=== PATIENT | male | born 1945 | race Caucasian/White ===

== ENCOUNTER 2019-11-27 16:18 | Outpatient (CLI) | payer MEDICARE, SELFPAY ==
--- NOTE | ~2019-11-27 | CT_ITS ---
EXAMINATION: CT sinus wo con DATE: 11/27/2019 17:07 INDICATION: Headache TECHNIQUE: Computed tomography (CT) of the paranasal sinuses was performed without intravenous contra st. The dose-length product (DLP) was 231.47 mGy-cm. Iterative reconstruction was used. COMPARISON: 03/24/2018 FINDINGS: There is normal development and pneumatization of the paranasal sinuses. There is mild synchro assembler hilary mucosal thickening of the left maxillary sinus. Mild mucosal thickening is also noted in the ante rior ethmoidal air cells. The frontal, sphenoid, and right maxillary sinuses are clear. The bilateral ostiomeatal complexes are patent. Visualized soft tissues are unremarkable. There are 3 mm of rightw lupe deviation of the nasal septum. IMPRESSION: 1. Mild sinus disease of the left maxillary sinus and anterior ethmoidal air cells without significan t interval change. Reviewed, dictated and finalized at location A. LY PRESERVATION CASEWORKER IMPRESSION: 1. Mild sinus disease of the left maxillary sinus and anterior ethmoidal air ce lls without significant interval change.
== END 2019-11-27 16:19 | disposition home or self-care (01) ==
PROVIDERS: PCP Internal Medicine; Visit Provider Internal Medicine
DX: R51 Headache (principal)
CPT/HCPCS: 70486

== ENCOUNTER 2020-07-02 08:45 | Outpatient (RCR) | payer MEDICARE, SELFPAY ==
--- NOTE | 2020-05-18 09:08 | PTOPEVAL ---
PHYSICAL THERAPY EVALUATION AND PLAN OF CARE 05-18-2020 The PT evaluation was completed for the diagnosis of vertigo. His plan of care is scheduled for 1-2 x/week for 6 weeks. Thank you for referring Chuckie to [facility]. Please review, sign, date and return this plan of care GUANACO. I agree with and certify that the following plan of care is medically necessary. Referring Physician Date Attending Provider: DO Shin ChurchPT Outpatient Evaluation Start: 05/18/20 08:09 Document 05/18/20 08:00 RAPHAEL (Rec: 05/18/20 09:08 RAPHAEL [id number]) Outpatient Past Medical History Past Medical History Source of Past Medical History Patient Neurological History Hx Neurological Disorders No Significant History Cardiovascular History Hx Coronary Stent Yes: 2016 X 1 Hx Hypercholesterolemia Yes: meds Hx Hypertension Yes: meds Hx Myocardial Infarction Yes: 2017 Hx Other Cardiac Disorders Yes: DR PINZON ONCE A YR Respiratory History Hx Respiratory Disorders No Significant History Gastrointestinal History Hx Crohn's Disease Yes: HEMICOLECTOMY Hx Gastroesophageal Reflux Disease Yes Genitourinary History Hx Dialysis Yes: JUN 2019- AUG 2019; monitoring-no longer have dialysis Hx Renal Disease Yes: STAGE [address] RM ONCE A MONTH Musculoskeletal History Hx Orthopedic Surgery Yes: RT ROTATOR CUFF REPAIR, LT FOOT surgery Hematological History Hx Hematological Disorders No Significant History Endocrine History Hx Diabetes Yes: meds HEENT History Hx Cataracts Yes: AYAH CATARACTS REMOVE Hx Macular Degeneration Yes Integumentary History Hx Other Skin Disorders Yes: 07/02/19 PORT A CATH INSERTED Reproductive History Hx Reproductive Disorders No Significant History Psychosocial History Hx Psychiatric Disorders No Significant History Pain History History of Any Previous or Ongoing No Significant History Instance of Pain Anesthesia History Hx Anesthesia Reactions No Significant History Evaluation Information Problem Diagnosis vertigo Onset April 16 2020 Previous Treatments Previous Treatments For This Problem no previous PT for dizziness Prior Level of Function Activity Level (Last 3 Months) Occupation retired Activity of Daily Living Ability Independent Indoor/Home Mobility Independent Community Mobility Independent Stairs Ability Independent Functional Cognition (Planning, Shopping Independent , Taking Medications) Cooking Yes Cleaning
--- NOTE | 2020-05-28 14:30 | PCPTNOTE ---
cancel appt for Jun 03; due to pt feeling better. He wants to keep the last reeval appt; if doing OK, he will call and cancel it;
--- NOTE | 2020-06-08 09:52 | PCPTNOTE ---
pt called and canceled today's appt;
--- NOTE | 2020-07-02 09:18 | PTOPEVAL ---
PHYSICAL THERAPY DISCHARGE 07-02-2020 Refer to the clinical summary below. All the goals were achieved. He will be discharged at this time. Thank you for referring Mr. Hickey to [facility]. Please review, sign, date and return this discharge GUANACO. I agree with and certify that the following plan of care is medically necessary. Referring Physician Date Attending Provider: Beau Goodwin, *PT Outpatient Discharge Document 07/02/20 08:50 RAPHAEL (Rec: 07/02/20 09:18 RAPHAEL [email or web address]) Subjective Information Chuckie states that he is doing Query Text:As Reported By Patient/ everything and not having any Family dizziness anymore- playing golf, outside yard work, inside house work; has the exercise to do if he does ever start to have dizziness again . He agrees to discharge from PT services. Self assessment Dizziness Handicap Index is score of 0. Pain Assessment Timing of Pain Assessment Timing of Pain Assessment Assessment Self Report Self Report Pain Level 0 Pain Score Pain Score 0: Self Report Lower Extremity Muscle Strength Testing General Lower Extremity Strength Gross Lower Extremity Strength activities: performed without any issues with dizziness or balance: -supine/sit transfer - pick up attendant an item off the floor - standing and turning head to the R and L 3x; - gaze stabilization in standing, 20 reps with head motions R/L and up/down; Gait Assessment Gait Assessment Ambulation Assistive Devices None Ambulation Ability Independent Additional Ambulation Comments good gait pattern, no unsteadiness or problems with walking; Rehab Teaching Rehab Teaching Teaching Topic Rehab Teaching Topic Components Diagnosis,Home Program Recipient Patient Learning Preferences Audio,Demonstration,Discussion ,One-on-One Instruction Barriers to Learning None Readiness to Learn Excellent Response Returns Demonstration, Verbalizes Understanding Method Demonstration,Discussion,One- On-One Instruction Additional Rehab Teachin
== END 2020-07-02 13:26 | disposition home or self-care (01) ==
LOC: ANHPT 08:45
PROVIDERS: PCP Internal Medicine; Visit Provider Internal Medicine
DX: R42 Dizziness and giddiness (principal)
CPT/HCPCS: 97110; 97161

== ENCOUNTER → 2020-09-29 08:53 | Outpatient (CLI) | payer MEDICARE, SELFPAY ==
--- NOTE | ~2020-09-29 | XR_ITS ---
EXAMINATION: XR TMJ BI DATE: 09/29/2020 09:23 INDICATION: Jaw pain TECHNIQUE: Open and closed mouth views of the left and right temporomandibular joints were obtained. 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 Alignment is normal with normal motion of the mandibular condyles. No fractures. Dental implants at the mandible and maxilla. IMPRESSION: 1. 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 Reviewed, dictated and finalized at location B. SIT BUS OPERATOR
== END ==
PROVIDERS: PCP Internal Medicine; Visit Provider Nurse Practitioner
DX: R68.84 Jaw pain (principal); M19.09 Primary osteoarthritis, other specified site
CPT/HCPCS: 70330

== ENCOUNTER 2021-02-20 10:08 | Emergency (ER) | payer MEDICARE, SELFPAY ==
--- NOTE | ~2021-02-20 | US_ITS ---
EXAMINATION:US venous doppler LE LT INDICATION:Left leg swelling and pain TECHNIQUE: Multiple grayscale, color flow and Doppler images of the left lower extremity deep venous systems were obtained and reviewed. COMPARISON:No prior studies for comparison. FINDINGS: The common femoral, superficial femoral and popliteal veins demonstrate normal respiratory variation, augmentation and compressibility. Color flow is also seen within the posterior tibial, pe roneal, greater saphenous and profunda veins. IMPRESSION: 1: No lower extremity deep venous thrombosis. Reviewed, dictated and finalized at location A.
--- NOTE | ~2021-02-20 | XR_ITS ---
XR foot LT min 3V 02/20/2021 10:51 Indication: Left foot pain and swelling Procedure: 4 views left foot Comparison: 11/18/2020 Findings: There is mild osteoarthritis of the first MTP joint. No fracture, subluxation or dislocatio n is identified. No erosive changes. Lisfranc joint intact. There are soft tissue swelling lateral to the ankle. No foreign bodies. There is a calcaneal enthesophyte at the plantar surface. Impression: 1: No acute fracture. Reviewed, dictated and finalized at location A. Impression: 1: No acute fracture.
--- NOTE | ~2021-02-20 | XR_ITS ---
XR ankle LT min 3V 02/20/2021 10:51 Indication: Left foot and ankle swelling. Golf injury. Procedure: 4 views left ankle Comparison: 05/26/2011 Findings: There is a chronic fracture deformity posterior superior margin of the calcaneus. There is an ossific density distal to the fibula, suspicious for avulsion fracture. There is moderate lateral soft tissue swelling. Ankle mortise intact. Talar dome within normal limits. There is a degenerative calcaneal enthesophyte. Impression: 1: Probable distal fibular avulsion fracture, possibly acute. Moderate lateral soft tissue swelling. Reviewed, dictated and finalized at location A. Impression: 1: Probable distal fibular avulsion fracture, possibly acute. Moderate lateral soft tissue swelling.
[2021-02-20 10:13] VITALS: BP 137/73; PULSE 88; RESP 18; TEMP 36.6; O2SAT 98
--- NOTE | 2021-02-20 10:41 | ED.GENADULT ---
HPI - General Adult General Chief complaint: Extremity Injury, Lower Stated complaint: L foot swelling,pain Time Seen by Provider: 02/20/21 10:15 Source: patient Mode of arrival: ambulatory Limitations: no limitations History of Present Illness HPI narrative: Patient presents for evaluation of pain and swelling in the left ankle and left foot. He indicates 12 days ago he was playing golf and felt as though his shoe was too tight. At that time he noted swelling to the left ankle and foot, which has persisted since that time. He denies any trauma to the affected area. He states with elevation of the left lower extremity he does not experience any pain. However he does have pain in the left ankle and foot when the left lower extremity is dependent. He states that his pain is sharp, shooting, burning, aching with associated numbness and tingling. He rates the pain 6 out of 10 in severity with his left leg dependent. He has been taking Tylenol for pain. Has an underlying history of hypertension, hyperlipidemia, diabetes, Crohn's, CAD status post stent placement, CKD, previously on dialysis. Of note, he had some type of operative procedure by Dr Gomez on the left ankle/foot many years ago after he sustained an injury to the affected area from the ladder. Related Data Home Medications Medication Instructions Recorded Confirmed adalimumab 40 mg/0.8 mL 40 mg SUB-Q [id number] 09/03/19 11/18/20 subcutaneous syringe kit aspirin 81 mg tablet,delayed 81 mg PO DAILY 09/03/19 11/18/20 release atorvastatin 40 mg tablet 40 mg PO DAILY 09/03/19 11/18/20 azathioprine 75 mg tablet 75 mg PO DAILY 09/03/19 11/18/20 carvedilol 12.5 mg tablet 12.5 mg PO Q12H 09/03/19 11/18/20 multivitamin 1 tablet PO DAILY 09/03/19 11/18/20 Ocuvite Eye Health 1 tablet PO DAILY 10/18/19 11/18/20 Allergies Allergy/AdvReac Type Severity Reaction Status Date / Time No Known Allergies Allergy Verified 02/20/21 10:23 Review of Systems Review of Systems: Narrative: CONSTITUTIONAL: Denies fever, chills, or sweats. EYES: Denies visual changes, redness, or discharge. ENT: Denies rhinorrhea, congestion, sore throat, or otalgia. CARDIOVASCULAR: Denies chest pain, palpitations, or edema. RESPIRATORY: Denies cough or dyspnea. GASTROINTESTINAL: Denies abdominal pain, nausea, vomiting, or diarrhea. GENITOURINARY: Denies dysuria or hematuria. SKIN: Reports redness to left ankle left foot denies rash or itching. MUSCULOSKELETAL: Reports pain in left ankle and foot. Denies back pain or myalgia. NEUROLOGIC: Denies headache, numbness, dizziness, or weakness. PSYCHIATRIC: Denies anxiety or depression. [facility] Past Medical History Medical History CKD (chronic kidney disease) stage IV Crohn's disease Fever blister History of heart attack Hyperlipidemia Hypertension Peroneal tendinitis of left lower leg Recurrent cold sores Skin cancer Skin lesion Surgical History Surgical History (Updated 11/18/20 @ 12:53 by Denise Mejia, RT(R)) History of coronary artery stent placement x1 2016 History of foot surgery Left, Dr. Alarcon History of hemicolectomy Hx of cataract extraction Family History Family History Mother Patient's mother is Family history of cardiovascular disease Family history of heart disease in male family member before age 55 Father Patient's father is Family history of heart disease in male family member before age 55 Sibling Family history of malignant neoplasm Patient's sister is Other Breast cancer Diabetes mellitus Heart disease High cholesterol Hypertension Social History Social History Smoking status: Never smoker Alcohol intake: never Substance use: never Substance use type
[2021-02-20 11:29] LABS: Basophils Percent Auto 0.4 % (0.2-1.2); Eosinophils Absolute Auto 0.2 K/mm3 (0-0.3); Eosinophils Percent Auto 2.6 % (0-4.4); Hematocrit 34.9 % (42.0-52.0); Hemoglobin 11.3 g/dL (14.0-18.0); Immature Granulocyte Absolute 0.05 K/mm3 (0.00-0.031); Immature Granulocyte Percent A 0.7 % (0-0.5); Lymphocytes Absolute Auto 1.36 K/mm3 (0.9-3.2); Lymphocytes Percent Auto 18.3 % (18.3-44.2); Mean Corpuscular HGB Conc 32.4 g/dl (32-36); Mean Corpuscular Hemoglobin 29.6 pg (26-34); Mean Corpuscular Volume 91.4 fl (80-100); Mean Platelet Volume 8.7 fl (7.4-10.4); Monocytes Absolute Auto 0.7 K/mm3 (0.1-0.6); Monocytes Percent Auto 8.7 % (2.6-8.5); Neutrophils Absolute Auto 5.2 K/mm3 (1.3-6.7); Neutrophils Percent Auto 69.3 % (45.5-73.1); Platelet Count Result 219 k/mm3 (150-375); Red Blood Count 3.82 M/mm3 (4.6-6.20); Red Cell Distribution Width 14.6 % (11.5-14.5); White Blood Count 7.5 K/mm3 (4.5-10.0)
[2021-02-20 11:38] LABS: Prothrombin Time 14.1 Seconds (11.1-14.7)
[2021-02-20 11:39] LABS: Partial Thromboplastin Time 29.2 SECONDS (22.3-36.8)
[2021-02-20 11:42] LABS: Alanine Aminotransferase 22 U/L (4-50); Albumin Level 3.9 g/dL (3.5-5.1); Alkaline Phosphatase 128 U/L (38-126); Anion Gap 7 mmol/L (8-16); Aspartate Amino Transferase 33 U/L (17-59); Bilirubin,Total 0.3 mg/dL (0.2-1.3); Blood Urea Nitrogen 41 mg/dL (9-20); Calcium 9.4 mg/dL (8.4-10.2); Carbon Dioxide 23 mmol/L (22-30); Chloride 110 mmol/L (98-107); Estimated CRCL calculation 20 ml/min; Estimated Glomerular Filt Rate 20; Glucose 154 mg/dL (75-110); Potassium 4.6 mmol/L (3.4-5.0); Sodium 140 mmol/L (137-145)
[2021-02-20 11:56] LABS: Erythrocyte Sedimentation Rate 133 mm/hr (0-20)
[2021-02-20 12:01] LABS: CRP 5.7 mg/dL (<1.0); Creatine Kinase 64 U/L (55-170)
[2021-02-20 12:35] VITALS: BP 142/78; PULSE 74; RESP 16; O2SAT 98
== END 2021-02-20 12:52 | disposition home or self-care (01) ==
PROVIDERS: Emergency Provider Nurse Practitioner; PCP Internal Medicine
DX: L03.116 Cellulitis of left lower limb (principal); S82.832A Other fracture of upper and lower end of left fibula, initial encounter for closed fracture; E78.5 Hyperlipidemia, unspecified; I25.10 Atherosclerotic heart disease of native coronary artery without angina pectoris; K50.90 Crohn's disease, unspecified, without complications; E11.22 Type 2 diabetes mellitus with diabetic chronic kidney disease; I12.9 Hypertensive chronic kidney disease with stage 1 through stage 4 chronic kidney disease, or unspecified chronic kidney disease; N18.4 Chronic kidney disease, stage 4 (severe); I25.2 Old myocardial infarction; Z85.828 Personal history of other malignant neoplasm of skin; Z95.5 Presence of coronary angioplasty implant and graft; Z98.49 Cataract extraction status, unspecified eye; X58.XXXA Exposure to other specified factors, initial encounter
CPT/HCPCS: 36415; 73610; 73630; 80053; 82550; 83735; 85025; 85610; 85652; 85730; 86140; 93971; 99284

== ENCOUNTER 2021-02-24 09:26 | Inpatient (IN) | payer MEDICARE, SELFPAY ==
--- NOTE | ~2021-02-24 | XR_ITS ---
EXAMINATION: XR chest PICC line INDICATION: PICC insertion TECHNIQUE: Portable AP chest at 1556 hours COMPARISON: 07/07/2019 FINDINGS: A right upper extremity PICC ends with its tip at the superior cavoatrial junction. There i s no pleural effusion or pneumothorax. The lungs are free of acute opacities. The cardiomediastinal s ilhouette is normal. IMPRESSION: 1. Right upper extremity PICC at the superior cavoatrial junction. Reviewed, dictated and finalized at location A.
--- NOTE | ~2021-02-24 | MR_ITS ---
EXAMINATION: MR ankle LT wo con DATE: 02/25/2021 08:58 INDICATION: Left ankle infection presenting with pain and swelling TECHNIQUE: Magnetic resonance imaging (MRI) of the left ankle was performed without intravenous contr ast. Sequences included axial, sagittal and coronal T1-weighted FSE and T2-weighted FS FSE. COMPARISON: Left ankle radiographs dated 02/24/2021 FINDINGS: Bones/other: Again seen is an old healed fracture deformity of the calcaneus. Alignment remains essentially anatom ic. No acute fracture. There is a region of osteolysis in the lateral aspect of the calcaneal body wi th destruction of the trabecular pattern and increased T2 signal with loss of normal T1 marrow fat si gnal consistent with osteomyelitis. The region of trabecular destruction measures approximately 3.4 c m anteroposteriorly, 1.6 cm medial to lateral and approximately 2.2 cm craniocaudally. This extends t o a cortical erosion at the trochlear eminence. There is also posterior extension with communication with chronic appearing screw tracks with surrounding sclerotic margins related to an earlier calcanea l internal fixation. There appears to be a sinus tract extending from the cortical erosion at the ret rocochlear eminence to a 2.5 x 2.7 x 0.9 cm loculated fluid collection in the subcutaneous tissue bibi rounding the peroneal tendon sheath consistent with a likely abscess. No definitive direct communicat ion with the minimal fluid in the tendon sheath. There is more extensive edema throughout the calcane us but no evident T1 marrow signal loss in the immediate subarticular bone to suggest medication with the subtalar or calcaneocuboid joints which demonstrate mild osteoarthritis. Remaining joint spaces appear relatively preserved. Medial ankle ligaments: Deep and superficial deltoid ligaments as well as the spring ligament are normal. Lateral ankle ligaments: The anterior and posterior inferior tibiofibular ligaments are normal. The anterior talofibular, calc aneofibular and posterior talofibular ligaments are normal. Tendons: Prominent thickening of the distal Achilles tendon consistent with tendinosis. There is a small sagit tally oriented cleft at the distalmost Achilles tendon which immediately overlies the entry site for the calcaneal screw tract suggesting this is related to prior. Peroneus longus tendon appears normal. There is a longitudinal split tear of the peroneus brevis brevis tendon centered at the level of the tip of the lateral malleolus. The tibialis anterior and extensor hallucis longus and extensor digito rum longus tendons are normal. The tibialis posterior, flexor digitorum longus and flexor hallucis lo ngus tendons are normal. Plantar fascia: Moderate-sized plantar calcaneal spur. There is mild thickening of the central component of the plant ar aponeurosis consistent with mild enthesopathy without surrounding soft tissue or marrow edema to s uggest acute plantar fasciitis. Fluid: Physiologic amount fluid in the joint spaces. No other abnormal fluid collections aside from the prev ious noted presumptive abscess at the lateral hindfoot. IMPRESSION: 1. Region of osteomyelitis in the posterolateral calcaneal body with suggestion of cortical destructi on with sinus tract near the retroperitoneum is communicating with a 2.5 x 2.7 x 0.9 cm subcutaneous abscess extending along the posterior and lateral margins of the peroneal tendon sheath. 2. Old healed fracture deformity of the calcaneus with old screw tracks at the posterior tuberosity w hich appear to communicate with the region of osteomyelitis. 3. Moderate tendinosis and distal Achilles tendon. 4. Mild enthesopathy of the proximal plantar aponeurosis. Reviewed, dictated and finalized at location A. 10
--- NOTE | ~2021-02-24 | XR_ITS ---
XR ankle LT min 3V DATE: 02/24/2021 10:10 INDICATION: Pain and swelling. No known injury. Diabetes. 4 views TECHNIQUE: 4 views COMPARISON: None FINDINGS: There is lateral soft tissue swelling of the ankle. There is a rectangular block-like defect of the posterior superior aspect of the calcaneus, possibly due to prior surgical resection. Prominent plantar calcaneal enthesopathy. No fracture or dislocation of the ankle or disruption of the ankle mortise is evident. No periosteal reaction or bone destruction. IMPRESSION: Lateral ankle soft tissue swelling; no fracture or dislocation, periosteal reaction or fidel ne destruction Plantar calcaneal enthesopathy Possible postoperative surgical defect of the posterior superior aspect of the calcaneus; recommend c linical correlation with any prior surgical intervention. Reviewed, dictated and finalized at location A. IMPRESSION: Lateral ankle soft tissue swelling; no fracture or dislocation, per iosteal reaction or bone destruction Plantar calcaneal enthesopathy Possible postoperative surgical defect of the posterior superior aspect of the calcaneus; recommend clinical correlation with any prior surgical intervention.
--- NOTE | ~2021-02-24 | XR_ITS ---
EXAMINATION: XR foot LT min 3V DATE: 02/25/2021 14:49 INDICATION: Status post surgery for left calcaneal osteomyelitis. TECHNIQUE: Dorsoplantar, two oblique and lateral views of the left foot were obtained. COMPARISON: MRI dated 02/25/2021 FINDINGS: Old healed fracture deformity of the left calcaneus. There is new likely antibiotic impregnated methy lmethacrylate in the lateral calcaneal body corresponding to the region of osteomyelitis identified o n earlier MRI. No acute fractures identified. Large plantar calcaneal spur. Mild osteoarthritis at th e subtalar and calcaneocuboid joints. Soft tissue swelling and expected postoperative gas at the late ral ankle and hindfoot. IMPRESSION: 1. Postoperative changes consistent with osteomyelitis debridement and likely antibiotic impregnated methylmethacrylate placement at the lateral aspect of the calcaneal body. See procedure note for furt her detail. Reviewed, dictated and finalized at location A. IMPRESSION: 1. Postoperative changes consistent with osteomyelitis debridement and likely a ntibiotic impregnated methylmethacrylate placement at the lateral aspect of the calcaneal body. See procedure note for further detail.
[2021-02-24 09:29] VITALS: BP 164/83; PULSE 84; RESP 23; TEMP 36.5; O2SAT 98
--- NOTE | 2021-02-24 09:45 | ED.GENADULT ---
HPI - General Adult General Chief complaint: Extremity Problem,Nontraumatic Stated complaint: RETURNING FOR FOOT ISSUE Time Seen by Provider: 02/24/21 09:33 Source: patient, RN notes reviewed and old records reviewed Mode of arrival: ambulatory Limitations: no limitations History of Present Illness HPI narrative: Patient is 75-year-old male who presents with left ankle pain that has been present for over 2 weeks had been seen over the weekend had evaluation and was diagnosed with cellulitis with plan to follow-up with orthopedic surgery this Monday patient has been using a pneumatic boot and notes that he continues to have redness and pain of the ankle joint that is worse with weightbearing he has been attempting elevation and rest without any improvement. Denies fever vomiting diarrhea or any injury or trauma denies similar occurrence in the past Related Data Home Medications Medication Instructions Recorded Confirmed adalimumab 40 mg/0.8 mL 40 mg SUB-Q [id number] 09/03/19 11/18/20 subcutaneous syringe kit aspirin 81 mg tablet,delayed 81 mg PO DAILY 09/03/19 11/18/20 release atorvastatin 40 mg tablet 40 mg PO DAILY 09/03/19 11/18/20 azathioprine 75 mg tablet 75 mg PO DAILY 09/03/19 11/18/20 carvedilol 12.5 mg tablet 12.5 mg PO Q12H 09/03/19 11/18/20 multivitamin 1 tablet PO DAILY 09/03/19 11/18/20 Ocuvite Eye Health 1 tablet PO DAILY 10/18/19 11/18/20 Allergies Allergy/AdvReac Type Severity Reaction Status Date / Time No Known Allergies Allergy Verified 02/24/21 09:35 Review of Systems Review of Systems: All systems reviewed & are unremarkable except as noted in HPI and below PMFSH Past Medical History Medical History CKD (chronic kidney disease) stage IV Crohn's disease Fever blister History of heart attack Hyperlipidemia Hypertension Peroneal tendinitis of left lower leg Recurrent cold sores Skin cancer Skin lesion Surgical History Surgical History History of coronary artery stent placement x1 2017 History of foot surgery Left, Dr. Alarcon History of hemicolectomy Hx of cataract extraction Family History Family History Mother Patient's mother is Family history of cardiovascular disease Family history of heart disease in male family member before age 55 Father Patient's father is Family history of heart disease in male family member before age 55 Sibling Family history of malignant neoplasm Patient's sister is Other Breast cancer Diabetes mellitus Heart disease High cholesterol Hypertension Social History Social History Smoking status: Never smoker Alcohol intake: never Substance use: never Substance use type: does not use Gender identity (if verbalized by the patient): Male Exam Narrative: Exam Narrative: GENERAL: Well-appearing, well-nourished, and in no acute distress. HEAD: Normocephalic, atraumatic. EYES: PERRLA and EOMI. ENT: Nares clear, no rhinorrhea or epistaxis. Mucous membranes moist. CHEST: Clear to auscultation. No respiratory distress. No wheezes rales or rhonchi HEART: Regular rate and rhythm. No murmur heard. Normal peripheral pulses. EXTREMITIES: Patient with swelling around the left ankle joint with redness and tenderness worse at the lateral and posterior aspect. No open wounds or lymphangitic streaking or fluctuance noted SKIN: Warm, dry, no rash. NEURO: No focal deficits. Alert and oriented x3. Neurovascularly intact. Capillary refill less than 2 seconds PSYCH: Normal mood and affect. Course Course Emergency Course: Patient evaluated the emergency department for his findings will be brought into the hospital with orthopedic evaluation to include MRI
[2021-02-24 10:24] LABS: Basophils Percent Auto 0.4 % (0.2-1.2); Eosinophils Absolute Auto 0.2 K/mm3 (0-0.3); Eosinophils Percent Auto 3.1 % (0-4.4); Hematocrit 32.5 % (42.0-52.0); Hemoglobin 10.7 g/dL (14.0-18.0); Immature Granulocyte Absolute 0.08 K/mm3 (0.00-0.031); Immature Granulocyte Percent A 1.2 % (0-0.5); Lymphocytes Absolute Auto 1.59 K/mm3 (0.9-3.2); Lymphocytes Percent Auto 23.3 % (18.3-44.2); Mean Corpuscular HGB Conc 32.9 g/dl (32-36); Mean Corpuscular Hemoglobin 29.4 pg (26-34); Mean Corpuscular Volume 89.3 fl (80-100); Mean Platelet Volume 8.7 fl (7.4-10.4); Monocytes Absolute Auto 0.6 K/mm3 (0.1-0.6); Monocytes Percent Auto 8.7 % (2.6-8.5); Neutrophils Absolute Auto 4.3 K/mm3 (1.3-6.7); Neutrophils Percent Auto 63.3 % (45.5-73.1); Platelet Count Result 253 k/mm3 (150-375); Red Blood Count 3.64 M/mm3 (4.6-6.20); Red Cell Distribution Width 14.2 % (11.5-14.5); White Blood Count 6.8 K/mm3 (4.5-10.0)
[2021-02-24 10:33] LABS: Anion Gap 9 mmol/L (8-16); Blood Urea Nitrogen 43 mg/dL (9-20); CRP 1.7 mg/dL (<1.0); Calcium 9.1 mg/dL (8.4-10.2); Carbon Dioxide 21 mmol/L (22-30); Chloride 109 mmol/L (98-107); Estimated Glomerular Filt Rate 21; Glucose 206 mg/dL (75-110); Potassium 4.7 mmol/L (3.4-5.0); Sodium 139 mmol/L (137-145); Uric Acid 6.8 mg/dL (3.5-8.5)
[2021-02-24 10:40] LABS: Erythrocyte Sedimentation Rate > 140 mm/hr (0-20)
[2021-02-24 11:15] VITALS: BP 159/88; PULSE 58; RESP 16; O2SAT 98
--- NOTE | 2021-02-24 11:30 | PC.NURSE ---
Pt resting on cart, non-labored respirations, aware of plan for admission. Pt reports L foot soreness
--- NOTE | 2021-02-24 13:48 | PC.NURSE ---
Report called to Brionna PALOMARES on , will call back when room is cleaned Pt ambulatory steady gait to ANNA
--- NOTE | 2021-02-24 13:55 | PM.IMHP ---
H&P: HPI History of Present Illness Date/Time: 02/24/21 13:55Thianju is a 75-year-old male patient who is borderline diabetic. The patient stated approximately 2 weeks ago he was out on the golf course when he noticed some pain to his left ankle. He felt like his foot was swollen and his shoe was too tight. He had no injury to that left ankle. Patient stated that this last Monday he came to the emergency room and was treated with antibiotics. The patient had been taking clindamycin since this past Monday. The patient tells me that the infection really isn't getting any worse but is not getting it any better either. He said the redness is about the same since Monday and the swelling and pain are about the same. The patient did not notice any drainage from that left ankle. He told me that he did have a heel reconstruction on that left heel. Dr. pringle has been consulted from the emergency room and agrees to see the patient. The patient stated he has seen Dr. pringle in the past but not for this cellulitis now. his white count is normal. H&H 10.7 and 32.5. ESR is greater than 140. The patient's creatinine is 2.9. However the patient does have chronic renal failure and had dialysis at 1 time. The patient was started on Primaxin and vancomycin per antibiotics Stewardship for diabetic cellulitis. left ankle x-ray was read as lateral ankle soft tissue swelling no fractures or dislocation periosteal reaction or bone destruction. the patient has no fever chills. The patient had a venous Doppler on 02/20/2021 which was read as normal. No DVT. The patient is being admitted to Observation on the date of service of 02/24/2021. Side note please see ER records from 02/20/2021 when he was 1st seen for this problem. Chief Complaint: Infection left ankle Review of Systems Review of Systems: All systems reviewed & are unremarkable except as noted in HPI and below Constitutional: Constitutional: Reports as per HPI and Reports no additional constitutional complaints Eyes: Eyes: Reports as per HPI and Reports no additional eye complaints ENT: Reports system reviewed and no additional complaints, except as documented and Reports Normal hearing present Cardiovascular: Cardiovascular: Reports no additional cardiovascular complaints Respiratory: Respiratory: Reports no additional respiratory complaints and Reports no additional respiratory complaints Gastrointestinal: Gastrointestinal: Reports as per HPI and Reports no additional gastrointestinal complaints Musculoskeletal: Musculoskeletal: Reports no additional musculoskeletal complaints Integumentary/Breasts: Skin/Breast: Reports system reviewed and no additional complaints, except as docu and Reports as per HPI Neurologic: Reports system reviewed and no additional complaints, except as documented, Reports as per HPI and Reports Normal hearing present Psychiatric: Psychiatric: Reports no additional psychiatric complaints and Reports as per HPI Endocrine: Endocrine: Reports no additional endocrine complaints Hematologic/Lymphatic: Hematologic/Lymphatic: Reports no additional hematologic/lymphatic complaints Allergic/Immunologic: Allergic/Immunologic: Reports no additional allergic/immunologic complaints [facility] Past Medical History Medical History (Updated 02/24/21 @ 14:23 by Dea Cheney NP) CKD (chronic kidney disease) stage IV Crohn's disease Fever blister History of heart attack Hyperlipidemia Hypertension Peroneal tendinitis of left lower leg Recurrent cold sores Skin cancer Skin lesion Surgical History Surgical History (Updated 02/24/21 @ 14:17 by Dea Cheney NP) History of coronary artery stent placement x1 2016 History of foot surgery Left calcaneus fracture reattached, Dr. Alarcon History of hemicolectomy due to Crohn's Hx of cataract extraction Family History Family History M
[2021-02-24 15:07] VITALS: BP 172/81; PULSE 59; RESP 17; TEMP 36.6; O2SAT 100
--- NOTE | 2021-02-24 15:30 | PM.CNOR ---
Assessment and Plan Assessment and plan (1) Cellulitis of left ankle: Code(s): L03.116 - Cellulitis of left lower limb Status: Acute Assessment and Plan: 75-year-old gentleman with a 2 week history of lateral left ankle swelling and redness. Unrelieved with 4 days of oral antibiotics. Medical comorbidities including diabetes, renal failure. Patient started on IV antibiotics. Agree with plan for MRI to rule out abscess or septic tenosynovitis. Will await results of MRI and determine definitive treatment. Conservative treatment with elevation, ice and activity modifications in the interim. (2) Peroneal tendinitis of left lower leg: Code(s): M76.72 - Peroneal tendinitis, left leg Status: Acute (3) CKD (chronic kidney disease): Qualifiers: Chronic kidney disease stage: stage 3 (moderate) Chronic kidney disease stage 3 subtype: stage 3b (GFR 30-44) Qualified Code(s): N18.32 - Chronic kidney disease, stage 3b Code(s): N18.9 - Chronic kidney disease, unspecified Status: Chronic (4) Type 2 diabetes mellitus: Qualifiers: Diabetes mellitus long goods drier insulin use: without long-term use Diabetes mellitus complication status: with neurologic complications Diabetes mellitus complication detail: with polyneuropathy Qualified Code(s): E11.42 - Type 2 diabetes mellitus with diabetic polyneuropathy Code(s): E11.9 - Type 2 diabetes mellitus without complications Status: Chronic History of Present Illness HPI Consult date: 02/24/21 Requesting physician: Jorden Man PA-C Chief complaint: cellulitis left ankle Narrative: Patient known previously to me for a calcaneus fracture of the left foot approximately 10 years ago. This was complicated by wound dehiscence uncomplicated wound care. Went on to heal this. He was most recently seen November 2020 for left peroneal tendinitis where he had a cortisone injection. He states that his peroneal pain and symptoms were completely resolved by the injection. Two weeks ago patient was out of town on a golf trip bony noted redness, swelling and pain to the lateral side of the left ankle and foot. Denies any injury. He was able to complete his golf trip continued to have swelling and redness. He presented to the emergency room here at [facility] February 20 was diagnosed with cellulitis and started on oral antibiotics. He did not have any improvement and return to the emergency room today. His initial symptoms began February 09 by his report. He is able to bear weight. He has been able to be active but with the foot in dependent position he has swelling pain and redness. Better with elevation. Review of Systems Constitutional: Constitutional: Denies fever(s) Eyes: Eyes: Denies blurry vision ENT: Reports Normal hearing present Cardiovascular: Cardiovascular: Denies chest pain and Denies dyspnea Respiratory: Respiratory: Denies dyspnea and Denies wheezing Gastrointestinal: Gastrointestinal: Denies abdominal pain Genitourinary: Genitourinary: Denies urinary urgency Musculoskeletal: Musculoskeletal: Reports as per HPI and Denies numbness Integumentary/Breasts: Skin/Breast: Denies changing lesions and Denies sores Neurologic: Reports Normal hearing present, Denies behavioral changes, Denies confusion, Denies numbness and Denies convulsions Psychiatric: Psychiatric: Denies behavioral changes, Denies confusion and Denies hallucinations Endocrine: Endocrine: Denies heat intolerance Hematologic/Lymphatic: Hematologic/Lymphatic: Denies easy bleeding Allergic/Immunologic: Allergic/Immunologic: Denies wheezing [facility] Past Medical History Medical History CKD (chronic kidney disease) stage IV Crohn's disease Fever blister History of heart attack Hyperlipidemia Hypertension Peroneal tendinitis of left lower leg Recurrent cold sores Skin cancer Skin lesion
[2021-02-24 15:45] VITALS: BMI 30.4
[2021-02-24 15:47] VITALS: BP 136/73; PULSE 71; RESP 16; TEMP 36.1; O2SAT 100
--- NOTE | 2021-02-24 15:49 | ADMGEN ---
This patient, Chuckie Hickey, was admitted to Medical Room 345-01. Patient/family oriented to hospital policies and general routines including ID bracelet, bed and alarms, visiting hours, pain management, procedures, bathroom and other care routines, personal items, smoking policy, room service/diet, and visiting hours. Information on how to activate the Rapid Response Team has been discussed. Patient/Family are encouraged to report perceived risks to care and to ask questions if they do not understand what they are told or what they should do.
[2021-02-24 16:12] LABS: Glucose Point of Care 85 (65-105)
[2021-02-24] MEDS: LACTATED RINGERS 1,000 ML 70 ML IV CONT (16:45)
[2021-02-24] MEDS: DOXAZOSIN MESYLATE 2 MG TABLET PO (17:46)
[2021-02-24 20:50] VITALS: BP 150/64; PULSE 68; RESP 16; TEMP 36.4; O2SAT 98
[2021-02-24] MEDS: FAMOTIDINE 20 MG/2 ML VIAL IV PUSH (20:55)
[2021-02-24 20:56] LABS: Glucose Point of Care 99 (65-105)
[2021-02-24 20:57] VITALS: PULSE 70
[2021-02-24] MEDS: hydrALAZINE 10 MG TABLET BY MOUTH (20:57)
[2021-02-24] MEDS: carvediloL 12.5 MG TABLET PO (20:57)
[2021-02-24] MEDS: HYDROcodone/acetaminophen (*CRX) 5-325 MG TABLET 1 TAB PO (22:47)
[2021-02-25] VITALS (21 sets, daily range): BP systolic 124–157; BP diastolic 53–77; PULSE 56–88; RESP 10–20; TEMP 35.9–37.1; O2SAT 94–100
[2021-02-25 06:07] LABS: Basophils Percent Auto 0.4 % (0.2-1.2); Eosinophils Absolute Auto 0.3 K/mm3 (0-0.3); Eosinophils Percent Auto 3.8 % (0-4.4); Hematocrit 32.8 % (42.0-52.0); Hemoglobin 10.6 g/dL (14.0-18.0); Immature Granulocyte Absolute 0.07 K/mm3 (0.00-0.031); Lymphocytes Absolute Auto 1.77 K/mm3 (0.9-3.2); Lymphocytes Percent Auto 25.6 % (18.3-44.2); Mean Corpuscular HGB Conc 32.3 g/dl (32-36); Mean Corpuscular Hemoglobin 29.4 pg (26-34); Mean Corpuscular Volume 90.9 fl (80-100); Mean Platelet Volume 8.7 fl (7.4-10.4); Monocytes Absolute Auto 0.8 K/mm3 (0.1-0.6); Monocytes Percent Auto 11.8 % (2.6-8.5); Neutrophils Percent Auto 57.4 % (45.5-73.1); Platelet Count Result 231 k/mm3 (150-375); Red Blood Count 3.61 M/mm3 (4.6-6.20); Red Cell Distribution Width 14.3 % (11.5-14.5); White Blood Count 6.9 K/mm3 (4.5-10.0)
[2021-02-25 06:17] LABS: Anion Gap 5 mmol/L (8-16); Blood Urea Nitrogen 34 mg/dL (9-20); Calcium 8.6 mg/dL (8.4-10.2); Carbon Dioxide 24 mmol/L (22-30); Chloride 110 mmol/L (98-107); Estimated CRCL calculation 23 ml/min; Estimated Glomerular Filt Rate 23; Glucose 105 mg/dL (75-110); Potassium 4.7 mmol/L (3.4-5.0); Sodium 139 mmol/L (137-145)
[2021-02-25 06:39] LABS: Hemoglobin A1C 6.2 % (<5.7)
[2021-02-25 07:30] LABS: Glucose Point of Care 96 (65-105)
[2021-02-25] MEDS: PIOGLITAZONE HCL 15 MG TAB BY MOUTH (08:10)
[2021-02-25] MEDS: azaTHIOprine 25 MG TABLET PO (08:11)
[2021-02-25] MEDS: CHOLECALCIFEROL 1,000 UNITS TABLET 2000 UNITS PO (08:11)
[2021-02-25] MEDS: carvediloL 12.5 MG TABLET PO ×2 (08:11→20:56)
[2021-02-25] MEDS: OPTI-GEN TAB 1 TABLET PO (08:11)
[2021-02-25] MEDS: ATORVASTATIN 40 MG TABLET PO (08:11)
[2021-02-25] MEDS: azaTHIOprine 50 MG TABLET PO (08:11)
[2021-02-25] MEDS: hydrALAZINE 10 MG TABLET BY MOUTH ×2 (08:11→20:57)
[2021-02-25] MEDS: MULTIVITAMINS THERAPEUTIC TAB (*BKC) 1 TABLET PO (08:11)
[2021-02-25] MEDS: FAMOTIDINE 20 MG/2 ML VIAL IV PUSH ×2 (08:12→20:55)
[2021-02-25] MEDS: LACTATED RINGERS 1,000 ML 70 ML IV CONT (08:16)
--- NOTE | 2021-02-25 10:11 | P.HPUP_ITS ---
History and Physical Update Update Date/Time: 02/25/21 10:11 History and Physical has been reviewed, including an updated exam of the patient. MRI of the left ankle performed today were reviewed. This shows abscess of the lateral ankle with questionable communication of the lateral calc aneus. Indicated for debridement with excision of the abscess and evaluation of the calcaneus. There are NO changes in the patient's condition. Risks, benefits, and alternatives have been discussed and questions answered. Patient agrees to proceed with procedure. Plan: Debridement left ankle and hindfoot.
[2021-02-25] MEDS: LACTATED RINGERS 1,000 ML 30 ML IV CONT (12:05)
--- NOTE | 2021-02-25 12:22 | PM.IMPN ---
Progress Note: A&P Assessment and Plan (1) Osteomyelitis of left ankle: Code(s): M86.9 - Osteomyelitis, unspecified Status: Acute Assessment and Plan: Left ankle MRI showed region of osteomyelitis in posterolateral calcaneal body with subcutaneous abscess along peroneal tendon sheath. He is afebrile. Continue IV Vancomycin and primaxin Orthopedic surgery consultation appreciated Planning for debridement in OR today Blood cultures pending Analgesics available as needed for pain Continue gentle IV fluids while NPO (2) Type 2 diabetes mellitus: Qualifiers: Diabetes mellitus complication detail: with polyneuropathy Diabetes mellitus complication status: with neurologic complications Diabetes mellitus senior care insulin use: without exterminator helper termite use Qualified Code(s): E11.42 - Type 2 diabetes mellitus with diabetic polyneuropathy Code(s): E11.9 - Type 2 diabetes mellitus without complications Status: Chronic Assessment and Plan: A1c is 6.2. Blood sugars well controlled. Accu-Cheks, sliding scale insulin, hypoglycemic protocol Continue pioglitazone (3) Hypertension: Code(s): I10 - Essential (primary) hypertension Status: Chronic Assessment and Plan: Blood pressures reviewed and are well controlled. Last BP 136/58. Continue carvedilol Monitor BP trends (4) Crohn's disease: Code(s): K50.90 - Crohn's disease, unspecified, without complications Status: Chronic Assessment and Plan: No acute issues. Continue home regimen (5) CKD (chronic kidney disease): Qualifiers: Chronic kidney disease stage: stage 3 (moderate) Chronic kidney disease stage 3 subtype: stage 3b (GFR 30-44) Qualified Code(s): N18.32 - Chronic kidney disease, stage 3b Code(s): N18.9 - Chronic kidney disease, unspecified Status: Chronic Assessment and Plan: Creatinine 2.7. This is actually improved from baseline on review of prior labs. He is established with Nephrology and hemodialysis is being considered. Monitor renal function Subjective Date/time seen: 02/25/21 12:23 Interval history: Date of service: 02/25/21 Chuckie Hickey is a 75 year old male with a history of CKD, Crohn's disease, CAD, HTN, HLD who is seen in follow up for right foot osteomyelitis. He is feeling well today. He reports his pain is fairly well controlled, currently 4/10. Pain increases up to 7/10 when dependent. Denies fever, chills, nausea, vomiting, diarrhea. No dizziness, lightheadedness, or weakness. No shortness of breath, cough, chest pain. He is NPO and planning for surgery this afternoon. Review of Systems Review of Systems: All systems reviewed & are unremarkable except as noted in HPI and below Exam Narrative: Exam Narrative: Mr. Hickey is a well-nourished, well-appearing 75-year-old male who is lying semi-recumbent in bed. He appears comfortable and is in NARD. Neuro: awake, alert and oriented x4, speech clear, no focal neuro deficits noted HEENMT: normocephalic, atraumatic, EOMI, sclerae anicteric, moist oral mucosa, tongue midline, nares patent Neck: supple, no lymphadenopathy Respiratory: clear to auscultation bilaterally, nonlabored breathing Cardio: regular rate, regular rhythm with S1-S2 Abdomen: nondistended, normoactive bowel sounds, soft, nontender to palpation, no rigidity or guarding Extremities: left posterolateral foot is edematous with erythema and tenderness to palpation. Right lower extremity without edema, erythema, cyanosis, clubbing, or tenderness to palpation. DP pulses 2+ bilaterally. Brisk capillary refill. Able to wiggle toes bilaterally. Skin: no rashes or lesions, warm and dry Psych: appropriate mood and affect, judgment and insight intact Objective Data Vital Signs Vital Signs: Vital Signs - 24 hr 02/24/21 15:07 02/24/21 15:47 02/24/21 20:50 Temperature 98 F 97.0 F L 97.6 F P
--- NOTE | 2021-02-25 12:39 | WPDANESEPPF ---
Anes - Initial Pre Proc Eval Procedure: Operation Date: 02/25/21 12:45 Proposed Procedures p Debridement Left Ankle - Judah Alarcon MD Date/Time: 02/25/21 12:39 Surgeon: Patricia Nava PA-C Pre Op Diagnosis: cellulitis left ankle Patient Data Age: 75 Gender: M Height: 1.73 m Weight: 90.9 kg Last Vital Signs Temp 36.7 C 02/25/21 12:05 Pulse 58 L 02/25/21 12:05 Resp 20 02/25/21 12:05 BP 135/63 02/25/21 12:05 Pulse Ox 99 02/25/21 12:05 Allergies Allergy/AdvReac Type Severity Reaction Status Date / Time No Known Allergies Allergy Verified 02/24/21 15:34 Home Medications Medication Instructions Recorded Confirmed Type adalimumab 40 mg/0.8 mL 40 mg SUB-Q [id number] 09/03/19 02/24/21 History subcutaneous syringe kit aspirin 81 mg tablet,delayed 81 mg PO DAILY 09/03/19 02/24/21 History release atorvastatin 40 mg tablet 40 mg PO DAILY 09/03/19 02/24/21 History azathioprine 75 mg tablet 75 mg PO DAILY 09/03/19 02/24/21 History carvedilol 12.5 mg tablet 12.5 mg PO Q12H 09/03/19 02/24/21 History multivitamin 1 tablet PO DAILY 09/03/19 02/24/21 History Ocuvite Eye Health 1 tablet PO DAILY 10/18/19 02/24/21 History valacyclovir 500 mg tablet 500 mg PO DAILY PRN #7 tablet 03/17/20 02/24/21 Rx doxazosin 2 mg tablet 2 mg PO QPM #90 tablet 06/18/20 02/24/21 Rx hydralazine 10 mg tablet See Rx Instructions .ROUTE 06/18/20 02/24/21 Rx .COMPLEX #180 tablet pioglitazone 15 mg tablet See Rx Instructions .ROUTE 06/18/20 02/24/21 Rx .COMPLEX #90 tablet clindamycin HCl 300 mg PO Q6H #40 cap 02/20/21 02/24/21 Rx hydrocodone-acetaminophen 1 - 2 tablet PO Q6H PRN #20 tablet 02/20/21 02/24/21 Rx cholecalciferol (vitamin D3) 2,000 unit PO DAILY 02/24/21 02/24/21 History [Vitamin D3] Laboratory Tests 02/24/21 02/24/21 02/25/21 16:09 20:52 05:41 WBC 6.9 K/mm3 K/mm3 (4.5-10.0) RBC 3.61 M/mm3 L M/mm3 (4.6-6.20) Hgb 10.6 g/dL L g/dL (14.0-18.0) Hct 32.8 % L % (42.0-52.0) MCV 90.9 fl fl (80-100) MCH 29.4 pg pg (26-34) MCHC 32.3 g/dl g/dl (32-36) RDW 14.3 % % (11.5-14.5) Plt Count 231 k/mm3 k/mm3 (150-375) MPV 8.7 fl fl (7.4-10.4) Immature Gran % (Auto) 1.0 % H % (0-0.5) Neut % (Auto) 57.4 % % (45.5-73.1) Lymph % (Auto) 25.6 % % (18.3-44.2) Park % (Auto) 11.8 % H % (2.6-8.5) Eos % (Auto) 3.8 % % (0-4.4) Baso % (Auto) 0.4 % % (0.2-1.2) Lymph # (Auto) 1.77 K/mm3 K/mm3 (0.9-3.2) Park # (Auto) 0.8 K/mm3 H K/mm3 (0.1-0.6) Eos # (Auto) 0.3 K/mm3 K/mm3 (0-0.3) Baso # (Auto) 0.0 K/mm3 K/mm3 (0.0-0.1) Abs Immat Gran (auto) 0.07 K/mm3 H K/mm3 (0.00-0.031) Absolute Neuts (auto) 4.0 K/mm3 K/mm3 (1.3-6.7) Absolute Nucleated RBC 0.0 K/mm3 K/mm3 (0.0-0.012) Nucleated RBC % 0.0 % % (0.0-0.2) Sodium Potassium Chloride Carbon Dioxide Anion Gap BUN Creatinine Estim Creat Clear Calc Estimated GFR Glucose POC Capillary Glucose 85 mg/dl mg/dl 99 mg/dl mg/dl (65-105) (65-105) Hemoglobin A1c Calcium 02/25/21 02/25/21 02/25/21 05:41 05:41 07:27 WBC RBC Hgb Hct MCV MCH MCHC RDW Plt Count MPV Immature Gran % (Auto) Neut % (Auto) Lymph % (Auto) Park % (Auto) Eos % (Auto) Baso % (Auto) Lymph # (Auto) Park # (Auto) Eos # (Auto) Baso # (Auto) Abs Immat Gran (auto) Absolute Neuts (auto) Absolute Nucleated RB
[2021-02-25] MEDS: BUPIVACAINE HCL 0.5% PF 30 ML VIAL INFILTRATE (13:33)
[2021-02-25] MEDS: VANCOMYCIN HCL 1,000 MG VIAL 1000 MG TOPICAL (13:34)
--- NOTE | 2021-02-25 14:13 | PM.PROC ---
Procedure Note - Detailed Date of procedure: 02/25/21 Pre-op diagnosis: cellulitis left ankle Post-op diagnosis: other (Left calcaneus osteomyelitis, left lateral ankle abscess, peroneus brevis tear) Procedure performed: Excision osteomyelitis left calcaneus, excision abscess left ankle, peroneal tenolysis, insertion antibiotic delivery device Description of procedure: Indications: Patient is a 75-year-old gentleman with a history of calcaneus fracture complicated by wound healing problems and postoperative infection more than 10 years ago who presented with increasing left lateral ankle redness and swelling for the past 2 weeks. MRI demonstrates osteomyelitis and abscess. Patient taken to the operating room for debridement. What was done: Patient identified in the preoperative holding. Informed consent given. Operative extremity marked. Patient received intravenous antibiotics. Patient brought to the operating room where underwent general anesthetic by anesthesia team. Positioned supine on operating room table. Time-out performed confirming the patient, site of the surgery and the plan. Left foot and ankle prepped and draped in the usual sterile surgical fashion using a ChloraPrep skin solution. Local anesthetic with 0.5% Marcaine plain. Curvilinear incision made just posterior to the lateral malleolus with a 15 blade knife. Hemostasis controlled electrocautery. Deep to the fascia 2.5 cm abscess was encountered including purulent fluid and infected soft tissue. This was sharply excised with a 15 blade knife. The fluid was cultured and sent to the lab. This was thoroughly irrigated with antibiotic solution. Deep dissection was then carried down to the lateral calcaneus. Soft tissue was elevated off the lateral wall of the calcaneus and of bony lytic lesion was identified in the lateral body of the calcaneus at the posterior tuberosity. This measured approximately 1 cm in diameter and 2 cm in depth. Rongeur and curettes were used to debride the infected portion of the calcaneus back to good solid viable bone tissue. Wound thoroughly irrigated and the bone thoroughly irrigated antibiotic solution. Gentamicin and vancomycin cement then prepared on the back table and inserted into the defect of the calcaneus. This was allowed to harden. Wound irrigated and soft tissue then closed with 0 Prolene interrupted suture. Sterile dressing applied. The patient was then woken from anesthesia, extubated and taken to the recovery room in stable condition. All sponge, needle, instrument counts were correct at the end of the case. Implants: Gentamicin, vancomycin cement Anesthesia: GLMA Surgeon: Judah Alarcon MD Territory Development Manager: 1st assistant shift supervisor Estimated blood loss (mL): 50 Tourniquet time (min): 0 Drains: No Packing: No Pathology: yes (Soft tissue abscess and cultures, Gram stain) Complications: None Condition: stable Disposition: PACU Findings: 2.5 cm subfascial abscess lateral ankle in the retro malleolar area, 1 x 2 cm calcaneal osteomyelitis.
[2021-02-25] MEDS: fentaNYL CITRATE INJ (*CRX) 100 MCG/2 ML VIAL 25 MCG IV PUSH ×4 (14:16→14:34)
[2021-02-25 14:39] LABS: Glucose Point of Care 98 (65-105)
[2021-02-25] MEDS: HYDROcodone/acetaminophen (*CRX) 5-325 MG TABLET 1 TAB PO ×2 (17:41→23:41)
[2021-02-25] MEDS: DOXAZOSIN MESYLATE 2 MG TABLET PO (17:41)
[2021-02-25] MEDS: DOCUSATE SODIUM 100 MG CAPSULE PO (17:41)
[2021-02-25] MEDS: SODIUM CHLORIDE 0.9% IV 1,000 ML 30 ML (17:42)
[2021-02-25] MEDS: HYDROmorphon 0.2MG/ML PCA(*CRX 6 MG/30 ML PCA.VIAL IV CONT (17:44)
[2021-02-25 21:12] LABS: Glucose Point of Care 143 (65-105)
[2021-02-26] VITALS (11 sets, daily range): BP systolic 118–132; BP diastolic 54–79; PULSE 63–86; RESP 16; TEMP 35.8–36.4; O2SAT 95–100
[2021-02-26] MEDS: ACETAMINOPHEN 325 MG TABLET 650 MG PO (01:55)
[2021-02-26 06:13] LABS: Hemoglobin 10.3 g/dL (14.0-18.0); Mean Corpuscular HGB Conc 32.2 g/dl (32-36); Mean Corpuscular Hemoglobin 29.3 pg (26-34); Mean Corpuscular Volume 91.2 fl (80-100); Mean Platelet Volume 9.8 fl (7.4-10.4); Platelet Count Result 198 k/mm3 (150-375); Red Blood Count 3.51 M/mm3 (4.6-6.20); Red Cell Distribution Width 14.6 % (11.5-14.5); White Blood Count 7.8 K/mm3 (4.5-10.0)
[2021-02-26 06:22] LABS: Sodium 136 mmol/L (137-145)
[2021-02-26 06:26] LABS: Anion Gap 6 mmol/L (8-16); Blood Urea Nitrogen 28 mg/dL (9-20); Calcium 8.6 mg/dL (8.4-10.2); Carbon Dioxide 23 mmol/L (22-30); Chloride 107 mmol/L (98-107); Estimated CRCL calculation 21 ml/min; Estimated Glomerular Filt Rate 21; Glucose 108 mg/dL (75-110); Potassium 4.5 mmol/L (3.4-5.0)
[2021-02-26 07:28] LABS: Glucose Point of Care 106 (65-105)
--- NOTE | 2021-02-26 08:40 | PM.PNORT ---
Progress Note: A&P Assessment and Plan (1) Acute osteomyelitis of left calcaneus: Code(s): M86.172 - Other acute osteomyelitis, left ankle and foot Status: Acute Assessment and Plan: postoperative day 1. Excision osteomyelitis left calcaneus and drainage of abscess. Surgical findings and procedure reviewed with patient. He verbalizes understanding. PT/OT today with postop shoe, toe-touch weight-bearing. Patient has fracture boot at home which we can transition to with increased weight-bearing at that time. Infectious disease consultation. Cultures/ pathology pending. PICC line for IV antibiotics Pain control (2) Cellulitis of left ankle: Code(s): L03.116 - Cellulitis of left lower limb Status: Acute (3) Peroneal tendinitis of left lower leg: Code(s): M76.72 - Peroneal tendinitis, left leg Status: Acute (4) Type 2 diabetes mellitus: Qualifiers: Diabetes mellitus retirement insulin use: without insurance coder use Diabetes mellitus complication status: with neurologic complications Diabetes mellitus complication detail: with polyneuropathy Qualified Code(s): E11.42 - Type 2 diabetes mellitus with diabetic polyneuropathy Code(s): E11.9 - Type 2 diabetes mellitus without complications Status: Chronic Subjective Subjective Date/Time Seen: 02/26/21 08:40 Patient awake and alert. Up in chair. States some pain left ankle but better than preoperative pain. Tolerating regular diet. Review of Systems Constitutional: Constitutional: Denies fever(s) Eyes: Eyes: Denies blurry vision ENT: Reports Normal hearing present Cardiovascular: Cardiovascular: Denies chest pain and Denies dyspnea Respiratory: Respiratory: Denies dyspnea and Denies wheezing Gastrointestinal: Gastrointestinal: Denies abdominal pain Genitourinary: Genitourinary: Denies urinary urgency Musculoskeletal: Musculoskeletal: Reports as per HPI and Denies numbness Integumentary/Breasts: Skin/Breast: Denies changing lesions and Denies sores Neurologic: Reports Normal hearing present, Denies behavioral changes, Denies confusion, Denies numbness and Denies convulsions Psychiatric: Psychiatric: Denies behavioral changes, Denies confusion and Denies hallucinations Endocrine: Endocrine: Denies heat intolerance Hematologic/Lymphatic: Hematologic/Lymphatic: Denies easy bleeding Allergic/Immunologic: Allergic/Immunologic: Denies wheezing Exam Const: General: No confusion Orientation/consciousness: No confusion HENMT: Head: normal to inspection, normocephalic and atraumatic Eyes: Conjunctivae: conjunctivae normal Sclera: sclerae normal Neck: Neck: supple and nontender Chest: Chest palpation & inspection: normal inspection of the chest Resp: Effort & Inspection: normal respiratory effort and no audible wheezes Cardio: Rate: regular rate Rhythm: regular rhythm : General: Yes deferred Skin: General skin exam: no rashes or lesions noted Neuro: General: No confusion Extrem: General: capillary refill normal Right upper extremity: normal to inspection Left upper extremity: normal to inspection Right lower extremity: normal to inspection and hip/thigh Details: normal to inspection Left lower extremity: hip/thigh, knee, ankle (no calf tenderness) and foot Other: Dressing changed left ankle. Incision clean dry and intact. No active drainage or bleeding. Erythema resolved. Swelling improved. Good capillary refill in the toes. Sensation light touch intact. Negative Homans. Psych: Affect: normal affect Objective Data Vital Signs Vital Signs: Vital Signs - 24 hr 02/25/21 12:05 02/25/21 14:02 02/25/21 14:15 Temperature 98.1 F 98.8 F Pulse Rate 58 L 68 60 Respiratory Rate 20 13 14 Blood Pressure 135/63 137/77 142/75 H Pulse Oximetry 99 100 98 02/25/21 14:30 02/25/21 14:51 02/25/21 15:15 Temperature 97.0 F L Pulse Rate 56 L 70 74 Respiratory Rate 10 L 19
[2021-02-26] MEDS: HYDROcodone/acetaminophen (*CRX) 5-325 MG TABLET 1 TAB PO ×2 (09:09→13:33)
[2021-02-26] MEDS: azaTHIOprine 50 MG TABLET PO (09:10)
[2021-02-26] MEDS: OPTI-GEN TAB 1 TABLET PO (09:10)
[2021-02-26] MEDS: carvediloL 12.5 MG TABLET PO ×2 (09:10→21:14)
[2021-02-26] MEDS: DOCUSATE SODIUM 100 MG CAPSULE PO ×2 (09:10→19:00)
[2021-02-26] MEDS: ATORVASTATIN 40 MG TABLET PO (09:10)
[2021-02-26] MEDS: CHOLECALCIFEROL 1,000 UNITS TABLET 2000 UNITS PO (09:10)
[2021-02-26] MEDS: ASPIRIN 81 MG ENTERIC TABLET PO (09:10)
[2021-02-26] MEDS: MULTIVITAMINS THERAPEUTIC TAB (*BKC) 1 TABLET PO (09:11)
[2021-02-26] MEDS: hydrALAZINE 10 MG TABLET BY MOUTH ×2 (09:11→21:14)
[2021-02-26] MEDS: azaTHIOprine 25 MG TABLET PO (09:11)
[2021-02-26] MEDS: FAMOTIDINE 20 MG/2 ML VIAL IV PUSH ×2 (09:11→21:15)
[2021-02-26] MEDS: PIOGLITAZONE HCL 15 MG TAB BY MOUTH (09:11)
--- NOTE | 2021-02-26 10:33 | WPDANESPN ---
Anes - Prog Note Post-Op Date/Time: 02/26/21 10:33 Cardiovascular status: normal Respiratory status: normal Airway patency: baseline Mental status: baseline Post-Op hydration status: normal Vital Signs: Last Vital Signs Temp 97.3 F L 02/26/21 08:45 Pulse 86 02/26/21 09:10 Resp 16 02/26/21 08:45 BP 130/54 L 02/26/21 08:45 Pulse Ox 98 02/26/21 08:45 Pain Score (VAS): 0 I/O: Intake & Output 02/25/21 02/26/21 02/26/21 23:59 07:59 15:59 Intake Total 300 1050 420 Output Total 700 500 Balance -400 550 420 Laboratory Tests 02/26/21 06:03 02/26/21 06:03 02/25/21 02/25/21 02/26/21 14:18 21:07 06:03 WBC 7.8 RBC 3.51 L Hgb 10.3 L Hct 32.0 L MCV 91.2 MCH 29.3 MCHC 32.2 RDW 14.6 H Plt Count 198 MPV 9.8 Sodium Potassium Chloride Carbon Dioxide Anion Gap BUN Creatinine Estim Creat Clear Calc Estimated GFR Glucose POC Capillary Glucose 98 143 H Calcium 02/26/21 02/26/21 06:03 07:26 WBC RBC Hgb Hct MCV MCH MCHC RDW Plt Count MPV Sodium 136 L Potassium 4.5 Chloride 107 Carbon Dioxide 23 Anion Gap 6 L BUN 28 H Creatinine 2.90 H Estim Creat Clear Calc 21 Estimated GFR 21 L Glucose 108 POC Capillary Glucose 106 Calcium 8.6 Microbiology 02/25/21 13:29 Ankle Left Gram Stain - Final 02/24/21 14:21 Blood Blood Culture - Preliminary 02/24/21 14:21 Blood Blood Culture - Preliminary Patient Feedback: Patient satisfied with anesthetic care.
[2021-02-26 11:24] LABS: Glucose Point of Care 104 (65-105)
--- NOTE | 2021-02-26 13:40 | PM.IMPN ---
Progress Note: A&P Assessment and Plan (1) Acute osteomyelitis of left calcaneus: Code(s): M86.172 - Other acute osteomyelitis, left ankle and foot Status: Acute Assessment and Plan: Left ankle MRI showed region of osteomyelitis in posterolateral calcaneal body with subcutaneous abscess along peroneal tendon sheath. He is afebrile. S/p excision of osteomyelitis and abscess with insertion of antibiotic delivery device by Dr. Alarcon on 02/25. Continue IV Vancomycin and primaxin Orthopedic surgery and infectious disease consultation appreciated Blood cultures pending. Wound cultures collected intraoperatively with growth of gram positive cocci. Await final results and susceptibility report. Analgesics available as needed for pain (2) Abscess of tendon sheath of left ankle: Code(s): M65.072 - Abscess of tendon sheath, left ankle and foot Status: Acute Assessment and Plan: As above. 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 Blood sugars well controlled. Accu-Cheks, sliding scale insulin, hypoglycemic protocol Continue pioglitazone (4) Hypertension: Code(s): I10 - Essential (primary) hypertension Status: Chronic Assessment and Plan: Blood pressures reviewed and are well controlled. Last BP 132/85. Continue carvedilol Monitor BP trends (5) Crohn's disease: Code(s): K50.90 - Crohn's disease, unspecified, without complications Status: Chronic Assessment and Plan: No acute issues. Continue home regimen (6) CKD (chronic kidney disease): Qualifiers: Chronic kidney disease stage: stage 3 (moderate) Chronic kidney disease stage 3 subtype: stage 3b (GFR 30-44) Qualified Code(s): N18.32 - Chronic kidney disease, stage 3b Code(s): N18.9 - Chronic kidney disease, unspecified Status: Chronic Assessment and Plan: Creatinine is actually improved from baseline on review of prior labs. He is established with Nephrology and has plans for AV fistula as hemodialysis is anticipated in the future. Monitor renal function Subjective Date/time seen: 02/26/21 13:40 Interval history: Date of service: 02/26/21 Chuckie Hickey is a 75 year old male with a history of CKD, Crohn's disease, CAD, HTN, HLD who is seen in follow up for osteomyelitis of the left calcaneus. He is feeling well today. He tolerated his surgery without difficulties. His pain has been better controlled today, mostly rated as a 3/10. This afternoon it got up to a 7/10 but improved with analgesics. He participated in therapy today and tolerated this well. He denies nausea, vomiting, fever, or chills. His last bowel movement was 2 days ago when he denies diarrhea. He denies abdominal pain or cramping. No body aches, headaches, shortness breath, cough, or chest pain. His appetite has been good. He has no other concerns. Review of Systems Review of Systems: All systems reviewed & are unremarkable except as noted in HPI and below Exam Narrative: Exam Narrative: Mr. Hickey is a well-nourished, well-appearing 75-year-old male who is lying semi-recumbent in bed. He appears comfortable and is in NARD. Neuro: awake, alert and oriented x4, speech clear, no focal neuro deficits noted HEENMT: normocephalic, atraumatic, EOMI, sclerae anicteric, moist oral mucosa, tongue midline, nares patent Neck: supple, no lymphadenopathy Respiratory: clear to auscultation bilaterally, nonlabored breathing Cardio: regular rate, regular
[2021-02-26 15:54] LABS: Glucose Point of Care 102 (65-105)
[2021-02-26] MEDS: DOXAZOSIN MESYLATE 2 MG TABLET PO (19:00)
[2021-02-26 22:54] LABS: Glucose Point of Care 118 (65-105)
[2021-02-27] VITALS (7 sets, daily range): BP systolic 117–151; BP diastolic 50–68; PULSE 63–79; RESP 16–18; TEMP 36.2–36.4; O2SAT 95–97
[2021-02-27 06:29] LABS: Hematocrit 31.2 % (42.0-52.0); Hemoglobin 10.3 g/dL (14.0-18.0)
[2021-02-27 06:40] LABS: Anion Gap 5 mmol/L (8-16); Blood Urea Nitrogen 31 mg/dL (9-20); CRP 7.8 mg/dL (<1.0); Calcium 8.9 mg/dL (8.4-10.2); Carbon Dioxide 24 mmol/L (22-30); Chloride 109 mmol/L (98-107); Estimated CRCL calculation 21 ml/min; Estimated Glomerular Filt Rate 21; Glucose 115 mg/dL (75-110); Potassium 4.2 mmol/L (3.4-5.0); Sodium 138 mmol/L (137-145)
[2021-02-27] MEDS: FAMOTIDINE 20 MG/2 ML VIAL IV PUSH ×2 (08:14→22:28)
[2021-02-27] MEDS: azaTHIOprine 25 MG TABLET PO (08:15)
[2021-02-27] MEDS: DOCUSATE SODIUM 100 MG CAPSULE PO ×2 (08:15→17:18)
[2021-02-27] MEDS: MULTIVITAMINS THERAPEUTIC TAB (*BKC) 1 TABLET PO (08:15)
[2021-02-27] MEDS: OPTI-GEN TAB 1 TABLET PO (08:15)
[2021-02-27] MEDS: ASPIRIN 81 MG ENTERIC TABLET PO (08:15)
[2021-02-27] MEDS: CHOLECALCIFEROL 1,000 UNITS TABLET 2000 UNITS PO (08:15)
[2021-02-27] MEDS: PIOGLITAZONE HCL 15 MG TAB BY MOUTH (08:15)
[2021-02-27] MEDS: ATORVASTATIN 40 MG TABLET PO (08:15)
[2021-02-27] MEDS: azaTHIOprine 50 MG TABLET PO (08:16)
[2021-02-27] MEDS: carvediloL 12.5 MG TABLET PO ×2 (08:16→22:27)
[2021-02-27] MEDS: hydrALAZINE 10 MG TABLET BY MOUTH ×2 (08:16→22:27)
[2021-02-27 10:42] LABS: Glucose Point of Care 109 (65-105)
[2021-02-27 11:47] LABS: Glucose Point of Care 118 (65-105)
[2021-02-27 13:14] LABS: Vancomycin Trough 9.7 ug/mL (10.0-20.0)
--- NOTE | 2021-02-27 14:12 | PM.PNORT ---
Progress Note: A&P Time Spent With Patient Time: POST LEFT CALCANEUS DEBRIDEMENT FOR OSTEOMYELITIS AWAITING PIC LINE FOR [facility] ABX THERAPY. HE WILL BE Dcd ONCE HIS GETS PIC LINE. CONTINUE CURRENT MANAGEMENT Subjective Subjective Date/Time Seen: 02/27/21 14:12 POST OP LEFT CALCANEUS I AND D. OSTEOMYELITIS. AWAITING PIC LINE AND IV ABX THERAPY. NO NEW COMPLAINTS. Exam Extrem: Other: VSS AFEBRILE BOOT IN PLACE, DRESSING DRY OTHERWISE NV INTACT CALF SOFT NON TENDER NEG HOMANS SIGN Objective Data Vital Signs Vital Signs: Vital Signs - 24 hr 02/26/21 20:00 02/26/21 21:14 02/26/21 23:52 Temperature 36.0 C L Pulse Rate 77 77 Respiratory Rate 16 Blood Pressure 124/58 L Pulse Oximetry 100 99 02/27/21 06:18 02/27/21 08:16 Temperature 36.3 C L Pulse Rate 72 75 Respiratory Rate 16 Blood Pressure 131/50 L Pulse Oximetry 95 Intake/Output Intake/Output: Intake & Output 02/24/21 02/25/21 02/26/21 02/27/21 23:59 23:59 23:59 23:59 Intake Total 1040 1850 3755 1180 Output Total 250 2225 1350 850 Balance 790 -375 2405 330 Meds/Results Medications: Active Medications Generic Name Dose Route Start Last Admin Trade Name Freq PRN Reason Stop Dose Admin Acetaminophen 650 mg 02/25/21 15:00 02/26/21 01:55 Acetaminophen 325 Mg Tablet PO 650 mg Q6H PRN Administration Pain Rated 1-3 Hydrocodone Bitart/Acetaminophen 1 tab 02/26/21 08:47 02/26/21 13:33 Hydrocodone/Acetaminophen (*Crx) 5-325 Mg Tablet PO 1 tab Q3H PRN Administration Pain Rated 4-6 Aspirin 81 mg 02/26/21 09:00 02/27/21 08:15 Aspirin 81 Mg Enteric Tablet PO 81 mg DAILY MEHNAZ Administration Atorvastatin Calcium 40 mg 02/25/21 09:00 02/27/21 08:15 Atorvastatin 40 Mg Tablet PO 40 mg DAILY MEHNAZ Administration Azathioprine 25 mg 02/25/21 09:00 02/27/21 08:15 Azathioprine 25 Mg Tablet PO 25 mg QAM MEHNAZ Administration Azathioprine 50 mg 02/25/21 09:00 02/27/21 08:16 Azathioprine 50 Mg Tablet PO 50 mg QAM MEHNAZ Administration Bisacodyl 10 mg 02/25/21 15:00 Bisacodyl 10 Mg Suppository RECTAL DAILY PRN Constipation Carvedilol 12.5 mg 02/24/21 21:00 02/27/21 08:16 Carvedilol 12.5 Mg Tablet PO 12.5 mg Q12H MEHNAZ Administration Dextrose 12.5 gm 02/24/21 12:40 Dextrose 50% 25 Gm/50 Ml Syringe IV PUSH PRN PRN Hypoglycemia Protocol Dextrose 12.5 gm 02/24/21 14:21 Dextrose 50% 25 Gm/50 Ml Syringe IV PUSH PRN PRN Hypoglycemia Protocol Docusate Sodium 100 mg 02/25/21 17:00 02/27/21 08:15 Docusate Sodium 100 Mg Capsule PO 100 mg BID MEHNAZ Administration Doxazosin Mesylate 2 mg 02/24/21 18:00 02/26/21 19:00 Doxazosin Mesylate 2 Mg Tablet PO 2 mg QPM MEHNAZ Administration Famotidine 20 mg 02/24/21 21:00 02/27/21 08:14 Famotidine 20 Mg/2 Ml Vial IV PUSH 20 mg Q12HR MEHNAZ Administration Glucagon 1 mg 02/24/21 12:40 Glucagon For Inj 1 Mg Vial IM PRN PRN Hypoglycemia Protocol Glucagon 1 mg 02/24/21 14:21 Glucagon For Inj 1 Mg Vial IM PRN PRN Hypoglycemia Protocol Glucose 15 gm 02/24/21 14:21 Glucose Oral Gel 15 Gm Of Glucse In 37.5 Gm Tube PO PRN PRN Hypoglycemia Protocol Hydralazine HCl 10 mg 02/24/21 21:00 02/27/21 08:16 Hydralazine 10 Mg Tablet BY MOUTH 10 mg Q12HR MEHNAZ Administration Dextrose 1,000 mls @ 100 mls/hr 02/24/21 14:21 Dextrose 5% 1,000 Ml IVPB PRN PRN Hypoglycemia Protocol Vancomycin HCl 1,500 mg in 500 mls @ 333.333 mls/hr 02/26/21 01:00 02/26/21 02:19 Vancomycin 1,500 Mg/D5w 500 Ml IVPB 02/27/21 16:00 Infused Q36H MEHNAZ Infusion Imipenem/Cilastatin Sodium 250 mg in 100 mls @ 300 mls/hr 02/24/21 17:00 02/27/21 11:55 Primaxin 250 Mg/D5w 100 Ml IVPB 300 mls/hr Q6HR MEHNAZ Administration Vancomycin HCl 1,500 mg in 500 mls @ 333.333 mls/hr 02/28/21 08:00 Vancom
--- NOTE | 2021-02-27 15:13 | PM.IMPN ---
Progress Note: A&P Assessment and Plan (1) Acute osteomyelitis of left calcaneus: Code(s): M86.172 - Other acute osteomyelitis, left ankle and foot Status: Acute Assessment and Plan: Left ankle MRI showed region of osteomyelitis in posterolateral calcaneal body with subcutaneous abscess along peroneal tendon sheath. He is afebrile. S/p excision of osteomyelitis and abscess with insertion of antibiotic delivery device by Dr. Alarcon on 02/25. Continue IV Vancomycin and primaxin Orthopedic surgery and infectious disease consultation appreciated. Long-term IV antibiotics anticipated Blood cultures pending. Wound cultures collected intraoperatively with moderate Staphylococcus aureus. Await final results and susceptibility report. Analgesics available as needed for pain (2) Abscess of tendon sheath of left ankle: Code(s): M65.072 - Abscess of tendon sheath, left ankle and foot Status: Acute Assessment and Plan: As above. (3) Type 2 diabetes mellitus: Qualifiers: Diabetes mellitus complication detail: with polyneuropathy Diabetes mellitus complication status: with neurologic complications Diabetes mellitus shelter insulin use: without shelter use Qualified Code(s): E11.42 - Type 2 diabetes mellitus with diabetic polyneuropathy Code(s): E11.9 - Type 2 diabetes mellitus without complications Status: Chronic Assessment and Plan: A1c is 6.2. Blood sugars well controlled. Accu-Cheks, sliding scale insulin, hypoglycemic protocol Continue pioglitazone (4) Hypertension: Code(s): I10 - Essential (primary) hypertension Status: Chronic Assessment and Plan: Blood pressures reviewed and are well controlled. Last BP 131/50 Continue carvedilol Monitor BP trends (5) Crohn's disease: Code(s): K50.90 - Crohn's disease, unspecified, without complications Status: Chronic Assessment and Plan: No acute issues. Continue home regimen (6) CKD (chronic kidney disease): Qualifiers: Chronic kidney disease stage: stage 3 (moderate) Chronic kidney disease stage 3 subtype: stage 3b (GFR 30-44) Qualified Code(s): N18.32 - Chronic kidney disease, stage 3b Code(s): N18.9 - Chronic kidney disease, unspecified Status: Chronic Assessment and Plan: Creatinine is actually improved from baseline on review of prior labs. He is established with Nephrology and has plans for AV fistula as hemodialysis is anticipated in the future. Monitor renal function Additional Plan Zofran prn nausea Check orthostatic blood pressures Subjective Date/time seen: 02/27/21 15:14 Interval history: Date of service: 02/26/21 Chuckie Hickey is a 75 year old male with a history of CKD, Crohn's disease, CAD, HTN, HLD who is seen in follow up for osteomyelitis of the left calcaneus. He is doing fairly well today. He reports an episode of nausea this morning which has resolved. No emesis. He has been eating and drinking well. He had two episodes of dizziness today and did not feel that it was related to positional changes. He has never had episodes like this before. He denies pain in his foot. He has been able to get up and move around without difficulty. He denies dizziness or lightheadedness with ambulation. Denies weakness. Denies abdominal pain, nausea, vomiting, fever, chills, headache, or confusion. No shortness of breath, cough, or chest pain. He has no other concerns at this time. His sister is sitting at the bedside during interview and examination. Review of Systems Review of Systems: All systems reviewed & are unremarkable except as noted in HPI and below Exam Narrative: Exam Narrative: Mr. Hickey is a well-nourished, well-appearing 75-year-old male who is lying semi-recumbent in bed. He appears comfortable and is in NARD. Neuro: awake, alert and oriented x4, speech clear, no fo
[2021-02-27] MEDS: DOXAZOSIN MESYLATE 2 MG TABLET PO (17:17)
[2021-02-27] MEDS: SODIUM CHLORIDE 0.9% IV 1,000 ML 100 ML IV CONT (17:18)
[2021-02-27 17:24] LABS: Glucose Point of Care 225 (65-105)
[2021-02-27] MEDS: INSULIN ASPART (*BKC) 100 UNITS/ML SUB-Q (17:25)
[2021-02-27 22:27] LABS: Glucose Point of Care 109 (65-105)
[2021-02-28] VITALS (7 sets, daily range): BP systolic 136–150; BP diastolic 59–73; PULSE 58–76; RESP 16–18; TEMP 36.5–36.8; O2SAT 98–100
[2021-02-28] MEDS: SODIUM CHLORIDE 0.9% IV 1,000 ML 100 ML IV CONT (03:31)
[2021-02-28 06:35] LABS: Hematocrit 30.3 % (42.0-52.0); Hemoglobin 10.1 g/dL (14.0-18.0); Mean Corpuscular HGB Conc 33.3 g/dl (32-36); Mean Corpuscular Hemoglobin 29.4 pg (26-34); Mean Corpuscular Volume 88.1 fl (80-100); Mean Platelet Volume 8.7 fl (7.4-10.4); Platelet Count Result 213 k/mm3 (150-375); Red Blood Count 3.44 M/mm3 (4.6-6.20); Red Cell Distribution Width 14.2 % (11.5-14.5); White Blood Count 7.1 K/mm3 (4.5-10.0)
[2021-02-28 06:50] LABS: Anion Gap 5 mmol/L (8-16); Blood Urea Nitrogen 31 mg/dL (9-20); CRP 6.1 mg/dL (<1.0); Carbon Dioxide 23 mmol/L (22-30); Chloride 110 mmol/L (98-107); Estimated CRCL calculation 24 ml/min; Estimated Glomerular Filt Rate 24; Glucose 124 mg/dL (75-110); Sodium 138 mmol/L (137-145)
[2021-02-28 07:11] LABS: Glucose Point of Care 107 (65-105)
[2021-02-28] MEDS: PIOGLITAZONE HCL 15 MG TAB BY MOUTH (09:54)
[2021-02-28] MEDS: ASPIRIN 81 MG ENTERIC TABLET PO (09:54)
[2021-02-28] MEDS: CHOLECALCIFEROL 1,000 UNITS TABLET 2000 UNITS PO (09:54)
[2021-02-28] MEDS: carvediloL 12.5 MG TABLET PO ×2 (09:55→22:29)
[2021-02-28] MEDS: hydrALAZINE 10 MG TABLET BY MOUTH ×2 (09:55→21:55)
[2021-02-28] MEDS: azaTHIOprine 25 MG TABLET PO (09:55)
[2021-02-28] MEDS: OPTI-GEN TAB 1 TABLET PO (09:55)
[2021-02-28] MEDS: FAMOTIDINE 20 MG/2 ML VIAL IV PUSH ×2 (09:55→21:55)
[2021-02-28] MEDS: DOCUSATE SODIUM 100 MG CAPSULE PO ×2 (09:55→18:02)
[2021-02-28] MEDS: MULTIVITAMINS THERAPEUTIC TAB (*BKC) 1 TABLET PO (09:55)
[2021-02-28] MEDS: azaTHIOprine 50 MG TABLET PO (09:55)
[2021-02-28] MEDS: ATORVASTATIN 40 MG TABLET PO (09:55)
--- NOTE | 2021-02-28 10:39 | PM.IMPN ---
Progress Note: A&P Assessment and Plan (1) Acute osteomyelitis of left calcaneus: Code(s): M86.172 - Other acute osteomyelitis, left ankle and foot Status: Acute Assessment and Plan: Left ankle MRI showed region of osteomyelitis in posterolateral calcaneal body with subcutaneous abscess along peroneal tendon sheath. He is afebrile. S/p excision of osteomyelitis and abscess with insertion of antibiotic delivery device by Dr. Alarcon on 02/25. Continue IV Vancomycin and primaxin Orthopedic surgery and infectious disease consultation appreciated. Long-term IV antibiotics anticipated with plans for PICC line tomorrow. Appreciate recommendations. Blood cultures pending. Wound cultures collected intraoperatively with moderate growth of MRSA in aerobic culture. Await final results Dressing and wound care per orthopedic surgery Analgesics available as needed for pain (2) Abscess of tendon sheath of left ankle: Code(s): M65.072 - Abscess of tendon sheath, left ankle and foot Status: Acute Assessment and Plan: As above. (3) Orthostatic hypotension: Code(s): I95.1 - Orthostatic hypotension Status: Acute Assessment and Plan: Complained of dizziness on 02/27/21. Found to be orthostatic with decline in SBP of 26 points. BP remains stable and dizziness has resolved following IV fluid rehydration Repeat orthostatics. 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 Blood sugars well controlled. Accu-Cheks, sliding scale insulin, hypoglycemic protocol Continue pioglitazone (5) Hypertension: Code(s): I10 - Essential (primary) hypertension Status: Chronic Assessment and Plan: Blood pressures reviewed and are well controlled. Last BP 136/61. Continue carvedilol Monitor BP trends (6) Crohn's disease: Code(s): K50.90 - Crohn's disease, unspecified, without complications Status: Chronic Assessment and Plan: No acute issues. Continue home regimen (7) CKD (chronic kidney disease): Qualifiers: Chronic kidney disease stage: stage 3 (moderate) Chronic kidney disease stage 3 subtype: stage 3b (GFR 30-44) Qualified Code(s): N18.32 - Chronic kidney disease, stage 3b Code(s): N18.9 - Chronic kidney disease, unspecified Status: Chronic Assessment and Plan: Creatinine is actually improved from baseline on review of prior labs. He is established with Nephrology and has plans for AV fistula as hemodialysis is anticipated in the future. Monitor renal function Subjective Date/time seen: 02/28/21 10:39 Interval history: Date of service: 02/27/21 Chuckie Hickey is a 75 year old male with a history of CKD, Crohn's disease, CAD, HTN, HLD who is seen in follow up for osteomyelitis of the left calcaneus. He is doing well today. Postop pain is well controlled and he rates it about a 4/10. He has been doing therapy exercises and tolerating this well. He denies nausea or vomiting. His appetite has been good. He has not had any further episodes of dizziness. Denies lightheadedness. Denies shortness breath, cough, or chest pain. He had a bowel movement last night. He denies any urinary symptoms. Review of Systems Review of Systems: All systems reviewed & are unremarkable except as noted in HPI and below Exam Narrative: Exam Narrative: Mr. Hickey is a well-nourished, well-appearing 75-year-old male who
[2021-02-28 12:10] LABS: Glucose Point of Care 102 (65-105)
[2021-02-28 17:30] LABS: Glucose Point of Care 105 (65-105)
[2021-02-28] MEDS: DOXAZOSIN MESYLATE 2 MG TABLET PO (18:02)
[2021-02-28] MEDS: ACETAMINOPHEN 325 MG TABLET 650 MG PO (22:27)
[2021-02-28 22:48] LABS: Glucose Point of Care 126 (65-105)
[2021-03-01 05:39] VITALS: BP 155/59; PULSE 61; RESP 18; TEMP 36; O2SAT 97
[2021-03-01 06:07] LABS: Hematocrit 31.2 % (42.0-52.0); Hemoglobin 10.1 g/dL (14.0-18.0); Mean Corpuscular HGB Conc 32.4 g/dl (32-36); Mean Corpuscular Hemoglobin 29.1 pg (26-34); Mean Corpuscular Volume 89.9 fl (80-100); Mean Platelet Volume 8.7 fl (7.4-10.4); Platelet Count Result 218 k/mm3 (150-375); Red Blood Count 3.47 M/mm3 (4.6-6.20); Red Cell Distribution Width 14.2 % (11.5-14.5); White Blood Count 7.2 K/mm3 (4.5-10.0)
[2021-03-01 06:23] LABS: Anion Gap 7 mmol/L (8-16); Blood Urea Nitrogen 29 mg/dL (9-20); CRP 3.2 mg/dL (<1.0); Carbon Dioxide 21 mmol/L (22-30); Chloride 110 mmol/L (98-107); Estimated CRCL calculation 23 ml/min; Estimated Glomerular Filt Rate 23; Glucose 143 mg/dL (75-110); Potassium 3.7 mmol/L (3.4-5.0); Sodium 138 mmol/L (137-145)
[2021-03-01 08:00] LABS: Glucose Point of Care 94 (65-105)
[2021-03-01] MEDS: azaTHIOprine 50 MG TABLET PO (09:23)
[2021-03-01] MEDS: CHOLECALCIFEROL 1,000 UNITS TABLET 2000 UNITS PO (09:23)
[2021-03-01 09:24] VITALS: PULSE 68
[2021-03-01] MEDS: carvediloL 12.5 MG TABLET PO ×2 (09:24→20:00)
[2021-03-01] MEDS: DOCUSATE SODIUM 100 MG CAPSULE PO ×2 (09:24→17:00)
[2021-03-01] MEDS: MULTIVITAMINS THERAPEUTIC TAB (*BKC) 1 TABLET PO (09:25)
[2021-03-01] MEDS: ASPIRIN 81 MG ENTERIC TABLET PO (09:25)
[2021-03-01] MEDS: PIOGLITAZONE HCL 15 MG TAB BY MOUTH (09:25)
[2021-03-01] MEDS: FAMOTIDINE 20 MG/2 ML VIAL IV PUSH ×2 (09:26→20:00)
[2021-03-01] MEDS: hydrALAZINE 10 MG TABLET BY MOUTH ×2 (09:26→20:00)
[2021-03-01 09:27] VITALS: RESP 18; O2SAT 97
[2021-03-01] MEDS: azaTHIOprine 25 MG TABLET PO (09:27)
[2021-03-01] MEDS: ATORVASTATIN 40 MG TABLET PO (09:27)
[2021-03-01] MEDS: OPTI-GEN TAB 1 TABLET PO (09:27)
--- NOTE | 2021-03-01 09:30 | PM.PNORT ---
Progress Note: A&P Assessment and Plan (1) Acute osteomyelitis of left calcaneus: Code(s): M86.172 - Other acute osteomyelitis, left ankle and foot Status: Acute Assessment and Plan: POD #4: Excision osteomyelitis left calcaneus and drainage of abscess. Continue PT/OT. TTWB LLE. Walker. Fracture boot at home- can transition to WBAT with fracture boot. Awaiting ID consult. Cultures reveal MRSA. Awaiting PICC line insertion. Will need home health arranged for dressing changes as well. Plan for suture removal at 14 days post op. Continue pain control. Elevate. Dispo: Home with home health for IV infusion/dressing changes. 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 Pain well controlled. Review of Systems Constitutional: Constitutional: Denies fever(s) Eyes: Eyes: Denies blurry vision ENT: Reports Normal hearing present Cardiovascular: Cardiovascular: Denies chest pain and Denies dyspnea Respiratory: Respiratory: Denies dyspnea and Denies wheezing Gastrointestinal: Gastrointestinal: Denies abdominal pain Genitourinary: Genitourinary: Denies urinary urgency Musculoskeletal: Musculoskeletal: Reports as per HPI and Denies numbness Integumentary/Breasts: Skin/Breast: Denies changing lesions and Denies sores Neurologic: Reports Normal hearing present, Denies behavioral changes, Denies confusion, Denies numbness and Denies convulsions Psychiatric: Psychiatric: Denies behavioral changes, Denies confusion and Denies hallucinations Endocrine: Endocrine: Denies heat intolerance Hematologic/Lymphatic: Hematologic/Lymphatic: Denies easy bleeding Allergic/Immunologic: Allergic/Immunologic: Denies wheezing Exam Const: General: No confusion Orientation/consciousness: No confusion HENMT: Head: normal to inspection, normocephalic and atraumatic Eyes: Conjunctivae: conjunctivae normal Sclera: sclerae normal Neck: Neck: supple and nontender Chest: Chest palpation & inspection: normal inspection of the chest Resp: Effort & Inspection: normal respiratory effort and no audible wheezes Cardio: Rate: regular rate Rhythm: regular rhythm : General: Yes deferred Skin: General skin exam: no rashes or lesions noted Neuro: General: No confusion Extrem: General: capillary refill normal Right upper extremity: normal to inspection Left upper extremity: normal to inspection Right lower extremity: normal to inspection and hip/thigh Details: normal to inspection Left lower extremity: hip/thigh, knee, ankle (no calf tenderness) and foot Other: Dressing changed left ankle. Incision clean dry and intact. No active drainage or bleeding. Erythema resolved. Swelling improved. Good capillary refill in the toes. Sensation light touch intact. Negative Homans. Psych: Affect: normal affect Objective Data Vital Signs Vital Signs: Vital Signs - 24 hr 02/28/21 09:55 02/28/21 14:23 02/28/21 14:25 Temperature 36.8 C 36.8 C Pulse Rate 63 58 L 64 Respiratory Rate 16 16 Blood Pressure 142/59 H 150/73 H Pulse Oximetry 100 100 02/28/21 14:27 02/28/21 22:29 02/28/21 23:23 Temperat
--- NOTE | 2021-03-01 11:28 | WPDINFPN2 ---
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 (as long as his TNF inhibitor continues) with TMP-[id number] Subjective Date/time seen: 03/01/21 11:28 Objective Data Vital Signs Vital Signs: Vital Signs - 24 hr 02/28/21 14:23 02/28/21 14:25 02/28/21 14:27 Temperature 36.8 C 36.8 C Pulse Rate 58 L 64 76 Respiratory Rate 16 16 Blood Pressure 142/59 H 150/73 H 149/69 H Pulse Oximetry 100 100 02/28/21 22:29 02/28/21 23:23 03/01/21 05:39 Temperature 36.8 C 36.0 C L Pulse Rate 72 73 61 Respiratory Rate 18 18 Blood Pressure 146/68 H 155/59 H Pulse Oximetry 98 97 03/01/21 09:24 03/01/21 09:27 Temperature Pulse Rate 68 Respiratory Rate 18 Blood Pressure Pulse Oximetry 97 Intake/Output Intake/Output: Intake & Output 02/26/21 02/27/21 02/28/21 03/01/21 23:59 23:59 23:59 23:59 Intake Total 3755 3920 4879 1230 Output Total 1350 1800 2475 1975 Balance 2405 2120 2404 -425 Meds/Results Medications: Active Medications Generic Name Dose Route Start Last Admin Trade Name Freq PRN Reason Stop Dose Admin Acetaminophen 650 mg 02/25/21 15:00 02/28/21 22:27 Acetaminophen 325 Mg Tablet PO 650 mg Q6H PRN Administration Pain Rated 1-3 Hydrocodone Bitart/Acetaminophen 1 tab 02/26/21 08:47 02/26/21 13:33 Hydrocodone/Acetaminophen (*Crx) 5-325 Mg Tablet PO 1 tab Q3H PRN Administration Pain Rated 4-6 Aspirin 81 mg 02/26/21 09:00 03/01/21 09:25 Aspirin 81 Mg Enteric Tablet PO 81 mg DAILY MEHNAZ Administration Atorvastatin Calcium 40 mg 02/25/21 09:00 03/01/21 09:27 Atorvastatin 40 Mg Tablet PO 40 mg DAILY MEHNAZ Administration Azathioprine 25 mg 02/25/21 09:00 03/01/21 09:27 Azathioprine 25 Mg Tablet PO 25 mg QAM MEHNAZ Administration Azathioprine 50 mg 02/25/21 09:00 03/01/21 09:23 Azathioprine 50 Mg Tablet PO 50 mg QAM MEHNAZ Administration Bisacodyl 10 mg 02/25/21 15:00 Bisacodyl 10 Mg Suppository RECTAL DAILY PRN Constipation Carvedilol 12.5 mg 02/24/21 21:00 03/01/21 09:24 Carvedilol 12.5 Mg Tablet PO 12.5 mg Q12H MEHNAZ Administration Dextrose 12.5 gm 02/24/21 12:40 Dextrose 50% 25 Gm/50 Ml Syringe IV PUSH PRN PRN Hypoglycemia Protocol Docusate Sodium 100 mg 02/25/21 17:00 03/01/21 09:24 Docusate Sodium 100 Mg Capsule PO 100 mg BID MEHNAZ Administration Doxazosin Mesylate 2 mg 02/24/21 18:00 02/28/21 18:02 Doxazosin Mesylate 2 Mg Tablet PO 2 mg QPM MEHNAZ Administration Famotidine 20 mg 02/24/21 21:00 03/01/21 09:26 Famotidine 20 Mg/2 Ml Vial IV PUSH 20 mg Q12HR MEHNAZ Administration Glucagon 1 mg 02/24/21 12:40 Glucagon For Inj 1 Mg Vial IM PRN PRN Hypoglycemia Protocol Glucose 15 gm 02/24/21 14:21 Glucose Oral Gel 15 Gm Of Glucse In 37.5 Gm Tube PO PRN PRN Hypoglycemia Protocol Hydralazine HCl 10 mg 02/24/21 21:00 03/01/21 09:26 Hydralazine 10 Mg Tablet BY MOUTH 10 mg Q12HR MEHNAZ Administration Dextrose 1,000 mls @ 100 mls/hr 02/24/21 14:21 Dextrose 5% 1,000 Ml IVPB PRN PRN Hypoglycemia Protocol Vancomycin HCl 1,500 mg in 500 mls @ 333.333 mls/hr 02/28/21 08:00 03/01/21 05:27 Vancomycin 1,500 Mg/D5w 500 Ml IVPB 03/10/21 23:59 Infused Q18H MEHNAZ Infusion Insulin Aspart 2 - 5 units 02/24/21 17:00 03/01/21 08:00 Insulin Aspart (*Bkc) 100 Units/Ml SUB-Q Not Given TIDWM [facility] Protocol Magnesium Hydroxide 30 ml 02/25/21 15:00 Magnesium Hydroxide Susp 30 Ml Udc PO BID PRN Constipation Morphine Sulfate 3 mg 02/26/21 08:47 Morphine Sulfate (*Crx) 4 Mg/Ml Inj IV PUS
--- NOTE | 2021-03-01 12:10 | PM.IMPN ---
Progress Note: A&P Assessment and Plan (1) Acute osteomyelitis of left calcaneus: Code(s): M86.172 - Other acute osteomyelitis, left ankle and foot Status: Acute Assessment and Plan: Left ankle MRI showed region of osteomyelitis in posterolateral calcaneal body with subcutaneous abscess along peroneal tendon sheath. He is afebrile. S/p excision of osteomyelitis and abscess with insertion of antibiotic delivery device by Dr. Alarcon on 02/25. Continue IV Vancomycin. Plan for PICC line placement today with plans to continue IV vancomycin through 03/10/2021 Appreciate orthopedic surgery and infectious disease input. Planning for discharge today following PICC line placement and arrangement of outpatient IV antibiotics with home health per ID. Wound cultures collected intraoperatively with moderate growth of MRSA in aerobic culture. Blood cultures negative to date Dressing and wound care per orthopedic surgery. He will need outpatient ortho follow-up arranged Analgesics available as needed for pain (2) Abscess of tendon sheath of left ankle: Code(s): M65.072 - Abscess of tendon sheath, left ankle and foot Status: Acute Assessment and Plan: As above. (3) Orthostatic hypotension: Code(s): I95.1 - Orthostatic hypotension Status: Acute Assessment and Plan: Complained of dizziness on 02/27/21. Found to be orthostatic with decline in SBP of 26 points. He was rehydrated with IV fluids and blood pressures improved. Symptoms have resolved. KIA hose Fall precautions (4) Type 2 diabetes mellitus: Qualifiers: Diabetes mellitus assistant terminal manager insulin use: without assistant terminal manager use Diabetes mellitus complication status: with neurologic complications Diabetes mellitus complication detail: with polyneuropathy Qualified Code(s): E11.42 - Type 2 diabetes mellitus with diabetic polyneuropathy Code(s): E11.9 - Type 2 diabetes mellitus without complications Status: Chronic Assessment and Plan: A1c is 6.2. Blood sugars well controlled. Accu-Cheks, sliding scale insulin, hypoglycemic protocol Continue pioglitazone (5) Hypertension: Code(s): I10 - Essential (primary) hypertension Status: Chronic Assessment and Plan: Blood pressures reviewed and have been generally well controlled. Last BP 155/59. Continue carvedilol Monitor BP trends (6) Crohn's disease: Code(s): K50.90 - Crohn's disease, unspecified, without complications Status: Chronic Assessment and Plan: No acute issues. Continue home regimen (7) CKD (chronic kidney disease): Qualifiers: Chronic kidney disease stage: stage 3 (moderate) Chronic kidney disease stage 3 subtype: stage 3b (GFR 30-44) Qualified Code(s): N18.32 - Chronic kidney disease, stage 3b Code(s): N18.9 - Chronic kidney disease, unspecified Status: Chronic Assessment and Plan: Creatinine is actually improved from baseline on review of prior labs. He is established with Nephrology and has plans for AV fistula as hemodialysis is anticipated in the future. Monitor renal function Subjective Date/time seen: 03/01/21 12:10 Interval history: Date of service: 02/28/21 Chuckie Hickey is a 75 year old male with a history of CKD, Crohn's disease, CAD, HTN, HLD who is seen in follow up for osteomyelitis of the left calcaneus. He is doing very well. His pain is very well controlled and he has no complaints. No further episodes of dizziness. He has been eating and drinking well. Denies shortness of breath, cough, or chest pain. He is eager for discharge home. Review of Systems Review of Systems: All systems reviewed & are unremarkable except as noted in HPI and below Exam Narrative: Exam Narrative: Mr. Hickey is a well-nourished, well-appearing 75-year-old male who is lying semi-recumbent in bed. He appears comfortable and is i
[2021-03-01 12:19] LABS: Glucose Point of Care 108 (65-105)
[2021-03-01 14:00] VITALS: BP 112/64; PULSE 70; RESP 16; TEMP 35.9; O2SAT 99
[2021-03-01 16:40] LABS: Glucose Point of Care 104 (65-105)
[2021-03-01] MEDS: DOXAZOSIN MESYLATE 2 MG TABLET PO (17:02)
[2021-03-01 19:55] VITALS: BP 142/67; PULSE 78; RESP 18; TEMP 36.4; O2SAT 97
[2021-03-01 20:00] VITALS: PULSE 76
[2021-03-01 20:09] LABS: Glucose Point of Care 123 (65-105)
[2021-03-01 20:13] LABS: Vancomycin Trough 22.7 ug/mL (10.0-20.0)
[2021-03-02] MEDS: ACETAMINOPHEN 325 MG TABLET 650 MG PO (03:40)
[2021-03-02 05:59] VITALS: BP 110/61; PULSE 72; RESP 16; TEMP 36.6; O2SAT 94
[2021-03-02 07:01] LABS: Glucose Point of Care 138 (65-105)
[2021-03-02] MEDS: FAMOTIDINE 20 MG/2 ML VIAL IV PUSH (08:29)
[2021-03-02] MEDS: azaTHIOprine 50 MG TABLET PO (08:30)
[2021-03-02] MEDS: MULTIVITAMINS THERAPEUTIC TAB (*BKC) 1 TABLET PO (08:30)
[2021-03-02] MEDS: OPTI-GEN TAB 1 TABLET PO (08:30)
[2021-03-02] MEDS: ATORVASTATIN 40 MG TABLET PO (08:30)
[2021-03-02] MEDS: azaTHIOprine 25 MG TABLET PO (08:30)
[2021-03-02] MEDS: ASPIRIN 81 MG ENTERIC TABLET PO (08:30)
[2021-03-02] MEDS: hydrALAZINE 10 MG TABLET BY MOUTH (08:30)
[2021-03-02] MEDS: DOCUSATE SODIUM 100 MG CAPSULE PO (08:30)
[2021-03-02] MEDS: PIOGLITAZONE HCL 15 MG TAB BY MOUTH (08:30)
[2021-03-02] MEDS: CHOLECALCIFEROL 1,000 UNITS TABLET 2000 UNITS PO (08:30)
[2021-03-02 08:31] VITALS: PULSE 66
[2021-03-02] MEDS: carvediloL 12.5 MG TABLET PO (08:31)
--- NOTE | 2021-03-02 10:36 | PM.DS ---
DS: Admitting Diagnosis Admitting Diagnosis Admitting Diagnosis: Left foot osteomyelitis DS: Discharge Diagnosis Discharge Diagnosis (1) Acute osteomyelitis of left calcaneus: Code(s): M86.172 - Other acute osteomyelitis, left ankle and foot Status: Acute Assessment and Plan: Left ankle MRI showed region of osteomyelitis in posterolateral calcaneal body with subcutaneous abscess along peroneal tendon sheath. He remained afebrile. He underwent excision of osteomyelitis and abscess with insertion of antibiotic delivery device by Dr. Alarcon on 02/25. Cultures collected intraoperatively showed moderate growth of MRSA. He was seen in consultation by Infectious Disease. He was treated with IV vancomycin and a PICC line was placed to continue IV vanc through 03/10/2021. He will then need long-term oral antibiotics for suppression given current therapy with TNF inhibitor. Bactrim recommended but can be adjusted based on clinical course, per ID recommendations and this will be arranged as an outpatient. He will follow-up with orthopedic surgery in 2 weeks. Home healthcare was arranged for outpatient IV antibiotic infusion and dressing care. His pain was well controlled. (2) Abscess of tendon sheath of left ankle: Code(s): M65.072 - Abscess of tendon sheath, left ankle and foot Status: Acute Assessment and Plan: As above. (3) Orthostatic hypotension: Code(s): I95.1 - Orthostatic hypotension Status: Acute Assessment and Plan: Complained of dizziness on 02/27/21. Found to be orthostatic with decline in SBP of 26 points. He was rehydrated with IV fluids and blood pressures improved. Symptoms resolved. Fall precautions discussed. Encouraged adequate p.o. hydration. Continue [place] hose. (4) Type 2 diabetes mellitus: Qualifiers: Diabetes mellitus emt intermediate insulin use: without care home use Diabetes mellitus complication status: with neurologic complications Diabetes mellitus complication detail: with polyneuropathy Qualified Code(s): E11.42 - Type 2 diabetes mellitus with diabetic polyneuropathy Code(s): E11.9 - Type 2 diabetes mellitus without complications Status: Chronic Assessment and Plan: A1c is 6.2. Blood sugars were well controlled. Continue pioglitazone (5) Hypertension: Code(s): I10 - Essential (primary) hypertension Status: Chronic Assessment and Plan: Blood pressures reviewed and were generally well controlled. Continue carvedilol (6) Crohn's disease: Code(s): K50.90 - Crohn's disease, unspecified, without complications Status: Chronic Assessment and Plan: No acute issues. Continue home regimen (7) CKD (chronic kidney disease): Qualifiers: Chronic kidney disease stage: stage 3 (moderate) Chronic kidney disease stage 3 subtype: stage 3b (GFR 30-44) Qualified Code(s): N18.32 - Chronic kidney disease, stage 3b Code(s): N18.9 - Chronic kidney disease, unspecified Status: Chronic Assessment and Plan: Creatinine is actually improved from baseline on review of prior labs. He is established with Nephrology and has plans for AV fistula as hemodialysis is anticipated in the future. DS: Summary Hospital Course Reason for hospitalization: Osteomyelitis Hospital Course: Date of admission: 02/24/2021 Date of discharge: 03/02/2021 Chuckie Hickey is a 75 year old male with a history of CKD, Crohn's disease, CAD, HTN, HLD, prior calcaneus fracture of left foot >10 years ago established with orthopedic surgery, and remote history of osteomyelitis of left foot who presented to the emergency department on 02/24/2021 with complaints of left ankle pain ongoing for 2 weeks. He had recently been diagnosed with cellulitis and started on clindamycin without improvement. Upon presentation to the emergency department, his BP was elevated with additional vital signs stab
--- NOTE | 2021-03-02 12:01 | PM.PNORT ---
Progress Note: A&P Assessment and Plan (1) Acute osteomyelitis of left calcaneus: Code(s): M86.172 - Other acute osteomyelitis, left ankle and foot Status: Acute Assessment and Plan: POD #5: Excision osteomyelitis left calcaneus and drainage of abscess. Continue PT/OT. TTWB LLE. Walker. Fracture boot on- can transition to WBAT with fracture boot. Cultures reveal MRSA. Appreciate Infectious Disease consult. PICC line insertion Yesterday. Will need home health arranged for dressing changes as well. Plan for suture removal at 14 days post op. appointment made for March 17 at 9:[address] Alarcon Continue pain control. Elevate. Dispo: Home with home health for IV infusion/dressing changes. (2) Cellulitis of left ankle: Code(s): L03.116 - Cellulitis of left lower limb Status: Acute (3) Peroneal tendinitis of left lower leg: Code(s): M76.72 - Peroneal tendinitis, left leg Status: Acute (4) Type 2 diabetes mellitus: Qualifiers: Diabetes mellitus fpc insulin use: without fpc use Diabetes mellitus complication status: with neurologic complications Diabetes mellitus complication detail: with polyneuropathy Qualified Code(s): E11.42 - Type 2 diabetes mellitus with diabetic polyneuropathy Code(s): E11.9 - Type 2 diabetes mellitus without complications Status: Chronic Subjective Subjective Date/Time Seen: 03/02/21 12:01 patient awake and alert. No interval complaints. Wanting to be discharged home. Exam Const: General: No confusion Orientation/consciousness: No confusion HENMT: Head: normal to inspection, normocephalic and atraumatic Eyes: Conjunctivae: conjunctivae normal Sclera: sclerae normal Neck: Neck: supple and nontender Chest: Chest palpation & inspection: normal inspection of the chest Resp: Effort & Inspection: normal respiratory effort and no audible wheezes Cardio: Rate: regular rate Rhythm: regular rhythm : General: Yes deferred Skin: General skin exam: no rashes or lesions noted Neuro: General: No confusion Extrem: General: capillary refill normal Right upper extremity: normal to inspection Left upper extremity: normal to inspection Right lower extremity: normal to inspection and hip/thigh Details: normal to inspection Left lower extremity: hip/thigh, knee, ankle (no calf tenderness) and foot Other: No active drainage or bleeding. Erythema resolved. Swelling improved. Good capillary refill in the toes. Sensation light touch intact. Negative Homans. Psych: Affect: normal affect Objective Data Vital Signs Vital Signs: Vital Signs - 24 hr 03/01/21 14:00 03/01/21 19:55 03/01/21 20:00 Temperature 96.7 F L 97.6 F Pulse Rate 70 78 76 Respiratory Rate 16 18 Blood Pressure 112/64 142/67 H Pulse Oximetry 99 97 03/02/21 05:59 03/02/21 08:31 Temperature 97.8 F Pulse Rate 72 66 Respiratory Rate 16 Blood Pressure 110/61 Pulse Oximetry 94 Intake/Output Intake/Output: Intake & Output 02/27/21 02/28/21 03/01/21 03/02/21 23:59 23:59 23:59 23:59 Intake Total 3920 4879 2060 990 Output Total 1800 2475 2775 650 Balance 2120 2404 -396 340 Meds/Results Radiology Results: ITS Impressions Ankle X-Ray 02/24/21 10:11 IMPRESSION: Lateral ankle soft tissue swelling; no fracture or dislocation, periosteal reaction or bone destruction Plantar calcaneal enthesopathy Possible postoperative surgical defect of the posterior superior aspect of the calcaneus; recommend clinical correlation with any prior surgical intervention. Ankle MRI 02/25/21 09:17 IMPRESSION: 1. Region of osteomyelitis in the posterolateral calcaneal body with suggestion of cortical destruction with sinus tract near the retroperitoneum is communicating with a 2.5 x 2.7 x 0.9 cm subcutaneous abscess extending along the posterior and lateral margins of the peroneal tendon sheath. 2. Old healed fracture
--- NOTE | 2021-03-02 15:10 | CONS_ITS ---
DATE OF CONSULTATION: 03/01/2021 REASON FOR CONSULTATION: Osteomyelitis. HISTORY OF PRESENT ILLNESS: A 75-year-old male, whom I may have seen 8 to 10 years ago for acute osteomyelitis of the left foot. He got intravenous antibiotics at that time, this is all in the setting of a left calcaneus fracture requiring ORIF. The patient had no subsequent troubles and I do not follow him in the office. He was admitted to the hospital on February 24 with 2 weeks of increasing pain over the lateral aspect of the left foot and the left heel, some radiation into the plantar aspect of the lateral foot. He also noted subjective edema. He was given clindamycin through the emergency room prior to admission without any improvement. The patient was then admitted and taken to the operating room on February [address] Alarcon. Findings included left calcaneus osteomyelitis, left lateral ankle abscess and peroneus brevis tear. Pathology was sent from the soft tissue. He also had 1 cm diameter, 2 cm depth calcaneus debridement of bone, but that was not sent for pathology. Gentamicin and vancomycin cement were then inserted into the defect of the calcaneus and wound was closed. His pain is improved. No fever, chills, sweats. No other recent antibiotics. ALLERGIES: NONE KNOWN. MEDICATIONS: Home medication list included: 1. Adalimumab every 2 weeks. 2. Azathioprine 75 mg daily. No other immunosuppressants. The azathioprine continues. HABITS: No tobacco. No alcohol. No illicit drugs. PAST MEDICAL HISTORY: Diabetes mellitus, previous hemicolectomy, coronary stents, cataract extractions, skin cancer, hypertension, hyperlipidemia, Crohn's disease, chronic renal insufficiency. REVIEW OF SYSTEMS: 14-point review otherwise negative. FAMILY HISTORY: Not pertinent to his present illness. SOCIAL HISTORY: He is single, retired and lives locally. PHYSICAL EXAMINATION: VITAL SIGNS: Consistently afebrile, 61, 18, 155/59. SKIN: Warm and dry. No rashes. EENT: Conjunctivae appear clear. Oropharynx, oral mucosa normal. Neck, no masses, thyromegaly, meningismus, adenopathy. LUNGS: Clear to auscultation and percussion. CARDIAC: Regular rate and rhythm. No murmur or gallop. ABDOMEN: Nontender, soft. No organomegaly. No masses. EXTREMITIES: Left foot is dressed. He has some scarring over the anterior tibia. He has no proximal erythema, crepitus, warmth, tenderness, and the right distal leg is planned. LABORATORY DATA: Pathology from the soft tissue shows acute inflammation and cellulitis. Blood cultures, no growth after 5 days incubation from the operating room, had moderate growth of MRSA, vancomycin KARISSA less than equal to 0.5, and shows susceptibility to trimethoprim sulfa, tetracyclines, but not to clindamycin. His white count currently is 7.2, has been normal since arrival. Hemoglobin 10.1, platelets are 218, earlier differential showed no abnormalities. Electrolytes normal other than high chloride. BUN is 29, creatinine 2.7, glucose is 143. His A1c 6.2%. CRP is 3.2 down from 7.8. RADIOLOGY: Foot x-rays showed soft tissue swelling with postsurgical defect suspected posterior superior calcaneus. Ankle MRI preop showed osteomyelitis suspected with cortical destruction, subcutaneous abscess, fracture deformity with old screw tract. Moderate tendinosis. ASSESSMENT: 1. Chronic osteomyelitis of the left calcaneus with acute exacerbation and soft tissue infection. The exacerbation is due to his immunosuppressants, has diabetes and his renal insufficiency. I do not think that this is a new infection, though cannot entirely rule out, because no histopathology of the bone was obtained. 2. Diabetes mellitus. 3. Immunosuppression and Crohn'S disease. 4. Methicillin-resistant
== END 2021-03-02 11:21 | disposition home health service (06) | DRG 623 ==
LOC: ANHED 12:51 → ANH3MED 14:30
PROVIDERS: Emergency Medicine Emergency Medical Services; Nurse Practitioner; Orthopaedic Surgery; Physician Assistant; Admitting Provider Family Medicine; Emergency Provider Emergency Medicine; PCP Internal Medicine; Visit Provider Family Medicine
PROC: 0JBR0ZZ Excision of Left Foot Subcutaneous Tissue and Fascia, Open Approach (ICD-10-PCS; principal; 2021-02-25 12:45)
DX: E11.69 Type 2 diabetes mellitus with other specified complication (principal); M86.172 Other acute osteomyelitis, left ankle and foot; L03.116 Cellulitis of left lower limb; K50.90 Crohn's disease, unspecified, without complications; B95.62 Methicillin resistant Staphylococcus aureus infection as the cause of diseases classified elsewhere; E11.628 Type 2 diabetes mellitus with other skin complications; E11.42 Type 2 diabetes mellitus with diabetic polyneuropathy; M76.72 Peroneal tendinitis, left leg; I95.1 Orthostatic hypotension; I12.9 Hypertensive chronic kidney disease with stage 1 through stage 4 chronic kidney disease, or unspecified chronic kidney disease; E11.22 Type 2 diabetes mellitus with diabetic chronic kidney disease; N18.32 Chronic kidney disease, stage 3b; I25.10 Atherosclerotic heart disease of native coronary artery without angina pectoris; E78.5 Hyperlipidemia, unspecified; I25.2 Old myocardial infarction; Z85.828 Personal history of other malignant neoplasm of skin; Z95.5 Presence of coronary angioplasty implant and graft; Z98.42 Cataract extraction status, left eye; Z98.41 Cataract extraction status, right eye
CPT/HCPCS: 36415; 36569; 73610; 73630; 73721; 80048; 80202; 82948; 83036; 84550; 85014; 85018; 85025; 85027; 85652; 86140; 87040; 87070; 87075; 87147; 87186; 87205; 88304; 96361; 96365; 96366; 96367; 96375; 96376; 97110; 97116; 97161; 97165; 97530; 97535; 99285; A9270; C1713; C1751; G0378; J0131; J0743; J1170; J1815; J2405; J2704; J3010; J3370; J7030; J7120

== ENCOUNTER 2021-03-04 09:14 | Outpatient (NON) | payer MEDICARE, SELFPAY ==
[2021-03-04 09:40] LABS: Anion Gap 10 mmol/L (8-16); Blood Urea Nitrogen 30 mg/dL (9-20); Calcium 8.8 mg/dL (8.4-10.2); Carbon Dioxide 21 mmol/L (22-30); Chloride 109 mmol/L (98-107); Estimated Glomerular Filt Rate 25; Glucose 206 mg/dL (75-110); Potassium 3.9 mmol/L (3.4-5.0); Sodium 140 mmol/L (137-145)
== END 2021-03-04 09:15 | disposition home or self-care (01) ==
PROVIDERS: PCP Internal Medicine; Visit Provider Internal Medicine Infectious Disease
DX: M86.172 Other acute osteomyelitis, left ankle and foot (principal); Z79.2 Long term (current) use of antibiotics; M65.072 Abscess of tendon sheath, left ankle and foot
CPT/HCPCS: 80048

== ENCOUNTER 2021-03-08 10:14 | Outpatient (RCR) | payer MEDICARE, SELFPAY ==
[2021-03-08 10:53] LABS: Basophils Percent Auto 0.4 % (0.2-1.2); Eosinophils Absolute Auto 0.3 K/mm3 (0-0.3); Hematocrit 32.5 % (42.0-52.0); Hemoglobin 10.5 g/dL (14.0-18.0); Immature Granulocyte Absolute 0.06 K/mm3 (0.00-0.031); Immature Granulocyte Percent A 0.9 % (0-0.5); Lymphocytes Absolute Auto 2.05 K/mm3 (0.9-3.2); Lymphocytes Percent Auto 29.1 % (18.3-44.2); Mean Corpuscular HGB Conc 32.3 g/dl (32-36); Mean Corpuscular Hemoglobin 29.1 pg (26-34); Mean Platelet Volume 9.1 fl (7.4-10.4); Monocytes Percent Auto 13.5 % (2.6-8.5); Neutrophils Absolute Auto 3.7 K/mm3 (1.3-6.7); Neutrophils Percent Auto 52.1 % (45.5-73.1); Platelet Count Result 231 k/mm3 (150-375); Red Blood Count 3.61 M/mm3 (4.6-6.20); Red Cell Distribution Width 14.7 % (11.5-14.5); White Blood Count 7.1 K/mm3 (4.5-10.0)
[2021-03-08 11:05] LABS: Anion Gap 7 mmol/L (8-16); Blood Urea Nitrogen 30 mg/dL (9-20); CRP 0.8 mg/dL (<1.0); Calcium 9.3 mg/dL (8.4-10.2); Carbon Dioxide 23 mmol/L (22-30); Chloride 109 mmol/L (98-107); Estimated Glomerular Filt Rate 20; Glucose 98 mg/dL (75-110); Potassium 4.4 mmol/L (3.4-5.0); Sodium 139 mmol/L (137-145)
[2021-03-08 12:19] LABS: Vancomycin Trough 21.4 ug/mL (10.0-20.0)
== END 2021-06-06 23:59 | disposition home or self-care (01) ==
LOC: HOME HLTH 10:14
PROVIDERS: PCP Internal Medicine; Visit Provider Internal Medicine Infectious Disease
DX: Z51.81 Encounter for therapeutic drug level monitoring (principal); M86.172 Other acute osteomyelitis, left ankle and foot; M65.072 Abscess of tendon sheath, left ankle and foot; Z79.2 Long term (current) use of antibiotics
CPT/HCPCS: 80048; 80202; 85025; 86140

== ENCOUNTER 2021-04-27 07:38 | Outpatient (RCR) | payer MEDICARE, SELFPAY ==
--- NOTE | 2021-03-09 09:35 | PM.PNORT ---
Progress Note: A&P Assessment and Plan (1) Acute osteomyelitis of left calcaneus: Code(s): M86.172 - Other acute osteomyelitis, left ankle and foot Status: Acute Assessment and Plan: One week, 5 days status post excision of osteomyelitis in the left calcaneus and drainage of abscess. The patient has been discharged home and is on home health. He has been getting IV antibiotics through his PICC line which is to be completed in 2 days from now. He is suffering from new onset lateral wound dehiscence which was initially evaluated in the outpatient orthopedic clinic 1 week ago. He was started on daily dressing changes at that time and referred to the wound clinic. Plan to transition today to silver rope to the lateral incision dehiscence and silver foam to the posterior heel blister. Patient to continue fracture boot with protected weight-bearing. Patient educated on dressing changes, note sent with him for his family for dressing changes and home health made aware of changes to dressings. Patient to follow-up in 1 week for re-evaluation. Reviewed signs and symptoms of infection to report to the emergency room immediately. We will potentially remove remaining sutures at next appointment. (2) Cellulitis of left ankle: Code(s): L03.116 - Cellulitis of left lower limb Status: Acute Assessment and Plan: No active redness, warmth or swelling. (3) Peroneal tendinitis of left lower leg: Code(s): M76.72 - Peroneal tendinitis, left leg Status: Acute Assessment and Plan: No complaints of pain. (4) Type 2 diabetes mellitus: Qualifiers: Diabetes mellitus machine long goods helper insulin use: without machine long goods helper use Diabetes mellitus complication status: with neurologic complications Diabetes mellitus complication detail: with polyneuropathy Qualified Code(s): E11.42 - Type 2 diabetes mellitus with diabetic polyneuropathy Code(s): E11.9 - Type 2 diabetes mellitus without complications Status: Chronic Assessment and Plan: Reviewed importance of proper nutrition and diabetic medication Compliance for overall optimal healing. Subjective Subjective Date/Time Seen: 03/09/21 09:35 Interval history: 75-year-old male presents to the [place] wound clinic today 1 week, 5 days status post excision of osteomyelitis of the left calcaneus excision of abscess. Insertion of antibiotic device placed as well. Patient seen in outpatient orthopedic clinic last week with concerns of a new posterior heel ulcer and wound dehiscence. He was started on dressing changes with Nu Gauze to the lateral aspect of the ankle. No new concerns today. Patient has 2 more days of IV antibiotics. PICC line in place at this time. He does have home health as well. He denies fever, chills, night sweats, nausea, vomiting or diarrhea. Review of Systems Review of Systems: All systems reviewed & are unremarkable except as noted in HPI and below Exam Const: General: No confusion Orientation/consciousness: No confusion HENMT: Head: normal to inspection, normocephalic and atraumatic Eyes: Conjunctivae: conjunctivae normal Sclera: sclerae normal Neck: Neck: supple and nontender Chest: Chest palpation & inspection: normal inspection of the chest Resp: Effort & Inspection: normal respiratory effort and no audible wheezes Cardio: Rate: regular rate Rhythm: regular rhythm : General: Yes deferred Skin: General skin exam: no rashes or lesions noted Neuro: General: No confusion Extrem: General: capillary refill normal Right upper extremity: normal to inspection Left upper extremity: normal to inspection Right lower extremity: normal to inspection and hip/thigh Details: normal to inspection Left lower extremity: hip/thigh, knee, ankle (no calf tenderness) and foot Other: Incision on the lateral aspect of the ankle with wound dehiscence measuring 1.9 x 0.5 x 0.7 cm, 100% red /pink wound b
[2021-03-09 13:16] VITALS: BMI 30.2
--- NOTE | 2021-03-16 10:20 | PM.PNORT ---
Progress Note: A&P Assessment and Plan (1) Acute osteomyelitis of left calcaneus: Code(s): M86.172 - Other acute osteomyelitis, left ankle and foot Status: Acute Assessment and Plan: 2 weeks, 5 days status post excision of osteomyelitis in the left calcaneus and drainage of abscess. The patient has been discharged home and is on home health. He has completed his course of IV antibiotics. Lateral wound dehiscence with mild improvement in appearance/dimensions today. Remaining sutures removed. Continue silver rope to the lateral incision dehiscence and silver foam to the posterior heel blister. Add mupirocin to the lateral wound bed. Patient to continue fracture boot with protected weight-bearing. Patient educated on dressing change orders. Patient to follow-up in 1 week for re-evaluation. Reviewed signs and symptoms of infection to report to the emergency room immediately. (2) Cellulitis of left ankle: Code(s): L03.116 - Cellulitis of left lower limb Status: Acute Assessment and Plan: No active redness, warmth or swelling. (3) Peroneal tendinitis of left lower leg: Code(s): M76.72 - Peroneal tendinitis, left leg Status: Acute Assessment and Plan: No complaints of pain. (4) Type 2 diabetes mellitus: Qualifiers: Diabetes mellitus terminal press operator insulin use: without terminal press operator use Diabetes mellitus complication status: with neurologic complications Diabetes mellitus complication detail: with polyneuropathy Qualified Code(s): E11.42 - Type 2 diabetes mellitus with diabetic polyneuropathy Code(s): E11.9 - Type 2 diabetes mellitus without complications Status: Chronic Assessment and Plan: Reviewed importance of proper nutrition and diabetic medication Compliance for overall optimal healing. Subjective Subjective Date/Time Seen: 03/16/21 10:20 Interval history: 75-year-old male presents to the [place] wound clinic today 2 weeks, 5 days status post excision of osteomyelitis of the left calcaneus excision of abscess. Insertion of antibiotic device placed as well. Patient being followed for a new posterior heel ulcer and wound dehiscence. We started daily dressing changes last week. Patient with no new concerns at this time. He denies fever, chills, night sweats, nausea, vomiting or diarrhea. Review of Systems Review of Systems: All systems reviewed & are unremarkable except as noted in HPI and below Exam Const: General: No confusion Orientation/consciousness: No confusion HENMT: Head: normal to inspection, normocephalic and atraumatic Eyes: Conjunctivae: conjunctivae normal Sclera: sclerae normal Neck: Neck: supple and nontender Chest: Chest palpation & inspection: normal inspection of the chest Resp: Effort & Inspection: normal respiratory effort and no audible wheezes Cardio: Rate: regular rate Rhythm: regular rhythm : General: Yes deferred Skin: General skin exam: no rashes or lesions noted Neuro: General: No confusion Extrem: General: capillary refill normal Right upper extremity: normal to inspection Left upper extremity: normal to inspection Right lower extremity: normal to inspection and hip/thigh Details: normal to inspection Left lower extremity: hip/thigh, knee, ankle (no calf tenderness) and foot Other: Incision on the lateral aspect of the ankle with wound dehiscence measuring 2.0x0.5x0.7cm, 100% red /pink wound bed. Remaining sutures removed. No purulence, no malodor. Posterior heel blister measures 0.2x0.2x0.1 cm. 100% red/ pink wound bed. No signs of active infection. No purulence. No malodor. No surrounding erythema. Swelling with improvement. Capillary refill in the toes and sensation intact to light touch. Negative Homans sign. Psych: Affect: normal affect Objective Data Meds/Results Medications: Active Medications Generic Name Dose Route Start Last Admin Trade Name Freq PRN Reason Stop Do
--- NOTE | 2021-03-23 08:39 | PM.PNORT ---
Progress Note: A&P Assessment and Plan (1) Chronic osteomyelitis of foot: Code(s): M86.679 - Other chronic osteomyelitis, unspecified ankle and foot Status: Acute Assessment and Plan: 3.5 weeks status post left calcaneal osteomyelitis and peroneal tendon debridement. Incision improving. Mild depth to the wound no signs of infection. Continue with silver rope and mupirocin gel. Daily dressing changes. Fracture boot for weight-bearing. Discussed with patient plan for antibiotic suppression for 1 year. Patient has procedure scheduled for AV fistula for dialysis. Okay from orthopedic standpoint to proceed with fistula. Follow up in 1 week for re-evaluation. Follow up in orthopedic office after that visit. Subjective Subjective Date/Time Seen: 03/23/21 08:39 Post Op day: 26 days Principal diagnosis: Left calcaneal osteomyelitis Interval history: patient presents to [facility] wound clinic for follow-up left heel. patient dressing changes at home with help of home health. No interim complaints. No fever chills. He is scheduled for AV fistula placement for his dialysis April 09. Exam Const: General: No confusion Orientation/consciousness: No confusion HENMT: Head: normal to inspection, normocephalic and atraumatic Eyes: Conjunctivae: conjunctivae normal Sclera: sclerae normal Neck: Neck: supple and nontender Chest: Chest palpation & inspection: normal inspection of the chest Resp: Effort & Inspection: normal respiratory effort and no audible wheezes Cardio: Rate: regular rate Rhythm: regular rhythm : General: Yes deferred Skin: General skin exam: no rashes or lesions noted Neuro: General: No confusion Extrem: General: capillary refill normal Right upper extremity: normal to inspection Left upper extremity: normal to inspection Right lower extremity: normal to inspection and hip/thigh Details: normal to inspection Left lower extremity: hip/thigh, knee, ankle (no calf tenderness) and foot Other: Incision on the lateral aspect of the ankle with wound dehiscence measuring 1.7x0.3x1.3cm, 100% red /pink wound bed. Remaining sutures removed. No purulence, no malodor. Posterior heel blister measures 0.2x0.2x0.1 cm. 100% red/ pink wound bed. No signs of active infection. No purulence. No malodor. No surrounding erythema. Swelling with improvement. Capillary refill in the toes and sensation intact to light touch. Negative Homans sign. Psych: Affect: normal affect Objective Data Meds/Results Medications: Active Medications Generic Name Dose Route Start Last Admin Trade Name Freq PRN Reason Stop Dose Admin Mupirocin 1 applic 03/16/21 08:34 Mupirocin 2% Oint 22 Gm Tube TOPICAL 06/16/21 23:59 PRN PRN Wound Care Silver 1 each 03/09/21 13:36 Silver Foam Band (Mepilex Ag 4x4) Bandage TOPICAL 06/09/21 23:59 PRN PRN Wound Care Silver Nitrate 1 each 03/09/21 13:35 Aquacel Ag Advantage Bandage (*Bkc) TOPICAL 06/09/21 23:59 PRN PRN Wound Care
--- NOTE | 2021-03-30 08:32 | PM.PNORT ---
Progress Note: A&P Assessment and Plan (1) Chronic osteomyelitis of foot: Code(s): M86.679 - Other chronic osteomyelitis, unspecified ankle and foot Status: Acute Assessment and Plan: 4.5 weeks status post left calcaneal osteomyelitis and peroneal tendon debridement. Mild depth to the wound with no signs of infection, no improvement in depth. 100% red/pink wound bed. Patient may benefit from graft application. Continue with silver rope and mupirocin gel in the interim. Daily dressing changes. Fracture boot for weight-bearing. Antibiotic suppression for 1 year. Patient has procedure scheduled for AV fistula for dialysis. Follow up in 1 week in the orthopedic clinic for evaluation with Dr. Alarcon. Then resume wound clinic evaluations and possible graft application. Subjective Subjective Date/Time Seen: 03/30/21 08:32 Interval history: 4 weeks, 5 days status post excision of osteo of the left foot, calcaneus and excision of abscess of the left ankle. Patient has been performing daily dressing changes at home with the assistance of home health and his family member. No new signs of infection at this time. Wound with slowed improvement in healing. Review of Systems Review of Systems: All systems reviewed & are unremarkable except as noted in HPI and below Exam Const: General: No confusion Orientation/consciousness: No confusion HENMT: Head: normal to inspection, normocephalic and atraumatic Eyes: Conjunctivae: conjunctivae normal Sclera: sclerae normal Neck: Neck: supple and nontender Chest: Chest palpation & inspection: normal inspection of the chest Resp: Effort & Inspection: normal respiratory effort and no audible wheezes Cardio: Rate: regular rate Rhythm: regular rhythm : General: Yes deferred Skin: General skin exam: no rashes or lesions noted Neuro: General: No confusion Extrem: General: capillary refill normal Right upper extremity: normal to inspection Left upper extremity: normal to inspection Right lower extremity: normal to inspection and hip/thigh Details: normal to inspection Left lower extremity: hip/thigh, knee, ankle (no calf tenderness) and foot Other: Incision on the lateral aspect of the ankle with wound dehiscence measuring 1.4x0.3x1.3cm, 100% red /pink wound bed. No purulence, no malodor. Posterior heel blister closed. No surrounding erythema. Swelling with improvement. Capillary refill in the toes and sensation intact to light touch. Negative Homans sign. Psych: Affect: normal affect Objective Data Meds/Results Medications: Active Medications Generic Name Dose Route Start Last Admin Trade Name Freq PRN Reason Stop Dose Admin Mupirocin 1 applic 03/16/21 08:34 Mupirocin 2% Oint 22 Gm Tube TOPICAL 06/16/21 23:59 PRN PRN Wound Care Silver 1 each 03/09/21 13:36 Silver Foam Band (Mepilex Ag 4x4) Bandage TOPICAL 06/09/21 23:59 PRN PRN Wound Care Silver Nitrate 1 each 03/09/21 13:35 Aquacel Ag Advantage Bandage (*Bkc) TOPICAL 06/09/21 23:59 PRN PRN Wound Care
--- NOTE | 2021-04-13 09:16 | P.PNOP_ITS ---
Progress Note: A&P Assessment and Plan (1) Chronic osteomyelitis of foot: Code(s): M86.679 - Other chronic osteomyelitis, unspecified ankle and foot Status: Acute Assessment and Plan: 6 weeks, 5 days status post left calcaneal osteomyelitis and peroneal tendon debridement. Marked improvement in depth and dimensions today. 100% red/pink wound bed. Wound measures 1.0x0.1x0.1cm. No indication for graft application today given improvement in wound bed. Continue silver gel, cover dry. Antibiotic suppression for 1 year. Follow up in 2 weeks in the [facility] wound clinic. Subjective Subjective Date/Time Seen: 04/13/21 09:16 Interval history: 6 weeks, 5 days status post excision of osteo of the left foot, calcaneus and excision of abscess of the left ankle. Patient has been performing daily dressing changes at home with the assistance of home health and his family member. No new signs of infection at this time. Wound with slowed improvement in healing. Review of Systems Review of Systems: All systems reviewed & are unremarkable except as noted in HPI and below Exam Const: General: No confusion Orientation/consciousness: No confusion HENMT: Head: normal to inspection, normocephalic and atraumatic Eyes: Conjunctivae: conjunctivae normal Sclera: sclerae normal Neck: Neck: supple and nontender Chest: Chest palpation & inspection: normal inspection of the chest Resp: Effort & Inspection: normal respiratory effort and no audible wheezes Cardio: Rate: regular rate Rhythm: regular rhythm : General: Yes deferred Skin: General skin exam: no rashes or lesions noted Neuro: General: No confusion Extrem: General: capillary refill normal Right upper extremity: normal to inspection Left upper extremity: normal to inspection Right lower extremity: normal to inspection and hip/thigh Details: normal to inspection Left lower extremity: hip/thigh, knee, ankle (no calf tenderness) and foot Other: Incision on the lateral aspect of the ankle with wound dehiscence measuring 1.0x0.1x0.1 cm, 100% red /pink wound bed. No purulence, no malodor. Posterior heel blister closed. No surrounding erythema. Swelling with improvement. Capillary refill in the toes and sensation intact to light touch. Negative Homans sign. Psych: Affect: normal affect Objective Data Meds/Results Medications: Active Medications Generic Name Dose Route Start Last Admin Trade Name Freq PRN Reason Stop Dose Admin Mupirocin 1 applic 03/16/21 08:34 Mupirocin 2% Oint 22 Gm Tube TOPICAL 06/16/21 23:59 PRN PRN Wound Care Silver 1 each 03/09/21 13:36 Silver Foam Band (Mepilex Ag 4x4) Bandage TOPICAL 06/09/21 23:59 PRN PRN Wound Care Silver Nitrate 1 each 03/09/21 13:35 Aquacel Ag Advantage Bandage (*Bkc) TOPICAL 06/09/21 23:59 PRN PRN Wound Care
--- NOTE | 2021-04-27 09:07 | PM.PNORT ---
Progress Note: A&P Assessment and Plan (1) Chronic osteomyelitis of foot: Code(s): M86.679 - Other chronic osteomyelitis, unspecified ankle and foot Status: Acute Assessment and Plan: 8 weeks, 5 days status post left calcaneal osteomyelitis and peroneal tendon debridement. Wound on the lateral aspect of the ankle now 100% healed. No open areas. Hindfoot distal incision with healed/dried blood blister. Scab removed, no underlying ulcer. Patient would benefit from custom orthotics/depth shoes. Limitations with dorsiflexion s/p surgery and immobilization due to wound. Recommended foot/ankle stretching exercises. Handout dispensed today. Would benefit from calf/achilles tendon stretching. Follow up in outpatient ortho clinic for repeat radiographs in 2 months. Will evaluate custom orthotics at that visit. Outpatient ortho clinic to call patient with appt. Reviewed importance of daily foot checks. Follow up as scheduled. (2) Type 2 diabetes mellitus: Qualifiers: Diabetes mellitus shelter insulin use: without shelter use Diabetes mellitus complication status: with neurologic complications Diabetes mellitus complication detail: with polyneuropathy Qualified Code(s): E11.42 - Type 2 diabetes mellitus with diabetic polyneuropathy Code(s): E11.9 - Type 2 diabetes mellitus without complications Status: Chronic Assessment and Plan: Patient requires custom fabricated orthosis. The patient is unable to be fit with a pre fabricated orthosis. Patient's condition is expected duration of greater than 1 year. Due to the patients orthopedic status with bone and soft tissue deformity, weakness, neurologic involvement custom fabricating is necessary to prevent tissue injury. The patient requires a custom orthosis for the above condition. Subjective Subjective Date/Time Seen: 04/27/21 09:07 8 weeks, 5 days status post excision of osteo of the left foot, calcaneus and excision of abscess of the left ankle. Patient has been performing daily dressing changes independently. No new signs of infection at this time. Some concern about a blood blister. Review of Systems Review of Systems: All systems reviewed & are unremarkable except as noted in HPI and below Exam Const: General: No confusion Orientation/consciousness: No confusion HENMT: Head: normal to inspection, normocephalic and atraumatic Eyes: Conjunctivae: conjunctivae normal Sclera: sclerae normal Neck: Neck: supple and nontender Chest: Chest palpation & inspection: normal inspection of the chest Resp: Effort & Inspection: normal respiratory effort and no audible wheezes Cardio: Rate: regular rate Rhythm: regular rhythm : General: Yes deferred Skin: General skin exam: no rashes or lesions noted Neuro: General: No confusion Extrem: General: capillary refill normal Right upper extremity: normal to inspection Left upper extremity: normal to inspection Right lower extremity: normal to inspection and hip/thigh Details: normal to inspection Left lower extremity: hip/thigh, knee, ankle (no calf tenderness) and foot Other: Incision on the lateral aspect of the ankle with previous noted wound dehiscence now completely closed. Small dried blood blister on the distal aspect of the hindfoot incision. No open wounds underlying scab. No purulence, no malodor. No surrounding erythema. No signigicant swelling. Capillary refill in the toes and sensation intact to light touch. Negative Homans sign. Psych: Affect: normal affect Objective Data Meds/Results Medications: Active Medications Generic Name Dose Route Start Last Admin Trade Name Freq PRN Reason Stop Dose Admin Mupirocin 1 applic 03/16/21 08:34 Mupirocin 2% Oint 22 Gm Tube TOPICAL 06/16/21 23:59 PRN PRN Wound Care Silver 1 each 03/09/21 13:36 Silver Foam Band (Mepilex Ag 4x4) Bandage TOPICAL 06/09/21 23:59 PRN PRN Wound Care Silver Nitrate 1 ea
== END 2021-05-24 09:05 | disposition home or self-care (01) ==
LOC: ANHWOC 07:38
PROVIDERS: PCP Internal Medicine; Visit Provider Orthopaedic Surgery
DX: M86.9 Osteomyelitis, unspecified (principal); M86.172 Other acute osteomyelitis, left ankle and foot; M65.072 Abscess of tendon sheath, left ankle and foot
CPT/HCPCS: 99212; A9270; G0463

== ENCOUNTER → 2021-10-08 00:57 | Outpatient (CLI) | payer MEDICARE, SELFPAY ==
[2021-10-08 12:38] LABS: Influenza Control Positive
[2021-10-08 19:18] LABS: SARS-CoV-2 RNA PCR Negative
== END ==
PROVIDERS: PCP Internal Medicine; Visit Provider Internal Medicine
DX: R68.89 Other general symptoms and signs (principal); Z20.822 Contact with and (suspected) exposure to COVID-19
CPT/HCPCS: 87804; C9803; U0003; U0005

== ENCOUNTER → 2021-11-27 00:03 | Outpatient (CLI) | payer MEDICARE, SELFPAY ==
[2021-11-27 16:46] LABS: SARS-CoV-2 RNA PCR Negative
== END ==
PROVIDERS: PCP Internal Medicine
DX: Z01.812 Encounter for preprocedural laboratory examination (principal); Z20.822 Contact with and (suspected) exposure to COVID-19
CPT/HCPCS: C9803; U0003; U0005

== ENCOUNTER 2022-05-05 08:00 | Outpatient (RCR) | payer MEDICARE, SELFPAY ==
--- NOTE | 2022-03-17 09:07 | PTOPEVAL ---
PHYSICAL THERAPY INITIAL EVALUATION. Thank you for referring Chuckie Hickey to [facility].? The patient is scheduled to be seen for therapy? 1x/week for 4 weeks. Please review, sign, date and return this plan of care GUANACO. I agree with and certify that the following plan of care is medically necessary. Referring Physician Date Attending Provider: Beau Goodwin DO *PT Outpatient Evaluation Start: 03/17/22 Evaluation Information Diagnosis R arm pain Onset ~1 month ago Subjective Information Pt states his right arm hurts, Query Text:As Reported By Patient/ and points to his forearm. He Family states it only really bother him when he is lifting some, even something light like a glass of water, or pushing something. He does not have any pain at rest. Prior Level of Function Hand Dominance Right Pain Assessment Right Arm(s) Reported Pain Level 0 Pain Description Aching,Tightness Lowest Pain Intensity 0 Greatest Pain Intensity 7 Pain Aggravating Factors Lifting Upper Extremity Range of Motion Gross Upper Extremity Range of Motion shoulder and elbow ROM grossly equal wrist flexion with elbow bent equal eusebio radial and ulnar deviation equal eusebio passive stretch with wrist extension (elbow flexed and extended reproduced symptoms) Upper Extremity Muscle Strength Testing Gross Upper Extremity Strength Comments Eusebio shoulder flexion and abduction grossly 4+/5 eusebio elbow flexion/extension 4+/5 resisted wrist extension, radial deviation reproduced symptoms L hand senior data developer strength: 55lb, 57lb, 55lb R hand senior data developer strength: 75lb, 68lb, 75lb Palpation Assessment Palpation tender along the extensor carpi radialis muscle belly. No tenderness noted at the medial or lateral epicondyle Special Tests-Upper Extremity Petrona's Negative Left,Positive Right PT Clinical Summary Chuckie is a 76 y/o male who presents to therapy today for his initial evaluation with a diagnosis of R arm pain. Today he reports tenderness to palpation along t
--- NOTE | 2022-03-28 08:49 | PTOPEVAL ---
PHYSICAL THERAPY EVALUATION AND UPDATED PLAN OF CARE 03-28-22 Thank you for referring Chuckie Hickey to [facility] for the diagnosis of dizziness, gait and balance abnormality. Chuckie is currently being treated for R forearm pain, so vestibular goals are added to his plan of care/treatment. He is scheduled to be seen for vestibular therapy? 0-1 x/week for 5 weeks. Please review, sign, date and return this plan of care GUANACO. I agree with and certify that the following plan of care is medically necessary. 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; does not use an assistive device for gait; Pain Assessment Pain Score Pain Score 0: Self Report Additional Pain Score Comments reports NO neck pain or headaches Cervical ROM Comments sitting active ROM of neck WNL and without pain reported Vestibular Evaluation Past Vestibular History Sinus/Allergy Issues,Visual Issues Medical History Comments wear reading glasses- eye exam last week, feels like eyes are fluttering; almost recovered from bad sinus bout, 95% gone --took over the counter meds, did not go to dr ; Other Symptoms Comments head feels funny, like lightheaded, vision--eyes fluttering, Recurrence and Prior Episodes of Vertigo about 5 yr ago, came in for therapy for dizziness, do not recall what therapy did; Hearing Changes None Symptoms Increase Bend Forward,Look Up,Quick Head Turns Symptoms Changes Comments nothing do makes it goes away, just fades away Types of Symptoms Imbalanced/Unsteady,Spinning Type of Symptoms Comments
--- NOTE | 2022-04-14 09:26 | PTOPEVAL ---
PHYSICAL THERAPY PROGRESS REPORT AND DISCHARGE SUMMARY. Thank you for referring Chuckie Hickey to [facility].? The patient is do to be discharged from skilled therapy services to treat his R arm pain. Please review, sign, date and return this plan of care GUANACO. I agree with and certify that the following plan of care is medically necessary. Referring Physician Date Attending Provider: Beau Goodwin DO Evaluation Information Diagnosis R arm pain Onset 1 months Subjective Information Pt states his arm has been Query Text:As Reported By Patient/ doing really good. He states Family he can still aggravate it but it takes quiet a bit to do that. He reports it is stronger and has more durability than before. He states everyday life is no problem at all . He reports no pain when carrying in groceries Pain Assessment Self Report Pain Assessment Right Arm(s) Reported Pain Level 0 Greatest Pain Intensity 3 Upper Extremity Range of Motion Gross Upper Extremity Range of Motion shoulder and elbow ROM grossly Comments equal wrist flexion with elbow bent equal eusebio radial and ulnar deviation equal eusebio passive stretch with wrist extension (elbow flexed reports feels the same at LUE, and elbow elxtended reports mild increase in stretch ) Upper Extremity Muscle Strength Testing Gross Upper Extremity Strength Comments Eusebio shoulder flexion and abduction grossly 4+/5 eusebio elbow flexion/extension 4+ /5 resisted wrist extension, radial deviation no longer provoke symptoms Palpation Assessment Palpation No tenderness noted at the medial or lateral epicondyle. Cord like muscle belly still palpabable on dorsal surface of proximal forearm Safety Assessment Factors Affecting Safety No Concerns Manual Therapy Treatment Comments IASTM/STM/TPR to extensor carpi radialis PT Clinical Summary Chuckie presents to therapy today for a progress report following 3 visits of skilled therapy to address his R elbow
--- NOTE | 2022-05-05 08:37 | PTOPEVAL ---
PHYSICAL THERAPY DISCHARGE REPORT 05-05-22 Refer to the clinical summary below, for his status today, compared to the initial evaluation. He will be discharged at this time. Thank you for referring Chuckie Hickey to [facility].? Please review, sign, date and return this Discharge Report GUANACO. I agree with and certify that the following plan of care is medically necessary. Referring Physician Date Attending Provider: Damien Gomez APN Subjective Information Chuckie reports: doing better, Query Text:As Reported By Patient/ almost back to normal; feels a Family little funny in head and lose balance with moving head quickly and turn fast and bend forward; try to be more careful and move slower; been keeping an eye on BP and sugar levels; have been golfing, yard work- back to all usual things; ready for discharge from therapy. Pain Assessment Self Report Self Report Pain Level 0 Pain Score Pain Score 0: Self Report Vestibular Testing Vestibular Testing Comments - standing looking up 2x- microsec of dizzy with catching up - standing 360' turn 1x to R/ L- slight eyes have to catch up -pick an item up off the floor no issues, did slowly - walk 50' with head turn to R /L slight loss of balance, up/ down- no issues: 3x each- no dizziness - eye tracking: head and eyes R/L x 10 reps- report slight lag behind with eyes catching up to head - Dizziness handicap self assessment score of 20/100 education: reinforced move slowly, monitor BP, blood sugar, stay hydrated and good nutrition; keep wide base of support and not flip head up quickly with picking up item off ground PT Clinical Summary Chuckie has progressed well with vestibular therapy and improved, compared to initial eval: Dizziness Handicap
== END 2022-05-05 14:40 | disposition home or self-care (01) ==
LOC: ANHPT 08:00
PROVIDERS: PCP Internal Medicine; Visit Provider Internal Medicine
DX: M79.601 Pain in right arm (principal)
CPT/HCPCS: 97110; 97140; 97161; 97530

== ENCOUNTER 2022-12-01 03:34 | Emergency (ER) | payer MEDICARE, SELFPAY ==
[2022-12-01] VITALS (11 sets, daily range): BP systolic 125–146; BP diastolic 55–75; PULSE 61–72; RESP 13–19; TEMP 36.2–36.6; O2SAT 95–99
--- NOTE | ~2022-12-01 | XR_ITS ---
EXAMINATION: XR chest 2V DATE: 12/01/2022 04:54 INDICATION: Chest pain. TECHNIQUE: Frontal and lateral views of the chest were obtained. COMPARISON: Chest single view 03/01/2021, CT abdomen and pelvis 08/06/2019 FINDINGS: There is mild atelectasis at the lung bases. No pleural effusion or pneumothorax. The heart size is normal. Surgical clips in the right upper quadrant are likely from cholecystectomy. IMPRESSION: 1. Mild atelectasis at the lung bases. Reviewed, dictated and finalized at location A. [employer] MA[employer]
--- NOTE | 2022-12-01 04:09 | ECG_ITS ---
Measurements Intervals [place] Rate: 64 P: 44 RI: 173 QRS: -11 QRSD: 105 T: 66 QT: 406 QTc: 421 Interpretive Statements SINUS RHYTHM COMPARED TO ECG 07/07/2019 12:05:31 SINUS RHYTHM NOW PRESENT Electronically Signed On 12-01-2022 14:53:49 ASSORTER by Kary Orellana M.D.
[2022-12-01 04:36] LABS: Basophils Percent Auto 0.4 % (0.2-1.2); Eosinophils Absolute Auto 0.2 K/mm3 (0-0.3); Eosinophils Percent Auto 2.9 % (0-4.4); Hemoglobin 12.8 g/dL (14.0-18.0); Immature Granulocyte Absolute 0.03 K/mm3 (0.00-0.031); Immature Granulocyte Percent A 0.4 % (0-0.5); Lymphocytes Absolute Auto 1.93 K/mm3 (0.9-3.2); Lymphocytes Percent Auto 25.3 % (18.3-44.2); Mean Corpuscular HGB Conc 32.8 g/dl (32-36); Mean Corpuscular Hemoglobin 30.8 pg (26-34); Mean Corpuscular Volume 93.8 fl (80-100); Monocytes Absolute Auto 0.8 K/mm3 (0.1-0.6); Monocytes Percent Auto 10.7 % (2.6-8.5); Neutrophils Absolute Auto 4.6 K/mm3 (1.3-6.7); Neutrophils Percent Auto 60.3 % (45.5-73.1); Platelet Count Result 168 k/mm3 (150-375); Red Blood Count 4.16 M/mm3 (4.6-6.20); Red Cell Distribution Width 14.4 % (11.5-14.5); White Blood Count 7.6 K/mm3 (4.5-10.0)
[2022-12-01 04:48] LABS: Alanine Aminotransferase 23 U/L (6-50); Albumin Level 4.3 g/dL (3.5-5.1); Alkaline Phosphatase 87 U/L (38-126); Anion Gap 9 mmol/L (8-16); Aspartate Amino Transferase 28 U/L (17-59); Bilirubin,Total 0.7 mg/dL (0.2-1.3); Blood Urea Nitrogen 45 mg/dL (9-20); Calcium 8.6 mg/dL (8.4-10.2); Carbon Dioxide 21 mmol/L (22-30); Chloride 107 mmol/L (98-107); Estimated CRCL calculation 17 ml/min; Estimated Glomerular Filt Rate 16; Glucose 116 mg/dL (65-110); Lipase 143 U/L (23-300); Potassium 4.2 mmol/L (3.4-5.0); Sodium 137 mmol/L (137-145)
[2022-12-01 04:59] LABS: Troponin I < 0.012 ng/mL (0.000-0.034)
--- NOTE | 2022-12-01 07:28 | PC.NURSE ---
Report given to JELANI Rodriguez.
[2022-12-01 07:45] LABS: Prothrombin Time 13.1 Seconds (11.1-14.7)
[2022-12-01] MEDS: ASPIRIN 81 MG CHEWABLE TABLET 324 MG PO (07:47)
[2022-12-01 07:48] LABS: Partial Thromboplastin Time 25.8 SECONDS (22.3-36.8)
[2022-12-01 08:07] LABS: Troponin I < 0.012 ng/mL (0.000-0.034)
--- NOTE | 2022-12-01 08:22 | ED.GENADULT ---
HPI - General Adult General Chief complaint: Chest Pain Stated complaint: chest pain Time Seen by Provider: 12/01/22 07:04 History of Present Illness HPI narrative: 77-year-old male presented to the emergency department for evaluation of some chest pressure that started approximately 8 PM last night. Patient states he was sitting at his computer when he had onset of a chest pressure. Patient denied any intense chest pain. Patient denied any pain that radiated to his arms neck or back. Patient did have an MN 4 years ago and states this did not feel similar to that. Patient had no associated nausea vomiting or diaphoresis. Patient did take some aspirin and took a nap and states when he woke up the pain was improved but was still present. Because the symptoms were still present patient presented to the emergency department for evaluation. Patient states that the symptoms did persist until approximately 6 AM this morning but have now since resolved. Patient denies any current chest pain or shortness of breath. Patient does follow-up with Dr. Harvey for cardiology and states it is a few years since his last stress test. Patient has history of chronic kidney disease and does follow-up with Dr. Silva and recently had a follow-up with him. Patient states his last GFR was [address] Silva's office. Related Data Home Medications Medication Instructions Recorded Confirmed adalimumab 40 mg/0.8 mL 40 mg subcut [id number] 09/03/19 11/30/22 subcutaneous syringe kit (Humira) aspirin 81 mg tablet,delayed 81 mg PO DAILY 09/03/19 11/30/22 release (Adult Low Dose Aspirin) atorvastatin 40 mg tablet 40 mg PO DAILY 09/03/19 11/30/22 azathioprine 75 mg tablet 75 mg PO DAILY 09/03/19 11/30/22 carvedilol 12.5 mg tablet 12.5 mg PO Q12H 09/03/19 11/30/22 multivitamin (Daily Multi-Vitamin 1 tablet PO DAILY 09/03/19 11/30/22 tablet) vit C 50 mg-E 15 unit-zinc cit 4.5 1 tablet PO DAILY 10/18/19 11/30/22 mg-lutein 2.5 mg-zeaxan chew tablet ([facility]) cholecalciferol (vitamin D3) 50 2,000 unit PO DAILY 02/24/21 11/30/22 mcg (2,000 unit) capsule (Vitamin D3) valacyclovir 500 mg tablet 500 mg PO .prn 05/24/22 11/30/22 Allergies Allergy/AdvReac Type Severity Reaction Status Date / Time No Known Allergies Allergy Verified 11/30/22 08:39 Review of Systems Review of Systems: CONSTITUTIONAL: Denies fever, chills, or sweats. EYES: Denies visual changes, redness, or discharge. ENT: Denies rhinorrhea, congestion, sore throat, or otalgia. CARDIOVASCULAR: See HPI RESPIRATORY: Denies cough or dyspnea. GASTROINTESTINAL: Denies abdominal pain, nausea, vomiting, or diarrhea. GENITOURINARY: Denies dysuria or hematuria. SKIN: Denies rash or itching. MUSCULOSKELETAL: Denies back pain, joint pain, or myalgia. NEUROLOGIC: Denies headache, numbness, or weakness. [facility] Past Medical History Medical History Acute osteomyelitis of left calcaneus CKD (chronic kidney disease) stage IV Crohn's disease Fever blister History of heart attack Hyperlipidemia Hypertension Peroneal tendinitis of left lower leg Recurrent cold sores Skin cancer Skin lesion Uncontrolled type 2 diabetes mellitus with hyperglycemia Surgical History Surgical History History of coronary artery stent placement 2016 History of foot surgery Left calcaneus fracture reattached, Dr. Alarcon History of hemicolectomy due to Crohn's Hx of cataract extraction Family History Family History Mother Patient's mother is Family history of cardiovascular disease Family history of heart disease in male family member before age 55 Father Patient's father is Family history of heart disease in male family member before age 55 Sibling Family history of malignant
== END 2022-12-01 09:06 | disposition home or self-care (01) ==
PROVIDERS: Emergency Medicine; Emergency Provider Emergency Medicine; PCP Internal Medicine
DX: R07.89 Other chest pain (principal); I12.9 Hypertensive chronic kidney disease with stage 1 through stage 4 chronic kidney disease, or unspecified chronic kidney disease; E11.22 Type 2 diabetes mellitus with diabetic chronic kidney disease; N18.4 Chronic kidney disease, stage 4 (severe); I25.2 Old myocardial infarction; E78.5 Hyperlipidemia, unspecified; K50.90 Crohn's disease, unspecified, without complications; Z85.828 Personal history of other malignant neoplasm of skin; Z95.5 Presence of coronary angioplasty implant and graft; Z90.49 Acquired absence of other specified parts of digestive tract; Z98.49 Cataract extraction status, unspecified eye; Z79.82 Long term (current) use of aspirin
CPT/HCPCS: 36415; 71046; 80053; 83690; 84484; 85025; 85610; 85730; 93005; 99284; A9270

== ENCOUNTER 2023-04-21 07:45 | Outpatient (CLI) | payer MEDICARE, SELFPAY ==
--- NOTE | 2023-04-24 17:06 | WPDSLEEPSTUD ---
Sleep Study Date of Study: 04/20/23 Ordering Provider: SMITH Craft Interpreting Physician: Danelle Mccall DO Sleep Study Type: Split Polysomnogram Height: 1.73 m Weight: 96.162 kg Body Mass Index: 32.2 Neck Circumference (inches): 17 [place]: 13 Reason for Sleep Study Daytime hypersomnia Sleep History The patient is a 77-year-old male with hypertension, diabetes, coronary artery disease with stent, stage 4 chronic kidney disease, Crohn's disease, hyperlipidemia and history of myocardial infarction that had a sleep study ordered by the pulmonary group for evaluation of sleep apnea. The patient denies awakening from sleep short of breath. He denies awakening at night with heartburn, belching or cough. He rarely has trouble sleeping when he has a cold. He denies waking up gasping for air throughout the night. He constantly has breathing problems at night observed by himself or others. He denies sweating excessively at night. He denies having heart palpitations or irregular heartbeats during the night. He occasionally falls asleep during the day but never while driving. He denies sleep paralysis, cataplexy and hypnagogic / hypnopompic hallucinations. He denies having trouble at school or work due to sleepiness. He denies feeling afraid of going to sleep. He denies having nightmares. He occasionally remembers his dreams. He rarely has thoughts racing through his mind. He denies feeling sad, depressed or anxious. He denies having muscular tension. He denies noticing parts of his body jerk. He denies kicking during the night. He denies having crawling and aching feelings in his legs and denies having leg pain during the night. He rarely grinds his teeth during sleep and never awakens with morning jaw pain. He denies being bothered by pain during the day and denies being awakened by pain during the night. He rarely wakes up feeling stiff in the morning. He denies waking up with sore or achy muscles. He denies waking up with pain in the neck, spine and other joints. The patient goes to bed at 10:00 p.m. on both weekdays and weekends. He can fall asleep within 5 minutes. He wakes up 4 times throughout the night to urinate and is able fall back asleep within 5 minutes. He wakes up between 6-7 a.m. on both weekdays and weekends. He typically gets 8 hours of sleep per night. He will stay in bed for 5 minutes after waking up in the morning. He currently lives alone. He will consume caffeinated beverages within 2 hours of bedtime. He denies engaging in physical exercise before bedtime. He will watch television before falling asleep. He denies taking naps in the afternoon or the evening. He consumes 5 glasses of caffeinated beverage per day. He denies tobacco, alcohol and recreational drug use. [facility] Past Medical History Medical History Acute osteomyelitis of left calcaneus CKD (chronic kidney disease) stage IV Crohn's disease Fever blister Heart attack History of heart attack Hyperlipidemia Hypertension Peroneal tendinitis of left lower leg Recurrent cold sores Skin cancer Skin lesion Uncontrolled type 2 diabetes mellitus with hyperglycemia Surgical History Surgical History History of coronary artery stent placement 2016 History of foot surgery Left calcaneus fracture reattached, Dr. Alarcon History of hemicolectomy due to Crohn's Hx of cataract extraction Family History Family History Mother Patient's mother is Family history of cardiovascular disease Family history of heart disease in male family member before age 55 Father Patient's father is Family history of heart disease in male family member before age 55 Sibling Family history of malignant neoplasm Svitlana
[2023-04-24 17:21] VITALS: BMI 32.2
== END 2023-04-21 07:53 | disposition home or self-care (01) ==
LOC: ANHCSM 07:47
PROVIDERS: PCP Internal Medicine; Visit Provider Physician Assistant
DX: G47.10 Hypersomnia, unspecified (principal); G47.33 Obstructive sleep apnea (adult) (pediatric)
CPT/HCPCS: 95810; 95811; 99199

== ENCOUNTER 2023-05-12 08:16 | Outpatient (CLI) | payer MEDICARE, SELFPAY ==
--- NOTE | ~2023-05-12 | CT_ITS ---
EXAMINATION: CT sinus wo con DATE: 05/12/2023 08:32 INDICATION: Chronic sinusitis TECHNIQUE: Computed tomography (CT) of the paranasal sinuses was performed without contrast. Iterativ e reconstruction technique was employed. Exam dose: 279.81 mGy-cm total exam DLP. COMPARISON: November 27, 2019 CT sinuses FINDINGS: There is rightward deviation of the nasal septum. There is moderately prominent soft tissue swelling of the nasal turbinates. The ostiomeatal units are patent. There is localized mild mucoperiosteal thickening at the floor of the left maxillary sinus. There is an isolated left ethmoid air cell which is largely opacified. The paranasal sinuses and mastoid air c ells are otherwise normally developed and aerated. IMPRESSION: Minimal focal soft tissue thickening at the floor of the left axillary sinus and partial ly opacified left ethmoid air cell; otherwise normal paranasal sinuses and mastoid air cells Regular deviation of nasal septum Prominent cysts of the nasal turbinates Patent ostiomeatal units Reviewed, dictated and finalized at Location [facility]. Reviewed, dictated and finalized at location B. IMPRESSION: Minimal focal soft tissue thickening at the floor of the left axil debbie sinus and partially opacified left ethmoid air cell; otherwise normal para nasal sinuses and mastoid air cells Regular deviation of nasal septum Prominent cysts of the nasal turbinates Patent ostiomeatal units
== END 2023-05-12 08:17 | disposition home or self-care (01) ==
LOC: ANHIMG 08:19
PROVIDERS: PCP Internal Medicine; Visit Provider Otolaryngology
DX: J32.9 Chronic sinusitis, unspecified (principal); J34.2 Deviated nasal septum
CPT/HCPCS: 70486

== ENCOUNTER 2023-06-17 05:55 | Emergency (ER) | payer MEDICARE, SELFPAY ==
--- NOTE | ~2023-06-17 | XR_ITS ---
EXAMINATION: XR ankle LT min 3V DATE: 06/17/2023 08:07 INDICATION: Left ankle pain and swelling TECHNIQUE: Anteroposterior, lateral, mortise, and additional oblique view of the ankle were obtained. COMPARISON: 03/23/2022 FINDINGS: Bone alignment is normal. There is no ankle fracture. There is chronic deformity of the marisol caneus, consistent with surgical change. The soft tissues are unremarkable. IMPRESSION: 1. No acute osseous abnormality. Reviewed, dictated and finalized at location A.
--- NOTE | ~2023-06-17 | XR_ITS ---
EXAMINATION: XR foot LT min 3V DATE: 06/17/2023 08:06 INDICATION: Left foot pain and swelling TECHNIQUE: Dorsoplantar, lateral, and 2 oblique views of the left foot were obtained. COMPARISON: 03/23/2022 FINDINGS: Bone alignment is normal. There is no acute fracture. There is chronic deformity of the marisol caneus, consistent with surgical change. The soft tissues are unremarkable. IMPRESSION: 1. No acute osseous abnormality. Reviewed, dictated and finalized at location A.
--- NOTE | ~2023-06-17 | CT_ITS ---
EXAMINATION: CT foot LT wo con DATE: 06/17/2023 11:16 INDICATION: Left foot pain and swelling TECHNIQUE: Computed tomography (CT) of the left foot was performed without intravenous contrast. The dose-length product (DLP) was 440.55 mGy-cm. Automated exposure control and iterative reconstruction technique were employed. COMPARISON: None FINDINGS: No fractures identified. There are chronic changes in the calcaneus related to prior treatm ent for osteomyelitis. There is mild osteoarthritis of multiple interphalangeal joints. There is mild lateral soft tissue swelling near the lateral malleolus. IMPRESSION: 1. Mild lateral ankle soft tissue swelling without acute osseous abnormality identified. Reviewed, dictated and finalized at location A. IMPRESSION: 1. Mild lateral ankle soft tissue swelling without acute osseous abnormality id entified.
[2023-06-17 06:00] VITALS: BP 145/64; PULSE 87; RESP 14; TEMP 36.7; O2SAT 96
[2023-06-17 07:15] VITALS: BP 144/61; PULSE 68; RESP 16; TEMP 36.6; O2SAT 98
--- NOTE | 2023-06-17 08:05 | ED.LOWEXIN ---
HPI - Extremity Injury (Lower) General Chief Complaint: Extremity Injury, Lower Stated Complaint: L foot pain Time Seen by Provider: 06/17/23 07:15 History of Present Illness HPI Narrative: Patient is an 78-year-old male who presents ER with pain to the left foot. Began 4 days ago. Started lateral aspect of the foot inferior to the lateral malleolus over a surgical scar. Since then he has developed radiating pain towards his toes and around the backside of his heel. He feels some tingling. No redness or swelling or heat. Patient has history of previous staph infection to the hardware of the foot that was surgically removed 2 years ago. He contacted Dr. Alarcon's office yesterday, they scheduled him for an appointment that is 3 days away. They told him to come to the ER if he had any additional concerns. Reports the symptoms persist so he came to the ER. Patient does have history of gout. Denies any trauma. No fevers or chills or sweats. No breakdown of the skin. Related Data Home Medications Medication Instructions Recorded Confirmed adalimumab 40 mg/0.8 mL 40 mg subcut [id number] 09/03/19 06/05/23 subcutaneous syringe kit (Humira) aspirin 81 mg tablet,delayed 81 mg PO DAILY 09/03/19 06/05/23 release (Adult Low Dose Aspirin) atorvastatin 40 mg tablet 40 mg PO DAILY 09/03/19 06/05/23 azathioprine 75 mg tablet 75 mg PO DAILY 09/03/19 06/05/23 carvedilol 12.5 mg tablet 12.5 mg PO Q12H 09/03/19 06/05/23 multivitamin (Daily Multi-Vitamin 1 tablet PO DAILY 09/03/19 06/05/23 tablet) vit C 50 mg-E 15 unit-zinc cit 4.5 1 tablet PO DAILY 10/18/19 06/05/23 mg-lutein 2.5 mg-zeaxan chew tablet ([facility]) cholecalciferol (vitamin D3) 50 2,000 unit PO DAILY 02/24/21 06/05/23 mcg (2,000 unit) capsule (Vitamin D3) valacyclovir 500 mg tablet 500 mg PO .prn 05/24/22 06/05/23 sodium bicarbonate 650 mg tablet 650 mg PO TID 06/05/23 06/05/23 tamsulosin 0.4 mg capsule 0.4 mg PO DAILY 06/05/23 06/05/23 Allergies Allergy/AdvReac Type Severity Reaction Status Date / Time No Known Allergies Allergy Verified 06/05/23 08:22 Review of Systems Review of Systems: All systems reviewed & are unremarkable except as noted in HPI and below Constitutional: Constitutional: Denies chills, Denies fatigue and Denies fever(s) Cardiovascular: Cardiovascular: Reports no additional cardiovascular complaints Respiratory: Respiratory: Reports no additional respiratory complaints Gastrointestinal: Gastrointestinal: Reports no additional gastrointestinal complaints Musculoskeletal: Musculoskeletal: Reports arthralgias, Reports joint swelling and Denies muscle cramps Integumentary/Breasts: Skin/Breast: Denies pruritus, Denies rash and Denies skin ulcer Neurologic: Denies focal weakness and Denies numbness Comments: +Tingling left foot PMFSH Past Medical History Medical History Acute osteomyelitis of left calcaneus CKD (chronic kidney disease) stage IV Crohn's disease Fever blister Heart attack History of heart attack Hyperlipidemia Hypertension Peroneal tendinitis of left lower leg Recurrent cold sores Skin cancer Skin lesion Uncontrolled type 2 diabetes mellitus with hyperglycemia Surgical History Surgical History History of coronary artery stent placement 2016 History of foot surgery Left calcaneus fracture reattached, Dr. Alarcon History of hemicolectomy due to Crohn's Hx of cataract extraction Family History Family History Mother Patient's mother is Family history of cardiovascular disease Family history of heart disease in male family member before age 55 Father Patient's father is Family history of heart disease in male family member before age 55 Sibling Family history
[2023-06-17 08:43] LABS: Basophils Percent Auto 0.3 % (0.2-1.2); Eosinophils Absolute Auto 0.1 K/mm3 (0-0.3); Eosinophils Percent Auto 1.4 % (0-4.4); Hematocrit 38.2 % (42.0-52.0); Hemoglobin 12.2 g/dL (14.0-18.0); Immature Granulocyte Absolute 0.05 K/mm3 (0.00-0.031); Immature Granulocyte Percent A 0.5 % (0-0.5); Lymphocytes Absolute Auto 1.72 K/mm3 (0.9-3.2); Lymphocytes Percent Auto 16.9 % (18.3-44.2); Mean Corpuscular HGB Conc 31.9 g/dl (32-36); Mean Corpuscular Hemoglobin 31.3 pg (26-34); Mean Corpuscular Volume 97.9 fl (80-100); Monocytes Absolute Auto 1.1 K/mm3 (0.1-0.6); Monocytes Percent Auto 10.3 % (2.6-8.5); Neutrophils Absolute Auto 7.2 K/mm3 (1.3-6.7); Neutrophils Percent Auto 70.6 % (45.5-73.1); Platelet Count Result 165 k/mm3 (150-375); White Blood Count 10.2 K/mm3 (4.5-10.0)
[2023-06-17 08:53] LABS: Anion Gap 12 mmol/L (8-16); Blood Urea Nitrogen 59 mg/dL (9-20); Carbon Dioxide 18 mmol/L (22-30); Chloride 110 mmol/L (98-107); Estimated CRCL calculation 15 ml/min; Estimated Glomerular Filt Rate 14; Glucose 132 mg/dL (65-110); Potassium 4.6 mmol/L (3.4-5.0); Sodium 140 mmol/L (137-145)
[2023-06-17 08:54] LABS: CRP 1.2 mg/dL (<1.0)
[2023-06-17 08:59] LABS: Uric Acid 7.6 mg/dL (3.5-8.5)
[2023-06-17 10:39] LABS: Erythrocyte Sedimentation Rate 75 mm/hr (0-20)
[2023-06-17 13:19] VITALS: BP 90/60; PULSE 65; RESP 18; O2SAT 95
== END 2023-06-17 13:20 | disposition home or self-care (01) ==
PROVIDERS: Emergency Provider Emergency Medicine; PCP Nurse Practitioner Family
DX: L03.116 Cellulitis of left lower limb (principal); I12.9 Hypertensive chronic kidney disease with stage 1 through stage 4 chronic kidney disease, or unspecified chronic kidney disease; E11.22 Type 2 diabetes mellitus with diabetic chronic kidney disease; N18.4 Chronic kidney disease, stage 4 (severe); I25.2 Old myocardial infarction; E78.5 Hyperlipidemia, unspecified; K50.90 Crohn's disease, unspecified, without complications; Z95.5 Presence of coronary angioplasty implant and graft; Z85.828 Personal history of other malignant neoplasm of skin; Z90.49 Acquired absence of other specified parts of digestive tract; Z98.49 Cataract extraction status, unspecified eye
CPT/HCPCS: 36415; 73610; 73630; 73700; 80048; 84550; 85025; 85652; 86140; 99284

== ENCOUNTER 2023-06-29 08:44 | Outpatient (CLI) | payer MEDICARE, SELFPAY ==
[2023-06-29 10:09] LABS: Prothrombin Time 13.8 Seconds (11.1-14.7)
[2023-06-29 10:10] LABS: Partial Thromboplastin Time 26.3 SECONDS (22.3-36.8)
== END 2023-06-29 08:45 | disposition home or self-care (01) ==
LOC: ANHSURGERY 08:48
PROVIDERS: Anesthesiology; PCP Nurse Practitioner Family; Visit Provider Otolaryngology
DX: N18.9 Chronic kidney disease, unspecified (principal); Z01.818 Encounter for other preprocedural examination
CPT/HCPCS: 36415; 85610; 85730

== ENCOUNTER 2023-07-04 03:30 | Day surgery (SDC) | payer MEDICARE, SELFPAY ==
[2023-06-26 09:49] VITALS: BMI 32.7
--- NOTE | 2023-06-26 10:30 | PC.NURSE ---
PRE-OP INSTRUCTIONS, PLEASE READ CAREFULLY Report to the Outpatient Waiting Room, entrance under the green pavilion located off [facility], at time _1130_ on date _07/04/23_. Planned Procedure Time: _1:30 PM_. Time changes happen often and if your time is changed the preop area will call you the afternoon before. - You and your visitor will be asked to self-screen and do not enter if you have any COVID symptoms. - A mask is optional within the hospital at this time. Patients may have clear liquids (water, carbonated beverages, clear teas, apple juice) until 3 hours prior to surgery with a maximum of 20 ounces. - No food from midnight until time of surgery - Infants may have breast milk until 4 hours before surgery, infant formula 6 hours prior to surgery. - Children will be allowed to drink immediately following surgery. If applicable, please bring a bottle or sippy cup to assist with drinking. Juice, water, soda, and popsicles are readily available. For infants on formula, please bring formula the day of surgery. Pacifiers are allowed. Take the following medications with a SIP of water the morning of surgery: _CARVEDILOL__ DO NOT STOP ANY OF YOUR OTHER PRESCRIPTION MEDICATIONS PRIOR TO SURGERY ?EXCEPT THE FOLLOWING Medications to discontinue per DR. VALDEZ - _ASPIRIN - 7 DAYS PRIOR TO SURGERY (PER PT), Date to take last dose 06/26/23_ Medications to discontinue per ANESTHESIA - _MULTIVITAMIN, [facility] 3 DAYS PRIOR TO SURGERY, Date to take last dose 06/30/23_ Please no make-up, nail portuguese, hairspray, perfume, deodorant, or body powder the day of surgery. No jewelry (including any body piercings) or valuables the day of surgery, leave them at home. Please take a shower or bath the night before, or the morning of, surgery with an antibacterial soap. Wear comfortable, loose fitting clothing. Children are encouraged to wear pajamas. - Jewelry must be removed prior to entering the operating room. Rings and piercings that are not removed may be cut off. - The hospital will not accept responsibility for valuables. - Please leave all valuables, including medications, at home the day of surgery. If you are going home after surgery, a licensed charter and tour bus driver must drive you home. - NO public transportation without another adult if you receive anesthesia. - We recommend that an adult stay with you for 24 hours following discharge. - We also recommend that you do not drive, make important decision, drink alcoholic beverages, or take any drugs that were not prescribed by your health care provider for at least 24 hours after your discharge time. Follow any additional instructions given to you from your surgeon. If you or anyone in your household have experienced Covid symptoms in the past week, please notify your surgeon or the nurse liaison at the phone number below for possible testing. Telephone instructions given to _PATIENTS_and asked if any additional questions and then verbalized understanding. Patient advised to call surgeon office or pre surgery nurse liaison [phone] if any additional questions.
--- NOTE | 2023-07-03 15:46 | PM.IMHP ---
H&P: [facility] History of Present Illness Date/Time: 07/03/23 15:46 Chief Complaint: Chronic sinusitis septal deviation turbinate hypertrophy Narrative: planned procedure Review of Systems Review of Systems: All systems reviewed & are unremarkable except as noted in HPI and below [facility] Past Medical History Medical History (Updated 06/30/23 @ 09:46 by Judah Alarcon MD) Acute osteomyelitis of left calcaneus CKD (chronic kidney disease) stage IV Crohn's disease Fever blister Heart attack History of heart attack Hyperlipidemia Hypertension Left Achilles tendinitis Peroneal tendinitis of left lower leg Recurrent cold sores Skin cancer Skin lesion Uncontrolled type 2 diabetes mellitus with hyperglycemia Surgical History Surgical History History of coronary artery stent placement x1 2016 History of foot surgery Left calcaneus fracture reattached, Dr. Alarcon History of hemicolectomy due to Crohn's Hx of cataract extraction Family History Family History Mother Patient's mother is Family history of cardiovascular disease Family history of heart disease in male family member before age 55 Father Patient's father is Family history of heart disease in male family member before age 55 Sibling Family history of malignant neoplasm Patient's sister is Other Breast cancer Diabetes mellitus Heart disease High cholesterol Hypertension Social History Social History Social History: the patient is single and never . He has no children. He is a lifelong nonsmoker. He denies any alcohol marijuana or illicit drugs. He states that his sister is his durable power compliance attorney for healthcare. The patient desires to be a full code. He is retired from [employer]. He lives alone. Smoking status: Never smoker Second hand tobacco smoke exposure: No Alcohol intake: never Substance use: never Substance use type: does not use Lack of Transportation: No Lack of Food: Never True Current Housing: I Have Housing Concerned About Future Housing: No Difficulty Paying Gas/Electric Bills: No Difficulty Paying for Meds: No Currently Unemployed: No Education: Associate Degree Difficulty w/ Childcare or Family Care: No Living arrangements: alone Gender identity (if verbalized by the patient): Male Sexual Orientation (if Verbalized by the Patient): Straight or Heterosexual Spiritual care concerns: No Meds Home Medications and Allergies Home Medications Medication Instructions Recorded Confirmed Type adalimumab 40 mg/0.8 mL 40 mg subcut [id number] 09/03/19 06/30/23 History subcutaneous syringe kit (Humira) aspirin 81 mg tablet,delayed 81 mg PO DAILY 09/03/19 06/30/23 History release (Adult Low Dose Aspirin) atorvastatin 40 mg tablet 40 mg PO DAILY 09/03/19 06/30/23 History azathioprine 75 mg tablet 75 mg PO DAILY 09/03/19 06/30/23 History carvedilol 12.5 mg tablet 12.5 mg PO Q12H 09/03/19 06/30/23 History multivitamin (Daily Multi-Vitamin 1 tablet PO DAILY 09/03/19 06/30/23 History tablet) vit C 50 mg-E 15 unit-zinc cit 4.5 1 tablet PO DAILY 10/18/19 06/30/23 History mg-lutein 2.5 mg-zeaxan chew tablet ([facility]) cholecalciferol (vitamin D3) 50 2,000 unit PO DAILY 02/24/21 06/30/23 History mcg (2,000 unit) capsule (Vitamin D3) valacyclovir 500 mg tablet 500 mg PO .prn PRN FEVER BLISTERS 05/24/22 06/30/23 History doxazosin 2 mg tablet 2 mg PO QPM #90 tabs 04/03/23 06/30/23 Rx meclizine 25 mg tablet 25 mg PO TID PRN dizziness #30 tabs 06/05/23 06/30/23 Rx sodium bicarbonate 650 mg tablet 650 mg PO BID 06/05/23 06/30/23 History pioglitazone 15 mg tablet See Rx Instructions .Route 06/07/23 06/30/23 Rx .COMPLEX #90 tabs
[2023-07-04] VITALS (8 sets, daily range): BP systolic 126–185; BP diastolic 61–91; PULSE 64–87; RESP 12–20; TEMP 36.8–37.2; O2SAT 98–100; BMI 32.8
--- NOTE | 2023-07-04 07:22 | WPDHPUPDATE1 ---
History and Physical Update Update Date/Time: 07/04/23 07:22 History and Physical has been reviewed, including an updated exam of the patient. There are NO changes in the patient's condition. Risks, benefits, and alternatives have been discussed and questions answered. Patient agrees to proceed with procedure.
[2023-07-04 12:08] LABS: Glucose Point of Care 101 mg/dl (65-105)
[2023-07-04] MEDS: LACTATED RINGERS 1,000 ML 30 ML IV CONT (12:09)
[2023-07-04] MEDS: ACETAMINOPHEN 500 MG TABLET 1000 MG PO (12:10)
--- NOTE | 2023-07-04 13:00 | WPDHPUPDATE1 ---
History and Physical Update Update Date/Time: 07/04/23 13:00 Change in procedure. Patient now denies significant sinonasal symptoms. Procedure will only be septoplasty and turbinate reduction with outfracture bilaterally
[2023-07-04] MEDS: ceFAZolin 2 GM/D5W 50 ML 2 GM/50 ML BAG IVPB (13:04)
[2023-07-04] MEDS: OXYMETAZOLINE HCL 0.05% NAS 15 ML BTL (*BKC) 1 SPRAY NASAL (13:23)
[2023-07-04] MEDS: LIDO 1%/EPINEPHRINE 1:100,000 20 ML VIAL 5 ML INFILTRATE (13:23)
[2023-07-04 14:50] LABS: Glucose Point of Care 122 mg/dl (65-105)
--- NOTE | 2023-07-04 15:10 | P.OP_ITS ---
Procedure Note - Detailed Date of Procedure 07/04/23 Pre-op Diagnosis Deviation turbinate hypertrophy nasal obstruction Post-op Diagnosis Same Procedure Performed Endoscopic assisted septoplasty turbinate reduction with outfracture Surgeon Anuel Canseco MD Anesthesia General Indications See above Findings Severely deviated rightward nasal septum large turbinates well reduced minimal damage to the turbinates during scant bleeding Description of Procedure Patient identified consent verified preop. Patient brought operating room. Time-out performed. General anesthesia induced procedure confirmed 2nd time-out performed. Total of 13 cc 1% lidocaine 1 1000 parts epinephrine injecting bilateral nasal septum inferior turbinates. Shay incision made left side left nasal septal flap elevated small perforation right nasal septal flap elevated after crossing over the osteotome small perforation unfortunately they were opposing. Deviated septum [place] forceps Jarad forceps osteotome. Piece of cartilage placed between the perforations and quilted end. Shay incision closed interrupted 5 0 fast gut sutures anteriorly. Turbinates reduced the submucosal plane using microdebrider turbinate blade. They were then outfractured. The entry point was cauterized with Bovie suction electrocautery. The mulberry tips were also cauterized. Patient tolerated the procedure well. Blood loss about 15 cc. I performed all dictated portions procedure no complications. Cares occasions good pair the patient given back to Anesthesiology. Fabian splints were placed and sutured anteriorly using through mattress suture Estimated Blood Loss 15 Drains No Packing No Pathology None sent Complications No immediate complications Condition Stable Disposition PACU [facility] Billing Surgery - Charge Forward: Surgery Billing
[2023-07-04] MEDS: ONDANSETRON INJ 4 MG/2 ML VIAL IV PUSH (15:41)
== END 2023-07-04 16:45 | disposition home or self-care (01) ==
PROVIDERS: PCP Nurse Practitioner Family; Visit Provider Otolaryngology
PROC: (CPT 30520; principal; 2023-07-04 13:30)
PROC: (CPT 30520; 2023-07-04 13:30)
DX: J34.2 Deviated nasal septum (principal); J34.3 Hypertrophy of nasal turbinates; J34.89 Other specified disorders of nose and nasal sinuses; I12.9 Hypertensive chronic kidney disease with stage 1 through stage 4 chronic kidney disease, or unspecified chronic kidney disease; E11.22 Type 2 diabetes mellitus with diabetic chronic kidney disease; N18.4 Chronic kidney disease, stage 4 (severe); K50.90 Crohn's disease, unspecified, without complications; I25.2 Old myocardial infarction; E78.5 Hyperlipidemia, unspecified; Z95.5 Presence of coronary angioplasty implant and graft; Z90.49 Acquired absence of other specified parts of digestive tract; Z79.620 Long term (current) use of immunosuppressive biologic; Z79.84 Long term (current) use of oral hypoglycemic drugs; Z79.82 Long term (current) use of aspirin
CPT/HCPCS: 30520; 30140; 82948; A9270; J0330; J0690; J1100; J2405; J2704; J7120

== ENCOUNTER 2023-07-06 12:54 | Emergency (ER) | payer MEDICARE, SELFPAY ==
[2023-07-06 13:04] VITALS: BP 151/71; PULSE 83; RESP 20; TEMP 36.6; O2SAT 99
--- NOTE | 2023-07-06 13:39 | ED.GENADULT ---
HPI - General Adult General Chief complaint: Unspecified Stated complaint: Body Stiffness Time Seen by Provider: 07/06/23 13:25 Source: patient, RN notes reviewed and old records reviewed Mode of arrival: ambulatory Limitations: no limitations History of Present Illness HPI narrative: 78 year old male accompanied by family member who had surgery 2 days ago for sinuses by Dr Canseco. Patient reports that he noticed muscle weakness especially his lower extremities which he noticed that night when he got up to the bathroom. He states that his muscles feel weak and he has difficulty lifting his legs bilaterally and he has some soreness to his arms. Patient denies any shortness of breath or any surgical site pain. Patient has history of renal disease, CAD, diabetes and hypertension,Crohn disease. MD complaint: muscle soreness arms and legs and feeling of weakness to legs Onset (ago): day(s) (day 2) Location: left, right, upper extremity and lower extremity Treatments prior to arrival: none Related Data Home Medications Medication Instructions Recorded Confirmed adalimumab 40 mg/0.8 mL 40 mg subcut [id number] 09/03/19 07/06/23 subcutaneous syringe kit (Humira) aspirin 81 mg tablet,delayed 81 mg PO DAILY 09/03/19 07/06/23 release (Adult Low Dose Aspirin) atorvastatin 40 mg tablet 40 mg PO DAILY 09/03/19 07/06/23 azathioprine 75 mg tablet 75 mg PO DAILY 09/03/19 07/06/23 multivitamin (Daily Multi-Vitamin 1 tablet PO DAILY 09/03/19 07/06/23 tablet) vit C 50 mg-E 15 unit-zinc cit 4.5 1 tablet PO DAILY 10/18/19 07/06/23 mg-lutein 2.5 mg-zeaxan chew tablet ([facility]) cholecalciferol (vitamin D3) 50 2,000 unit PO DAILY 02/24/21 07/06/23 mcg (2,000 unit) capsule (Vitamin D3) valacyclovir 500 mg tablet 500 mg PO .prn PRN FEVER BLISTERS 05/24/22 07/06/23 azelastine 137 mcg (0.1 %) nasal 1 spray intranasal BID 07/06/23 07/06/23 spray aerosol carvedilol 3.125 mg tablet 3.125 mg PO BID 07/06/23 07/06/23 cefuroxime axetil 500 mg tablet 500 mg PO BID 07/06/23 07/06/23 hydralazine 10 mg tablet 10 mg PO Q12H 07/06/23 07/06/23 pioglitazone 15 mg tablet 15 mg PO DAILY 07/06/23 07/06/23 tamsulosin 0.4 mg capsule 0.4 mg PO DAILY 07/06/23 07/06/23 Allergies Allergy/AdvReac Type Severity Reaction Status Date / Time No Known Allergies Allergy Verified 07/06/23 13:18 Review of Systems Review of Systems: CONSTITUTIONAL: Denies fever, chills, or sweats. EYES: Denies visual changes, redness, or discharge. ENT: states some clear rhinorrhea, congestion,no sore throat, or otalgia. CARDIOVASCULAR: Denies chest pain, palpitations, or edema. RESPIRATORY: Denies cough or dyspnea. GASTROINTESTINAL: Denies abdominal pain, nausea, vomiting, or diarrhea. GENITOURINARY: Denies dysuria or hematuria. SKIN: Denies rash or itching. MUSCULOSKELETAL: Denies back pain, reports pain to arms and legs with feelings of weakness to legs NEUROLOGIC: Denies headache, numbness, positive for feeling of weakness to legs and difficulty with ambulation PSYCHIATRIC: Denies anxiety or depression. All systems reviewed & are unremarkable except as noted in HPI and below PMFSH Past Medical History Medical History Acute osteomyelitis of left calcaneus CKD (chronic kidney disease) stage IV Crohn's disease Fever blister Heart attack History of heart attack Hyperlipidemia Hypertension Left Achilles tendinitis Peroneal tendinitis of left lower leg Recurrent cold sores Skin cancer Skin lesion Uncontrolled type 2 diabetes mellitus with hyperglycemia Surgical History Surgical History History of coronary artery stent placement x1 2017 History of foot surgery Left calcaneus fracture reattached, Dr. Alarcon History of hemicolectomy due to Crohn's Hx of cataract extraction Family History Family History
== END 2023-07-06 13:50 | disposition short-term general hospital (02) ==
PROVIDERS: Emergency Provider Registered Nurse; PCP Nurse Practitioner Family
DX: R29.898 Other symptoms and signs involving the musculoskeletal system (principal); M79.10 Myalgia, unspecified site; I25.10 Atherosclerotic heart disease of native coronary artery without angina pectoris; I12.9 Hypertensive chronic kidney disease with stage 1 through stage 4 chronic kidney disease, or unspecified chronic kidney disease; E11.22 Type 2 diabetes mellitus with diabetic chronic kidney disease; N18.4 Chronic kidney disease, stage 4 (severe); E78.5 Hyperlipidemia, unspecified; Z79.82 Long term (current) use of aspirin; Z79.899 Other long term (current) drug therapy
CPT/HCPCS: 99212; G0463

== ENCOUNTER 2023-07-06 14:10 | Observation (INO) | payer MEDICARE, SELFPAY ==
[2023-07-06] VITALS (7 sets, daily range): BP systolic 154–169; BP diastolic 70–118; PULSE 76–89; RESP 14–21; TEMP 36.1–36.7; O2SAT 94–99
--- NOTE | 2023-07-06 17:47 | ED.EXTPRO ---
HPI - Extremity Problem General Chief complaint: Extremity Problem,Nontraumatic <Tali Alvarado PA-C - Last Filed: 07/06/23 22:55> Stated complaint: extremity pain with movement <Tali Alvarado PA-C - Last Filed: 07/06/23 22:55> Time Seen by Provider: 07/06/23 17:11 <Tali Alvarado PA-C - Last Filed: 07/06/23 22:55> Source: patient <Tali Alvarado PA-C - Last Filed: 07/06/23 22:55> Mode of arrival: ambulatory <Tali Alvarado PA-C - Last Filed: 07/06/23 22:55> Limitations: no limitations <Tali Alvarado PA-C - Last Filed: 07/06/23 22:55> History of Present Illness HPI Narrative: This is a 78 year old male that presents to the ER for extremity pain. Ongoing over the last 2 days. Reports he had sinus surgery 2 days ago. Since he has had achy pain in his bilateral upper and lower extremities. Worse with movement and relieved with rest. Reports congestion and pain in his sinuses since his surgery, otherwise has no focal complaints. Denies fever, chest pain, shortness of breath, abdominal pain, vomiting, diarrhea, dysuria or hematuria. <Tali Alvarado PA-C - Last Filed: 07/06/23 22:55> Related Data Home medications: Home Medications Medication Instructions Recorded Confirmed adalimumab 40 mg/0.8 mL 40 mg subcut [id number] 09/03/19 07/06/23 subcutaneous syringe kit (Humira) aspirin 81 mg tablet,delayed 81 mg PO DAILY 09/03/19 07/06/23 release (Adult Low Dose Aspirin) atorvastatin 40 mg tablet 40 mg PO DAILY 09/03/19 07/06/23 azathioprine 75 mg tablet 75 mg PO DAILY 09/03/19 07/06/23 multivitamin (Daily Multi-Vitamin 1 tablet PO DAILY 09/03/19 07/06/23 tablet) vit C 50 mg-E 15 unit-zinc cit 4.5 1 tablet PO DAILY 10/18/19 07/06/23 mg-lutein 2.5 mg[facility]zeaxan chew tablet [facility]) cholecalciferol (vitamin D3) 50 2,000 unit PO DAILY 02/24/21 07/06/23 mcg (2,000 unit) capsule (Vitamin D3) valacyclovir 500 mg tablet 500 mg PO .prn PRN FEVER BLISTERS 05/24/22 07/06/23 azelastine 137 mcg (0.1 %) nasal 1 spray intranasal BID 07/06/23 07/06/23 spray aerosol carvedilol 3.125 mg tablet 3.125 mg PO BID 07/06/23 07/06/23 cefuroxime axetil 500 mg tablet 500 mg PO BID 07/06/23 07/06/23 hydralazine 10 mg tablet 10 mg PO Q12H 07/06/23 07/06/23 pioglitazone 15 mg tablet 15 mg PO DAILY 07/06/23 07/06/23 tamsulosin 0.4 mg capsule 0.4 mg PO DAILY 07/06/23 07/06/23 <Tali Alvarado PA-C - Last Filed: 07/06/23 22:55> Allergies/Adverse reactions: Allergies Allergy/AdvReac Type Severity Reaction Status Date / Time No Known Allergies Allergy Verified 07/06/23 13:18 <Tali Alvarado PA-C - Last Filed: 07/06/23 22:55> Review of Systems Review of Systems: CONSTITUTIONAL: Denies fever ENT: Reports congestion CARDIOVASCULAR: Denies chest pain, or edema. RESPIRATORY: Denies dyspnea. GASTROINTESTINAL: Denies abdominal pain, nausea, vomiting, or diarrhea. GENITOURINARY: Denies dysuria or hematuria. SKIN: Denies rash MUSCULOSKELETAL: Reports myalgia. NEUROLOGIC: Denies numbness, or weakness. <Tali Alvarado PA-C - Last Filed: 07/06/23 22:55> All systems reviewed & are unremarkable except as noted in HPI and below <Tali Alvarado PA-C - Last Filed: 07/06/23 22:55> [facility] Past Medical History Medical History: Medical History Acute osteomyelitis of left calcaneus CKD (chronic kidney disease) stage IV Crohn's disease Fever blister Heart attack History of heart attack Hyperlipidemia Hypertension Left Achilles tendinitis Peroneal tendinitis of left lower leg Recurrent cold sores Skin cancer Skin lesion Uncontrolled type 2 diabetes mellitus with hyperglycemia <Tali Alvarado PA-C - Last Filed: 07/06/23 22:55> Surgical History Surgical History: Surgical History History of coronary artery stent placement x1 2016 History of foot
[2023-07-06 18:10] LABS: Basophils Percent Auto 0.3 % (0.2-1.2); Eosinophils Absolute Auto 0.3 K/mm3 (0-0.3); Eosinophils Percent Auto 2.6 % (0-4.4); Hematocrit 38.5 % (42.0-52.0); Hemoglobin 12.1 g/dL (14.0-18.0); Immature Granulocyte Absolute 0.07 K/mm3 (0.00-0.031); Immature Granulocyte Percent A 0.7 % (0-0.5); Lymphocytes Absolute Auto 2.24 K/mm3 (0.9-3.2); Mean Corpuscular HGB Conc 31.4 g/dl (32-36); Mean Corpuscular Hemoglobin 30.9 pg (26-34); Mean Corpuscular Volume 98.5 fl (80-100); Mean Platelet Volume 9.4 fl (7.4-10.4); Monocytes Percent Auto 10.5 % (2.6-8.5); Neutrophils Absolute Auto 6.1 K/mm3 (1.3-6.7); Neutrophils Percent Auto 62.9 % (45.5-73.1); Platelet Count Result 176 k/mm3 (150-375); Red Blood Count 3.91 M/mm3 (4.6-6.20); Red Cell Distribution Width 15.4 % (11.5-14.5); White Blood Count 9.7 K/mm3 (4.5-10.0)
[2023-07-06 18:18] LABS: Appearance Urine Clear (Clear); Bacteria Urine None Seen /hpf; Bilirubin Urine Negative (Negative); Blood Urine Trace (Negative); Color Urine Yellow (Yellow); Glucose Urine UA Negative (Negative); Ketones Urine Negative (Negative); Leukocyte Esterase Ur Negative LEU/UL (Negative); Nitrate Urine Negative (Negative); Non Pathogenic Casts 0-2; Protein Urine 1+ mg/dL (Negative); RBC Urine 0-2 /hpf (0-2); Specific Grav Ur 1.013 (1.001-1.035); Squamous Epithelial Cell Urine None seen /hpf (Few); Urobilinogen Urine 0.2 mg/dL (<2.0); WBC Urine 0-5 /hpf; pH Urine 6.5 (5.0-9.0)
[2023-07-06 18:20] LABS: Add Urine Microscopic? YES
[2023-07-06 18:23] LABS: Alanine Aminotransferase 31 U/L (6-50); Albumin Level 4.4 g/dL (3.5-5.1); Alkaline Phosphatase 84 U/L (38-126); Anion Gap 9 mmol/L (8-16); Aspartate Amino Transferase 82 U/L (17-59); Bilirubin,Total 0.8 mg/dL (0.2-1.3); Blood Urea Nitrogen 62 mg/dL (9-20); Calcium 8.5 mg/dL (8.4-10.2); Carbon Dioxide 23 mmol/L (22-30); Chloride 108 mmol/L (98-107); Estimated CRCL calculation 17 ml/min; Estimated Glomerular Filt Rate 16; Glucose 108 mg/dL (65-110); Magnesium 2.1 mg/dL (1.6-2.3); Potassium 4.5 mmol/L (3.4-5.0); Sodium 140 mmol/L (137-145)
[2023-07-06 18:32] LABS: Creatine Kinase 2256 U/L (55-170)
[2023-07-06 18:46] LABS: Influenza A QL RT-PCR Negative (Negative); Influenza B QL RT-PCR Negative (Negative); SARS-CoV-2 RNA PCR Negative (Negative)
[2023-07-06] MEDS: SODIUM CHLORIDE 0.9% IV 500 ML 999 ML IV CONT (19:03)
[2023-07-06] MEDS: SODIUM CHLORIDE 0.9% IV 1,000 ML 999 ML IV CONT (19:40)
[2023-07-06] MEDS: SODIUM CHLORIDE 0.9% IV 1,000 ML 100 ML IV CONT (20:48)
--- NOTE | 2023-07-06 21:43 | ADMGEN ---
This patient, Chuckie Hickey, was admitted to Medical Room 254-01. Patient/family oriented to hospital policies and general routines including ID bracelet, bed and alarms, visiting hours, pain management, procedures, bathroom and other care routines, personal items, smoking policy, room service/diet, and visiting hours. Information on how to activate the Rapid Response Team has been discussed. Patient/Family are encouraged to report perceived risks to care and to ask questions if they do not understand what they are told or what they should do.
[2023-07-06 22:15] LABS: Glucose Point of Care 127 mg/dl (65-105)
--- NOTE | 2023-07-06 22:41 | PM.IMHP ---
H&P: HPI History of Present Illness Date/Time: 07/06/23 22:41 Chief Complaint: Patient came to the ER for evaluation with complaints of pain in both legs and difficulty walking Narrative: Very pleasant gentleman who came to the ER complaining of pain in his both legs, started 2 days ago and is progressively getting worse. He has had sinus surgery 2 days ago. He also has achy pain bilaterally in upper extremities as well, worse with movement and relieved with rest. Workup was done in the ER which showed rhabdomyolysis. Patient was started on IV hydration and is being admitted for medical management and close monitoring. Review of Systems Review of Systems: he denies any chest pain, palpitation, fever rigor chills, nausea vomiting, dizziness or loss of consciousness All systems reviewed & are unremarkable except as noted in HPI and below PMFSH Past Medical History Medical History Acute osteomyelitis of left calcaneus CKD (chronic kidney disease) stage IV Crohn's disease Fever blister Heart attack History of heart attack Hyperlipidemia Hypertension Left Achilles tendinitis Peroneal tendinitis of left lower leg Recurrent cold sores Skin cancer Skin lesion Uncontrolled type 2 diabetes mellitus with hyperglycemia Surgical History Surgical History History of coronary artery stent placement x1 2016 History of foot surgery Left calcaneus fracture reattached, Dr. Alarcon History of hemicolectomy due to Crohn's Hx of cataract extraction Family History Family History Mother Family history of heart disease in male family member before age 55 Family history of cardiovascular disease Patient's mother is Diabetes mellitus Heart disease Hypertension Father Family history of heart disease in male family member before age 55 Patient's father is Heart disease Sibling Family history of malignant neoplasm Patient's sister is Breast cancer Other High cholesterol Social History Social History Social History: the patient is single and never . He has no children. He is a lifelong nonsmoker. He denies any alcohol marijuana or illicit drugs. He states that his sister is his durable power commercial attorney for healthcare. The patient desires to be a full code. He is retired from [employer]. He lives alone. Smoking status: Never smoker Second hand tobacco smoke exposure: No Alcohol intake: never Substance use: never Substance use type: does not use Lack of Transportation: No Lack of Food: Never True Current Housing: I Have Housing Concerned About Future Housing: No Difficulty Paying Gas/Electric Bills: No Difficulty Paying for Meds: No Currently Unemployed: No Education: Trade/Vocational Certificate Difficulty w/ Childcare or Family Care: No Living arrangements: alone Gender identity (if verbalized by the patient): Male Sexual Orientation (if Verbalized by the Patient): Straight or Heterosexual Spiritual care concerns: No Meds Home Medications and Allergies Home Medications Medication Instructions Recorded Confirmed Type adalimumab 40 mg/0.8 mL 40 mg subcut [id number] 09/03/19 07/06/23 History subcutaneous syringe kit (Humira) aspirin 81 mg tablet,delayed 81 mg PO DAILY 09/03/19 07/06/23 History release (Adult Low Dose Aspirin) atorvastatin 40 mg tablet 40 mg PO DAILY 09/03/19 07/06/23 History azathioprine 75 mg tablet 75 mg PO DAILY 09/03/19 07/06/23 History multivitamin (Daily Multi-Vitamin 1 tablet PO DAILY 09/03/19 07/06/23 History tablet) vit C 50 mg-E 15 unit-zinc cit 4.5 1 tablet PO DAILY 10/18/19 07/06/23 History mg-lutein 2.5 mg-zeaxan chew tablet ([facility]) chol
[2023-07-06] MEDS: carvediloL 3.125 MG TABLET PO (23:16)
[2023-07-06] MEDS: hydrALAZINE 10 MG TABLET PO (23:17)
[2023-07-07 01:00] VITALS: BP 162/80; PULSE 70; RESP 18; TEMP 36.6; O2SAT 99
[2023-07-07 05:27] VITALS: BP 155/75; PULSE 82; RESP 16; TEMP 36.7; O2SAT 98
[2023-07-07 06:02] LABS: Basophils Percent Auto 0.4 % (0.2-1.2); Eosinophils Absolute Auto 0.3 K/mm3 (0-0.3); Eosinophils Percent Auto 3.2 % (0-4.4); Hematocrit 34.9 % (42.0-52.0); Immature Granulocyte Absolute 0.05 K/mm3 (0.00-0.031); Immature Granulocyte Percent A 0.6 % (0-0.5); Lymphocytes Absolute Auto 1.72 K/mm3 (0.9-3.2); Lymphocytes Percent Auto 22.1 % (18.3-44.2); Mean Corpuscular HGB Conc 31.5 g/dl (32-36); Mean Corpuscular Hemoglobin 31.3 pg (26-34); Mean Corpuscular Volume 99.4 fl (80-100); Mean Platelet Volume 9.1 fl (7.4-10.4); Neutrophils Absolute Auto 4.7 K/mm3 (1.3-6.7); Neutrophils Percent Auto 60.7 % (45.5-73.1); Platelet Count Result 148 k/mm3 (150-375); Red Blood Count 3.51 M/mm3 (4.6-6.20); Red Cell Distribution Width 15.2 % (11.5-14.5); White Blood Count 7.8 K/mm3 (4.5-10.0)
[2023-07-07] MEDS: SODIUM CHLORIDE 0.9% IV 1,000 ML 100 ML IV CONT (06:03)
[2023-07-07] MEDS: ACETAMINOPHEN 325 MG TABLET 650 MG PO (06:05)
[2023-07-07 06:11] LABS: Alanine Aminotransferase 27 U/L (6-50); Albumin Level 3.6 g/dL (3.5-5.1); Alkaline Phosphatase 72 U/L (38-126); Anion Gap 8 mmol/L (8-16); Aspartate Amino Transferase 58 U/L (17-59); Bilirubin,Total 0.6 mg/dL (0.2-1.3); Blood Urea Nitrogen 53 mg/dL (9-20); Carbon Dioxide 18 mmol/L (22-30); Chloride 113 mmol/L (98-107); Creatine Kinase 1093 U/L (55-170); Estimated CRCL calculation 19 ml/min; Estimated Glomerular Filt Rate 18; Glucose 115 mg/dL (65-110); Phosphorus 4.2 mg/dL (2.5-4.5); Potassium 4.3 mmol/L (3.4-5.0); Sodium 139 mmol/L (137-145)
[2023-07-07 08:00] VITALS: BP 156/67; PULSE 78; RESP 16; TEMP 36; O2SAT 98
[2023-07-07 08:41] LABS: Glucose Point of Care 125 mg/dl (65-105)
[2023-07-07] MEDS: ASPIRIN 81 MG ENTERIC TABLET PO (09:29)
[2023-07-07] MEDS: azaTHIOprine 25 MG TABLET PO (09:30)
[2023-07-07] MEDS: ATORVASTATIN 40 MG TABLET PO (09:30)
[2023-07-07] MEDS: azaTHIOprine 50 MG TABLET PO (09:31)
[2023-07-07 09:32] VITALS: PULSE 88
[2023-07-07] MEDS: carvediloL 3.125 MG TABLET PO (09:32)
[2023-07-07] MEDS: CEFUROXIME AXETIL 250 MG TABLET 500 MG PO (09:33)
[2023-07-07] MEDS: CHOLECALCIFEROL 1,000 UNITS TABLET 2000 UNITS PO (09:33)
[2023-07-07] MEDS: hydrALAZINE 10 MG TABLET PO (09:33)
--- NOTE | 2023-07-07 10:54 | PM.DS ---
DS: Admitting Diagnosis Discharge Date December 05, 2022 Admitting Diagnosis Rhabdomyolysis DS: Discharge Diagnosis Discharge Diagnosis (1) Rhabdomyolysis: Code(s): M62.82 - Rhabdomyolysis Status: Acute (2) Hypertension: Code(s): I10 - Essential (primary) hypertension Status: Chronic (3) Hyperlipidemia: Code(s): E78.5 - Hyperlipidemia, unspecified Status: Acute (4) Crohn's disease: Code(s): K50.90 - Crohn's disease, unspecified, without complications Status: Chronic (5) Vitamin D deficiency: Code(s): E55.9 - Vitamin D deficiency, unspecified Status: Acute (6) Exudative macular degeneration: Code(s): H35.3290 - Exudative age-related macular degeneration, unspecified eye, stage unspecified Status: Acute (7) Type 2 diabetes mellitus: Qualifiers: Diabetes mellitus senior living insulin use: without senior living use Diabetes mellitus complication status: with neurologic complications Diabetes mellitus complication detail: with polyneuropathy Qualified Code(s): E11.42 - Type 2 diabetes mellitus with diabetic polyneuropathy Code(s): E11.9 - Type 2 diabetes mellitus without complications Status: Chronic (8) CKD (chronic kidney disease): Qualifiers: Chronic kidney disease stage: stage 3 (moderate) Chronic kidney disease stage 3 subtype: stage 3b (GFR 30-44) Qualified Code(s): N18.32 - Chronic kidney disease, stage 3b Code(s): N18.9 - Chronic kidney disease, unspecified Status: Chronic (9) Coronary artery disease: Code(s): I25.10 - Atherosclerotic heart disease of [place] coronary artery without angina pectoris Status: Acute (10) BPH associated with nocturia: Code(s): N40.1 - Benign prostatic hyperplasia with lower urinary tract symptoms; R35.1 - Nocturia Status: Acute (11) Allergic rhinitis: Code(s): J30.9 - Allergic rhinitis, unspecified Status: Acute (12) VELASQUEZ (obstructive sleep apnea): Code(s): G47.33 - Obstructive sleep apnea (adult) (pediatric) Status: Acute Plan Admit patient to medical unit under full inpatient status Patient started on aggressive IV hydration with 2 L of IV normal saline in the ER Continue with IV normal saline at 100 cc/hr on the floor Strict I&Os Patient's CK level on admission was elevated at 2256 Monitor CK level daily for down trending Patient has existing stage 4 chronic kidney disease Nephrology consult given in a.m. for evaluation and treatment recommendations regarding CKD 4 and rhabdomyolysis Continue with pain meds p.r.n. as needed Patient started on Accu-Cheks with Insulin coverage as per protocol Encourage ambulation at the bedside. He is planning once patient is clinically stable and cleared by Nephrology for discharge ? Patient seen and examined at bedside ? Collaborated with patient's nurse at the bedside in detail and addressed all concerns ? Labs, electrolytes, radiology, investigations and test results reviewed ? ED/Consult/Nursing/Ancilliary notes on the chart reviewed and appreciated ? Spoke with patient/family at the bedside and answered all the questions that they had Continue with home meds. Monitor patient closely while admitted. Patient needs close follow up with PCP/specialists as an outpatient to address chronic medical issues. Repeat labs in a.m. Electrolyte replacement as per protocol. Patient will be monitored very closely on the floor. Further recommendations as per the hospital course. Patient's medical management will be taken over by our hospitalist team in a.m. DS: Summary Hospital Course Hospital Course: Rhabdomyolysis. Patient was admitted for elevated CK and weakness. This has resolved. CK is improving significantly. No new kidney injury. He can be discharged Time Spent with Patient Time attestation: Total time spent providing and/or coordinating discharge services: Exam Alec
[2023-07-07 12:18] LABS: Glucose Point of Care 94 mg/dl (65-105)
== END 2023-07-07 12:36 | disposition home or self-care (01) ==
LOC: ANHED 17:28 → ANH2MED 22:54
PROVIDERS: Admitting Provider Family Medicine; Emergency Provider Physician Assistant; PCP Nurse Practitioner Family; Visit Provider Chiropractor
DX: M62.82 Rhabdomyolysis (principal); I12.9 Hypertensive chronic kidney disease with stage 1 through stage 4 chronic kidney disease, or unspecified chronic kidney disease; E78.5 Hyperlipidemia, unspecified; N18.32 Chronic kidney disease, stage 3b; E11.22 Type 2 diabetes mellitus with diabetic chronic kidney disease; K50.90 Crohn's disease, unspecified, without complications; E55.9 Vitamin D deficiency, unspecified; H35.3290 Exudative age-related macular degeneration, unspecified eye, stage unspecified; I25.10 Atherosclerotic heart disease of native coronary artery without angina pectoris; N40.1 Benign prostatic hyperplasia with lower urinary tract symptoms; R35.1 Nocturia; J30.9 Allergic rhinitis, unspecified; G47.33 Obstructive sleep apnea (adult) (pediatric); Z20.822 Contact with and (suspected) exposure to COVID-19
CPT/HCPCS: 36415; 80053; 81001; 82550; 82948; 83735; 84100; 85025; 87636; 96360; 96361; 99212; 99285; A9270; G0378; G0463; J7030; J7040

== ENCOUNTER 2023-07-09 19:33 | Emergency (ER) | payer MEDICARE, SELFPAY ==
--- NOTE | ~2023-07-09 | XR_ITS ---
EXAM: XR hand LT min 3V DATE: 07/09/2023 20:05 HISTORY: lac from broken plate to lateral 5th . COMPARISON: None available. FINDINGS: Overlapping fingers and lateral view obscure the fifth digit Normal mineralization. No frac ture or dislocation. No lytic or blastic lesion. Joint spaces are maintained. No erosion or periostea l change. Subcutaneous emphysema overlying the soft tissue web between the first and second digits. P ossible soft tissue laceration medially. IMPRESSION: Exam limited by overlapping fingers and the lateral view. Within that constraint, no acut e osseous finding the left hand. No radiopaque foreign body. Subcutaneous emphysema between the first and second digits, correlate for signs of injury or infectio n. Reviewed, dictated and finalized at location K. IMPRESSION: Exam limited by overlapping fingers and the lateral view. Within th at constraint, no acute osseous finding the left hand. No radiopaque foreign fidel dy. Subcutaneous emphysema between the first and second digits, correlate for signs of injury or infection.
[2023-07-09 19:40] VITALS: BP 167/68; PULSE 99; RESP 14; TEMP 37.2; O2SAT 95
--- NOTE | 2023-07-09 19:56 | ED.WOUNDLAC ---
HPI - Wound/Laceration General Chief Complaint: Wound/Laceration Stated Complaint: laceration Time Seen by Provider: 07/09/23 19:50 History of Present Illness HPI narrative: 78M p/w injury to L hand from broken plate. Denies injuries elsewhere; there was some bleeding which stopped with pressure. No focal numbness; able to move hand. Related Data Home Medications Medication Instructions Recorded Confirmed adalimumab 40 mg/0.8 mL 40 mg subcut [id number] 09/03/19 07/06/23 subcutaneous syringe kit (Humira) aspirin 81 mg tablet,delayed 81 mg PO DAILY 09/03/19 07/06/23 release (Adult Low Dose Aspirin) atorvastatin 40 mg tablet 40 mg PO DAILY 09/03/19 07/06/23 azathioprine 75 mg tablet 75 mg PO DAILY 09/03/19 07/06/23 multivitamin (Daily Multi-Vitamin 1 tablet PO DAILY 09/03/19 07/06/23 tablet) vit C 50 mg-E 15 unit-zinc cit 4.5 1 tablet PO DAILY 10/18/19 07/06/23 mg-lutein 2.5 mg-zeaxan chew tablet ([facility]) cholecalciferol (vitamin D3) 50 2,000 unit PO DAILY 02/24/21 07/06/23 mcg (2,000 unit) capsule (Vitamin D3) valacyclovir 500 mg tablet 500 mg PO .prn PRN FEVER BLISTERS 05/24/22 07/06/23 azelastine 137 mcg (0.1 %) nasal 1 spray intranasal BID 07/06/23 07/06/23 spray aerosol carvedilol 3.125 mg tablet 3.125 mg PO BID 07/06/23 07/06/23 cefuroxime axetil 500 mg tablet 500 mg PO BID 07/06/23 07/06/23 hydralazine 10 mg tablet 10 mg PO Q12H 07/06/23 07/06/23 pioglitazone 15 mg tablet 15 mg PO DAILY 07/06/23 07/06/23 tamsulosin 0.4 mg capsule 0.4 mg PO DAILY 07/06/23 07/06/23 Allergies Allergy/AdvReac Type Severity Reaction Status Date / Time No Known Allergies Allergy Verified 07/06/23 13:18 Review of Systems Review of Systems: M/S: L hand injury SKIN: Lac to L hand NEURO: [No focal numbness or weakness] [facility] Past Medical History Medical History Acute osteomyelitis of left calcaneus CKD (chronic kidney disease) stage IV Crohn's disease Fever blister Heart attack History of heart attack Hyperlipidemia Hypertension Left Achilles tendinitis Peroneal tendinitis of left lower leg Recurrent cold sores Skin cancer Skin lesion Uncontrolled type 2 diabetes mellitus with hyperglycemia Surgical History Surgical History History of coronary artery stent placement x1 2017 History of foot surgery Left calcaneus fracture reattached, Dr. Alarcon History of hemicolectomy due to Crohn's Hx of cataract extraction Family History Family History Mother Family history of heart disease in male family member before age 55 Family history of cardiovascular disease Patient's mother is Diabetes mellitus Heart disease Hypertension Father Family history of heart disease in male family member before age 55 Patient's father is Heart disease Sibling Family history of malignant neoplasm Patient's sister is Breast cancer Other High cholesterol Social History Social History Social History: the patient is single and never . He has no children. He is a lifelong nonsmoker. He denies any alcohol marijuana or illicit drugs. He states that his sister is his durable power title attorney for healthcare. The patient desires to be a full code. He is retired from [employer]. He lives alone. Smoking status: Never smoker Second hand tobacco smoke exposure: No Alcohol intake: never Substance use: never Substance use type: does not use Lack of Transportation: No Lack of Food: Never True Current Housing: I Have Housing Concerned About Future Housing: No Difficulty Paying Gas/Electric Bills: No Difficulty Paying for Meds: No Currently Unemployed: No Education: Trade/Vocational Certificate Difficult
[2023-07-09] MEDS: HYDROcodone/acetaminophen (*CRX) 5-325 MG TABLET 1 TAB PO (20:08)
[2023-07-09] MEDS: TETANUS,DIPHTHERIA,AC PERTUSSIS ADULT (0.5 ML) BOOSTRIX IM (20:09)
--- NOTE | 2023-07-09 20:15 | PC.NURSE ---
Patient is already on Keflex from previous visit. Notified EDP Dr. Sharma who advised to not give the Keflex PO order.
== END 2023-07-09 21:04 | disposition home or self-care (01) ==
PROVIDERS: Emergency Provider Emergency Medicine; PCP Nurse Practitioner Family
DX: S61.412A Laceration without foreign body of left hand, initial encounter (principal); I12.9 Hypertensive chronic kidney disease with stage 1 through stage 4 chronic kidney disease, or unspecified chronic kidney disease; E11.22 Type 2 diabetes mellitus with diabetic chronic kidney disease; N18.4 Chronic kidney disease, stage 4 (severe); K50.90 Crohn's disease, unspecified, without complications; W25.XXXA Contact with sharp glass, initial encounter; Z23 Encounter for immunization
CPT/HCPCS: 12002; 73130; 90471; 90715; 99283; A9270

== ENCOUNTER 2023-08-18 10:00 | Outpatient (CLI) | payer MEDICARE, SELFPAY ==
--- NOTE | 2023-08-19 06:11 | WPDPFTINT ---
PFT Procedure Performed PFT Procedure Performed Spirometry with Pre/Post Bronchodilator Plethysmography (Lung Vol) Diffusing Cap (DLCO) Flow Vol Loop PFT Interpretation This is a pulmonary function test with pre and post-bronchodilator spirometry, plethysmography and diffusing capacity. The test was performed and results interpreted in accordance with the 2019 and 2005 ATS/ERS Task Force guidelines respectively using the Global Lung Function Initiative-2012 reference equations. Patient demonstrated good effort and cooperation. Reproducibility criteria were met. The quality of the pre bronchodilator spirometry maneuver was Grade A and post bronchodilator spirometry maneuver was Grade B. Findings: Spirometry: The contour the inspiratory and expiratory flow tracing are normal. The pre bronchodilator FVC is 3.67 L, 101% predicted. The pre bronchodilator FEV1 is 2.62 L, 97% predicted. The pre bronchodilator FEV1: FVC ratio 71%. The post bronchodilator FVC is 3.69 L, representing 1% increase. The post bronchodilator FEV1 is 2.74 L, representing a 5% increase. The post bronchodilator FEV1: FVC ratio is 74% predicted. Plethysmography: The total lung capacity is 7.49 L, 112% predicted. The functional residual capacity is 4.03 L, 112% predicted. The residual volume is 3.29 L, 129% predicted. Diffusing capacity: The diffusing capacity unadjusted for hemoglobin and carboxyhemoglobin is 14.6, 64% predicted. The diffusing capacity adjusted for alveolar volume is 2.86, 76% predicted. Impression: The spirometry is normal without evidence of an obstructive abnormality. There is no significant improvement after inhaling a single dose of albuterol. The lung volumes are normal. The diffusing capacity unadjusted for hemoglobin and carboxyhemoglobin is mildly decreased and normalizes when adjusted for alveolar volume. There are no prior studies for comparison
== END 2023-08-18 10:01 | disposition home or self-care (01) ==
LOC: ANHPFT 10:01
PROVIDERS: PCP Nurse Practitioner Family; Visit Provider Nurse Practitioner Family
DX: R06.02 Shortness of breath (principal); R53.83 Other fatigue; R68.89 Other general symptoms and signs
CPT/HCPCS: 94060; 94726; 94729

== ENCOUNTER 2023-12-19 08:32 | Outpatient (CLI) | payer MEDICARE, SELFPAY ==
--- NOTE | ~2023-12-19 | MR_ITS ---
EXAMINATION: MR knee LT wo con DATE: 12/19/2023 09:31 INDICATION: Chronic left knee pain TECHNIQUE: Magnetic resonance imaging (MRI) of the left knee was performed without intravenous contra st. Sequences included coronal PD-weighted FSE, coronal PD-weighted FS FSE, sagittal T2-weighted FSE , sagittal PD-weighted FS FSE and axial PD weighted fat saturated FSE. COMPARISON: None. FINDINGS: Medial compartment: Longitudinal horizontal tear extending to the inferior articular surface near the free edge of the ju nction of the posterior horn and body of the medial meniscus.. Partial-thickness chondral fissuring w ithout degenerative subchondral changes at the anterior weightbearing medial femoral condyle. Small s hallow chondral fissure slightly anterior to the center of the medial tibial plateau. Lateral compartment: Longitudinal horizontal tear extending to the intra-articular surface near the free edge of the poste rior horn of the lateral meniscus. Articular cartilage is normal. Patellofemoral compartment: There is deep chondral ulceration and fissuring along the patella with scattered underlying cortical irregularity and tiny central subchondral osteophytes. Additional full/near full-thickness chondral u lceration with subtle underlying cortical irregularity and mild subarticular edema-like signal change at the lateral half of the lateral trochlea. Additional partial thickness fissuring at the superomed ial aspect of the lateral trochlea and at the cephalad margin of the trochlear groove and medial troc hlea with tiny focus of subarticular edema-like signal change at the trochlear groove. Ligaments and tendons: Anterior and posterior cruciate ligaments are normal. The medial collateral ligament and fibular asia ateral ligament complex are normal. Mild patellar tendinopathy and distal quadriceps tendinopathy. Pr ominent enthesophyte at the patellar insertion of the proximal patellar tendon. The visualized medial and lateral hamstring tendons as well as the iliotibial band are normal. There is mild cystic change at the posterior aspect of the medial tibial plateau along the footplate of the semimembranosus tend on. Fluid: Small left knee joint effusion with mild synovitis at the suprapatellar pouch. No loose osteochondral bodies identified. Osseous/other: Bone alignment is normal. No fracture or pathologic marrow replacing process. IMPRESSION: 1. Longitudinal horizontal tears at the posterior root of the lateral meniscus and at the junction th e body and posterior horn of the medial meniscus. 2. Moderate patellofemoral osteoarthritis with extensive high-grade patellar and trochlear chondromal acia. 3. Mild osteoarthritis with moderate grade chondromalacia in the medial compartment. 4. Mild tendinopathy/enthesopathy of the extensor mechanism. Reviewed, dictated and finalized at location A. TERM IMPRESSION: 1. Longitudinal horizontal tears at the posterior root of the lateral meniscus and at the junction the body and posterior horn of the medial meniscus. 2. Moderate patellofemoral osteoarthritis with extensive high-grade patellar an d trochlear chondromalacia. 3. Mild osteoarthritis with moderate grade chondromalacia in the medial compart ment. 4. Mild tendinopathy/enthesopathy of the extensor mechanism.
== END 2023-12-19 08:33 | disposition home or self-care (01) ==
PROVIDERS: PCP Nurse Practitioner Family; Visit Provider Nurse Practitioner Family
DX: M17.12 Unilateral primary osteoarthritis, left knee (principal); S83.282A Other tear of lateral meniscus, current injury, left knee, initial encounter; X58.XXXA Exposure to other specified factors, initial encounter
CPT/HCPCS: 73721

== ENCOUNTER 2024-01-19 10:43 | Outpatient (CLI) | payer MEDICARE, SELFPAY ==
--- NOTE | ~2024-01-19 | XR_ITS ---
EXAM: XR sinus min 3V DATE: 01/19/2024 11:01 HISTORY: J01.90 - Acute sinusitis, unspecified . COMPARISON: CT sinus 05/12/2023. FINDINGS: Somewhat decreased mineralization. Multiple absent teeth. No fracture. No abnormal intracr anial calcification. Intact symmetric orbits. Rightward nasal septal deviation. The aerated spaces ar e clear. Degenerative changes in the cervical spine. IMPRESSION: Unremarkable sinus radiograph findings. If symptoms persist or clinical suspicion of sign ificant sinus disease remains high, consider CT of the sinuses for further evaluation. Reviewed, dictated and finalized at location K. IMPRESSION: Unremarkable sinus radiograph findings. If symptoms persist or clin ical suspicion of significant sinus disease remains high, consider CT of the si nuses for further evaluation.
== END 2024-01-19 10:44 ==
PROVIDERS: PCP Otolaryngology; Visit Provider Otolaryngology
DX: J01.90 Acute sinusitis, unspecified (principal)
CPT/HCPCS: 70220

== ENCOUNTER 2024-01-22 10:15 | Outpatient (RCR) | payer MEDICARE, SELFPAY ==
--- NOTE | 2023-12-14 10:54 | PTOPEVAL1 ---
Assessment and note entered by Otilio North Evaluation Information Assessment Status Evaluation Diagnosis primary OA left knee, left knee pain Onset 11/16/23 Subjective Information Pt. reports that he developed left knee pain about 4 weeks ago. He reports that he was bowling and noticed pain developed into the left knee. He reports that he attempted to continue to bowl, however pain got worse. He states that he tried to take 2 weeks off, but still had pain upon returning to bowling. He states that he feels like the knee locks with moving. He reports that he notices a restriction in the left knee movement , more than pain. He describes pain developing in the anterior left thigh. He states that he did receive and cortisone shot last week, which has helped to reduce pain. He still notices the knee catching and stiffening up. He reports that his pain is an 8/10 with activities such as bowling. He did undergo xray, which revealed some thinning of the joint and some bone spurs. He reports that he has not returned to bowling. He states that he was very active prior to injury, doing all his own yard work and participating in bowling weekly. He states that he is currently avoiding these activities due to pain. He reports that his goal is to decrease his left knee pain and stiffness. Reported Pain Level Pain Score 8: Self Report Assessment PT Clinical Summary Pt. is an 78 year old male who enters the clinic with left knee pain. He presents with indication of OA and possible meniscus pathology on the left. He presents with impaired gait mechanics, impaired left knee and bilateral hip mobility, impaired flexibility, impaired l.e. strength and pain. Continued skilled PT is indicated in order to improve these areas to allow for improved comfort and efficiency with IADL performance. Plan of Care Interventions Electrical Stimulation,Gait Training,Hot Pack/Cold Pack,Manual Lymph Drainage,Neuro Re-education, Patient/Caregiver Educati,Therapeutic Activities, Therapeutic Exercise PT Services Indicated Yes Treatment Frequency and 2x/week x 10 visits Duration These treatments will address the objective and functional deficits as defined above. The patient will be advanced safely and appropriately in order for the patient to progress towards his/her prior level of function. Additional exercises will be introduced and as well as a comprehensive home exercise program upon discharge, if
--- NOTE | 2023-12-14 10:57 | OPREHPOC ---
Outpatient Therapy Plan of Care This is a Multidisciplinary Plan of Care that may contain components documented by all disciplines (PT, OT, and ST.) PT Problem 1 PT Problem #1 Knowledge Deficit PT Goal 1 Goal Independent with a HEP addressing flexibility, ROM and strength at the bilateral l.e. Target Visit 2 PT Problem 2 PT Problem #2 Pain PT Goal 1 Goal Pt. will report reduction in pain levels to 4/10 at worst with all standing activities. Target Visit 10 PT Problem 3 PT Problem #3 Impaired Range of Motion PT Goal 1 Goal Pt. will present with 0-130 degrees left knee active ROM without pain at end range of motion Pt. will present at 20 degrees from full knee extension on right and the left with the 90/90 test. Target Visit 5 PT Problem 4 PT Problem #4 Impaired Functional Mobil PT Goal 1 Goal Pt. will demonstrate less than 45% limitation on the LEFS indicating improved comfort and function in order to transition back to bowling Target Visit 10
--- NOTE | 2024-01-22 10:58 | PTOPDC ---
Assessment and note entered by Minal Lam, PT Discharge Information Assessment Status Discharge Diagnosis primary OA left knee, left knee pain Onset 11/16/23 Subjective Information saw last week, going to try injections and hold off on the knee replacement for a little longer; doing all the exercises at home; at home, have problems getting up off the floor; OK with being done with therapy now; Reported Pain Level Pain Score Self Report Additional Pain Score Comments pain range of 1-3/10; no pattern that causes it to get worse knee catches sometimes Assessment PT Clinical Summary Chuckie has received 10 PT sessions. Compared to the initial evaluation: pain is now 1 -3/10, with reports of catching sometimes; no tenderness reported with palpation over knee; improved functional score with LE functional scale from 66 to 41% limitation in activity; tightness of hamstring and anterior hip-quad is about the same; increase strength of hip and knee, education completed for HEP. The goals were partially met. Discharge PT services. To continue with HEP Plan of Care PT Services Indicated No
== END 2024-01-22 14:16 | disposition home or self-care (01) ==
LOC: ANHPT 10:15
PROVIDERS: PCP Nurse Practitioner Family; Visit Provider Nurse Practitioner Family
DX: M17.12 Unilateral primary osteoarthritis, left knee (principal)
CPT/HCPCS: 97014; 97110; 97112; 97161; 97530; G0283

== ENCOUNTER 2024-02-02 09:45 | Outpatient (CLI) | payer MEDICARE, SELFPAY ==
--- NOTE | ~2024-02-02 | CT_ITS ---
EXAMINATION: CT sinus wo con DATE: 02/02/2024 09:54 INDICATION: Chronic sinusitis TECHNIQUE: Computed tomography (CT) of the paranasal sinuses was performed without intravenous contra st. The dose-length product was 309.35 mGy-cm. Automated exposure control and iterative reconstructio n technique were employed. COMPARISON: None FINDINGS: There is mild mucosal thickening of the left maxillary sinus. No significant nasal septal d eviation. Right ostiomeatal unit is partially occluded by soft tissue. Left ostiomeatal unit is paten t. There is mild mucosal thickening of the ethmoid sinuses. Mastoids are pneumatized. No air-fluid le vels. No significant mucoperiosteal reaction. IMPRESSION: 1. Mild sinus disease. Reviewed, dictated and finalized at location B. IMPRESSION: 1. Mild sinus disease.
== END 2024-02-02 09:46 | disposition home or self-care (01) ==
LOC: ANHIMG 09:46
PROVIDERS: PCP Otolaryngology; Visit Provider Otolaryngology
DX: J32.9 Chronic sinusitis, unspecified (principal)
CPT/HCPCS: 70486

== ENCOUNTER 2024-04-11 08:01 | Outpatient (CLI) | payer MEDICARE, SELFPAY ==
--- NOTE | ~2024-04-11 | MR_ITS ---
EXAMINATION: MR ankle LT wo con DATE: 04/11/2024 08:42 INDICATION: Osteomyelitis TECHNIQUE: Magnetic resonance imaging (MRI) of the left ankle was performed without intravenous contr ast. Sequences included axial, sagittal and coronal T1-weighted FSE, axial and coronal T2-weighted FS FSE and sagittal fluid sensitive FSE STIR. COMPARISON: Left foot radiographs dated 04/02/2024, CT dated 06/17/2023 and left ankle MRI dated 02/26/20 21 FINDINGS: Medial ankle ligaments: Deep and superficial deltoid ligaments as well as the spring ligament are normal. Lateral ankle ligaments: The anterior and posterior inferior tibiofibular ligaments are normal. The anterior talofibular, calc aneofibular and posterior talofibular ligaments are normal. Tendons: Again seen is thickening of the distal Achilles tendon with unchanged T2 hyperintense sagittal orient ed tract extending across the distalmost tendon immediately superficial to what appears to be an old healed screw tracts for prior internal fixation of the calcaneus. The peroneus longus tendon remains normal. Unchanged potential split tear of the brevis tendon at the level of the retromalleolar groove . The tibialis anterior and extensor hallucis longus and extensor digitorum longus tendons are normal . The tibialis posterior, flexor digitorum longus and flexor hallucis longus tendons are normal. Plantar fascia: Moderate-sized plantar calcaneal spur with mild thickening of the central component of the plantar ap oneurosis consistent with mild enthesopathy. No associated marrow edema surrounding soft tissue edema to suggest acute plantar fasciitis. Bones/other: There is a thin rim of fluid signal surrounding a 1.8 x 1.6 x 1.1 cm region of absent signal in the l ateral calcaneal body at the site of prior osteomyelitis consistent with reported history of prior fidel ne debridement and placement of antibiotic impregnated cement. There is minimal surrounding marrow ed art without evident geographic loss of T1 marrow fat signal to more specifically suggest osteomyeliti s. Similarly there is no abnormal marrow signal surrounding the corticated screw tract at the posteri or calcaneus to suggest recurrent osteomyelitis. Also arguing against osteomyelitis is T1 hyperintens e fat filling regions of lucency seen on the prior CT which extend cephalad and caudal from the screw tract. There is a small region along the lateral calcaneus were the cement appears exposed to the ov erlying soft tissues, uncovered by cortex. There is a 1.8 x 1.3 x 0.7 cm multilobulated region which is T2 hyperintense and mildly T1 hyperintense which appears similar in signal intensity and contiguou s with some surrounding vessels suggesting this is vascular. No edema in the overlying fat to suggest inflammation such as in the setting of abscess. No fractures identified aside from the likely previo usly internally fixed and healed chronic calcaneal fracture. Alignment remains near-anatomic. Mild to moderate calcaneocuboid osteoarthritis with a few small regions of subarticular edema-like signal ch santiago. Mild osteoarthritis at the subtalar joint and minimal to mild osteoarthritis at a few of the re maining joints in the midfoot. Fluid: Physiologic amount fluid in the joint spaces. No tenosynovitis, abscess or other abnormal fluid colle ctions. IMPRESSION: 1. Interval debridement of a region of prior osteomyelitis at the lateral calcaneus with placement of antibiotic impregnated cement at the site of debridement. Minimal surrounding nonspecific marrow vivek ma without evident loss of T1 hyperintense fat signal or trabecular erosions on prior CT to suggest o steomyelitis. 2. Moderate tendinopathy and longitudinal split of the peroneus brevis tendon. 3. Moderate distal Achilles tendinosis with persistent tract of increased fluid signal intensity exte nding through a likely postoperative defect which extends to an old screw tra
== END 2024-04-11 08:02 ==
LOC: MICIMG 08:03
PROVIDERS: PCP Orthopaedic Surgery; Visit Provider Orthopaedic Surgery
DX: M86.9 Osteomyelitis, unspecified (principal); M19.072 Primary osteoarthritis, left ankle and foot; M77.32 Calcaneal spur, left foot; M76.62 Achilles tendinitis, left leg
CPT/HCPCS: 73721

== ENCOUNTER 2024-11-27 12:50 | Outpatient (CLI) | payer MEDICARE, SELFPAY ==
--- NOTE | ~2024-11-27 | CT_ITS ---
EXAMINATION: CT brain & sinus wo con DATE: 11/27/2024 13:10 INDICATION: Dizziness and giddiness. TECHNIQUE: Computed tomography (CT) of the head and sinuses was performed without intravenous contras t. The mA was adjusted according to patient size. Iterative reconstruction technique was employed. Th e dose-length product was 674.51 mGy-cm. COMPARISON: CT sinuses 02/02/2024, head CT 05/26/2011 FINDINGS: HEAD CT: There is no intracranial hemorrhage, acute infarction, or abnormal intracranial mass lesion. The ventricles are normal in size. There are likely changes of ocular lens replacement surgeries. Th e mastoid air cells are normal. SINUSES CT: There is mild mucosal thickening in right frontal sinus and the bilateral anterior ethmoi d sinuses. There is mild mucosal thickening in the maxillary sinuses. The sphenoid sinuses are clear. The nasal septum is at the midline. The ostiomeatal units are patent. IMPRESSION: 1. Normal brain. 2. Mild mucosal thickening in the paranasal sinuses. Reviewed, dictated and finalized at location A.
== END 2024-11-27 12:51 | disposition home or self-care (01) ==
LOC: MICIMG 12:51
PROVIDERS: PCP Nurse Practitioner Family; Visit Provider Nurse Practitioner Family
DX: R42 Dizziness and giddiness (principal); J31.0 Chronic rhinitis
CPT/HCPCS: 70450; 70486

== ENCOUNTER 2025-02-05 11:20 | Outpatient (NON) | payer MEDICARE, SELFPAY ==
--- OUTSIDE RECORDS SUMMARY | 2025-02-05 13:21 | XMS_ITS | Clinical Summary ---
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 Name Role Phone Unavailable Primary Care Provider Unavailabl e Social History Tobacco Use Types Packs/Day Years Used Date Smoking Tobacco: Never Assessed Sex and Gender Information Value Date Recorded Sex Assigned at Not on file Legal Sex Male 11:20 AM CDT Gender Identity Not on file Sexual Orientation Not on file Plan of Treatment Health Maintenance Due Date Last Done Comments DTAP/TDAP/TD VACCINES (1 - Tdap) 1962 PNEUMOCOCCAL VACCINE 50+ YEARS (1 of 1 - PCV) 04/25/19 93 ZOSTER VACCINE (1 of 2) 1993 RSV VACCINE (60+ or ) (1 - 1-dose 75+ series) 2018 INFLUENZA VACCINE (#1) 2024 Insurance MEDICARE PART A AND B [facility] [id number]
--- OUTSIDE RECORDS SUMMARY | 2025-02-05 13:21 | XMS_ITS | Clinical Summary ---
Author Organization [facility] Address [address] [place] [address] Care Team Providers Care Recruiting Internship Name Role Phone Beau Goodwin DO Primary Care Provider [phone] Trever Tineo MD Unavailable [phone] Allergies No known active allergies Medications atorvastatin 40 MG tablet Take 1 tablet (40 mg total) by mouth nightly at bedtime. Active carvedilol 12.5 MG tablet Take 1 tablet (12.5 mg total) by mouth 2 (two) times daily. Active doxazosin 2 MG tablet Take 1 tablet (2 mg total) by mouth nightly at bedtime. Active adalimumab 40 MG/0.8ML injection Inject 0.8 mLs (40 mg total) into the skin every 14 (fourteen) days. Active hydrALAZINE 10 MG tablet Take 1 tablet (10 mg total) by mouth 2 (two) times a day. Active azaTHIOprine 75 MG Tab Take 50 mg by mouth once. Active pioglitazone 15 MG tablet Take 1 tablet (15 mg total) by mouth daily. Active multiple vitamins-minera ls Cap Take 1 capsule by mouth daily. Active aspirin 81 MG chewable tablet Chew 1 tablet (81 mg total) by mouth daily. Active Cholecalciferol (VITAMIN D) 50 MCG (1999 UT) Tab Active valACYclovir 500 MG tablet TAKE 1 TABLET BY MOUTH EVERY DAY FOR 6 MONTHS TO PREVENT FLARES 10/21/2020 Active tamsulosin (FLOMAX) 0.4 MG Cap Take 1 capsule (0.4 mg total) by mouth daily. Active Family History Medical History Relation Comments Heart Disease Father Diabetes Mother Cancer Sister Relation Status Comments Father Mother Sister Social History Tobacco Use Types Packs/Day Years Used Date Smoking Tobacco: Never Smokeless Tobacco: Never Alcohol Use Standard Drinks/Week Comments Not Currently 0 (1 standard drink = 0.6 oz pur e alcohol) Sex and Gender Information Value Date Recorded Sex Assigned at Not on file Legal Sex Male 7:42 PM CDT Gender Identity Not on file Sexual Orientation Not on file Last Filed Vital Signs Vital Sign Reading Time Taken Comments Blood Pressure 128/73 02/14/2023 10:30 AM CDT Pulse 63 02/14/2023 10:30 AM CDT Temperature 36.2 C (97.1 F) 02/14/2023 10:04 AM CDT Respiratory Rate 22 02/14/2023 10:30 AM CDT Oxygen Saturation 95% 02/14/2023 10:30 AM CDT Inhaled Oxygen Concentration - - Weight 94.8 kg (209 lb) 02/08/2023 12:29 PM CDT Height 172.7 cm (5' 8 ) 02/08/2023 12:29 PM CDT Body Mass Index 31.78 02/08/2023 12:29 PM CDT Plan of Treatment Health Maintenance Due Date Last Done Comments DTaP, Tdap and Td Vaccines ( 1 - Tdap) 1962 Pneumococcal Vaccine: 50+ Years (1 of 2 - PCV) 1962 Zoster Vaccines (1 of 2) 1962 Annual Medicare Wellness Visit 2008 RSV Immunization or 60+ Years (1 - 1-dose 75+ series) 2018 COVID-19 Vaccine (4 2023-2 5 season) 2024 12/25/2020, 12/04/2020, 12/04/2020 Meningococcal B Vaccine Aged Out No l onger eligible based on patient's age to complete this topic Meningococcal Vaccine Aged Out No fátima chary eligible based on patient's age to complete this topic RSV Immunizations Under 20 Months Aged Out No longer eligible b ased on patient's age to complete this topic Insurance MEDICARE [facility] Advance Directives Documents on File Type Date Recorded 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
--- OUTSIDE RECORDS SUMMARY | 2025-02-05 13:21 | XMS_ITS | Clinical Summary ---
Author Organization [facility] [address] Address [address] [place] [address] Care Team Providers Care Bottling Equipment Sales Representative Name Role Phone Kye Pierce MD Primary Care Provider [phone] Allergies No known active allergies Medications iecaqjmt-jyu-RN-l ycopen-lutein (CENTRUM SILVER) 0.4-300-250 mg-mcg-mcg tablet take one daily 0 0 7 Active vit C-vit I-nbyoxo-bjb-om-3 (OCUVITE) 834-82-7-150 pk-xnho-kf-mg capsule take one daily 0 0 7 Active doxazosin (CARDURA) 2 mg tablet take 1 tablet by oral route every day 0 0 7 Active aspirin (ASPIRIN LOW DOSE) 81 mg tablet take 1 tablet by oral route every day 0 0 7 Active azaTHIOprine (IMURAN) 50 mg tabletIndications :kidney Take 1.5 tablets (75 mg total) by mouth every morning 9 Active adalimumab (HUMIRA PEN) 40 mg/0.8 mL pen injector kit Inject 0.8 mL (40 mg total) under the skin every 14 (fourteen) days Active valACYclovir (VALTREX) 500 mg tabletIndications :fever blister Take 1 tablet (500 mg total) by mouth as needed 9 Active pioglitazone (ACTOS) 15 mg tabletIndications :type 2 diabetes mellitus Take 1 tablet (15 mg total) by mouth nightly 0 Active hydrALAZINE (APRESOLINE) 10 mg tabletIndications :hypertension Take 1 tablet (10 mg total) by mouth 2 (two) times a day 0 Active cholecalciferol (VITAMIN D-3) 2000 unit capsuleIndication s:Vitamin D Deficiency Take 1 capsule (2,000 Units total) by mouth daily with lunch Active tamsulosin (FLOMAX) 0.4 mg extended release capsule 2 Active atorvastatin (LIPITOR) 40 mg tablet TAKE 1 TABLET BY MOUTH DAILY 90 tablet 3 4 Active carvediloL (COREG) 12.5 mg tabletIndications :Essential hypertension TAKE 1 TABLET BY MOUTH TWICE DAILY WITH MEALS 180 tablet 3 4 Active empagliflozin (JARDIANCE) 10 mg tablet Take 1 tablet (10 mg total) by mouth daily 30 tablet 11 5 Active Active Problems Problem Noted Date Diagnosed Date Sensorineural hearing loss (SNHL) of both ears 1 Sensation of fullness in left ear 08/07/2024 Encounter for surgical after care following surgery of circulatory system 08/30/2022 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 11/23/2021 Chronic kidney disease (CKD), stage V 11/04/2021 Overview (11/04/2021): Added automatically from request for surgery [id number] Glaucoma suspect of both eyes 11/06/2018 Pseudophakia of both eyes 11/06/2018 Exudative age-related macular degeneration 11/10 Hypertension 01/26/2011 Surgical History Surgery Date Site/Laterality Comments CATARACT EXTRACTION COLON SURGERY FOOT SURGERY 10/16/2020 - 10/15/2021 Left ROTATOR CUFF REPAIR 10/16/2001 - 10/15/2002 Right CORONARY ANGIOPLASTY WITH ST ENT PLACEMENT 10/16/2015 - 10/15/2016 SEPTOPLASTY HEMIGLOSSECTOMY Right Medical History Medical History Date Comments Myocardial infarction (HCC) Myoc ardial infarction Hypercholesterolemia High choles terol Hx Other Medical History of stro ke Hx Other Medical cataracts Hypertension Hypertension Hx Other Medical Right Hemicolec noelle Hx Other Medical Cataract Remova l Hx Other Medical Stent placement Macular degeneration Cataract removed Diabetes mellitus (HCC) Chronic kidney disease Allergic rhinitis Tinnitus Family History Medical History Relation Name Comments Heart attack Father Corky Hickey Myocardial inf arction; Cause of : Myocardial infarction Heart disease Father Corky Hickey Diabetes Mother Magui Heart disease Mother Magui Cardiovascular disease; Cause of : Cardiovascular disease Diabetes Other 1 Family history of Diabetes mellitus; Hypertension Other 2 Family history of Hypertension; Stroke Other 3 Family history of Stroke; Cancer Sister 3 Rosario Hickey Cancer, unkno wn; Cause of : Cancer, unknown Other Sister 4 Alive and well; Anesthesia problems Neg Hx Relation Name Status Comments Father Corky Hickey (Age 48) Mother Magui (Age 77) Other 1 Other 2 Other 3 Sister 1 (Age 65) Sister 2 Alive Sister 3 Rosario Hickey Sister 4 Social History Tobacco Use Types Packs/Day Years Used Date Smoking Tobacco: Never Smokeless Tobacco: Never Tobacco Cessation:Counseling Given: Not Answered Alcohol Use Standard Drinks/Week Comments No 0 (1 standard drink = 0.6 oz pur e alcohol) AUDIT-C Answer Date Recorded Q1: How often do you have a drink containing alc ohol? Never 11/19/2021 Average Number of Drinks Not on file 022 Q3: How often do you have si x or more drinks on one occasion? Never 11/19/2021 Sex and Gender Information Value Date Recorded Sex Assigned at Not on file Legal Sex Male 12:44 PM BOW MAKER PRODUCTION Gender Identity Male 11/02/2020 9:25 PM BOW MAK[employer] Sexual Orientation Bisexual 11/02/2020 9: 25 PM BOW MAKER [employer] Obstetrics History Last Filed Vital Signs Vital Sign Reading Time Taken Comments Blood Pressure 130/60 11/06/2024 11:06 AM BOW MAKER PRODUCTION Pulse 70 11/06/2024 11:06 AM BOW MAKER PRODUCTION Temperature 36.6 C (97.8 F) 08/30/2022 10:20 AM BOW MAKER PRODUCTION Respiratory Rate 18 08/07/2024 3:46 PM CDT Oxygen Saturation 97% 11/06/2024 11:06 AM BOW MAKER PRODUCTION Inhaled Oxygen Concentration - - Weight 97.5 kg (215 lb) 11/06/2024 11:06 AM BOW MAKER PRODUCTION Height 172.7 cm (5' 8 ) 11/06/2024 11:06 AM BOW MAKER PRODUCTION Body Mass Index 32.69 11/06/2024 11:06 AM BOW MAKER PRODUCTION Plan of Treatment Health Maintenance Due Date Last Done Comments Depression Screening 1945 DTaP/Tdap/Td Vaccine (1 - Tdap) 1954 Hepatitis B Screening 1961 Pneumococcal vaccine 65+ (1 of 2 - PCV) 1962 Well Visit 65+ 2008 Fall Risk Assessment 11/30/2022 11/30/2021 Covid-19 Vaccine (4 - 2023-2 5 season) 2024 08/16/2021, 12/25/2020, 12/04/2020, Additional history exists Influenza Vaccine (Season Ended) 2025 08/10/20, 08/09/2020 Zoster Vaccine Completed 10/18/2021, 07/14/2021 Insurance [facility] [place] [address] MEDICARE [facility] MEDICARE [facility] MEDICARE Advance Directives For more information, please contact: [phone] Documents on File Type Date Recorded Patient Cardiac Technologist Expl anation ADVANCE DIRECTIVE 11/30/2021 7:07 AM ADVANCE DIRECTIVE 02/24/2013 12:00 AM [employer] ENG[employer] SPECIALIST FINANCIAL/MEDICAL Care Teams Bottling Equipment Sales Representative Relationship Specialty Start Date End Date Kye Pierce MD PCP - General Family Practice 08/31/23
--- OUTSIDE RECORDS SUMMARY | 2025-02-05 13:21 | XMS_ITS | Encounter Summary ---
Author Organization [facility] Address [address] [place] [address] Care Team Providers Care Roll Plugger Machine Operator Name Role Phone Trever Tineo MD Primary Care Provider + Beau Goodwin DO Primary Care Provider [phone] Trever Tineo MD Unavailable [phone] Encounter Details Date Type Department Care Team (Late st Contact Info) Description 11/09/[address] [facility] [place] [address] Amol Marquez MD [address] [id number] Social History Tobacco Use Types Packs/Day Years Used Date Smoking Tobacco: Never Smokeless Tobacco: Never Alcohol Use Standard Drinks/Week Comments Not Currently 0 (1 standard drink = 0.6 oz pur e alcohol) Sex and Gender Information Value Date Recorded Sex Assigned at Not on file Legal Sex Male 7:42 PM CDT Gender Identity Not on file Sexual Orientation Not on file COVID-19 Exposure Response Date Recorded In the last month, have you been in contact with someone who was confirmed or suspected to have Coronavirus / COVID-19? No / Unsure 11/12/2020 10:17 AM SENIOR MAINFRAME DEVELOPER documented as of this encounter Plan of Treatment Not on file documented as of this encounter Results * PRE-SURGICAL/PRE-PROCEDURE CORONAVIRUS (COVID 19) (11/09/2020 10:25 AM SENIOR MAINFRAME DEVELOPER) CORONAVIRUS SARS COV 2 PCR (RESP) NOT DETECTED NOT DETECTED 11/10/2020 11:42 PM [facility] Comment: A Not Detected (negative) test result for this test means that SARS- CoV-2 RNA was not present in the specimen above the limit of detection. A negative result does not rule out the possibility of COVID-19 and should not be used as the sole basis for treatment or patient management decisions. If COVID-19 is still suspected, based on exposure history together with other clinical findings, re-testing should be considered in consultation with public health authorities. Laboratory test results should always be considered in the context of clinical observations and epidemiological data in making a final diagnosis and patient management decisions. Please review the Fact Sheets and FDA authorized labeling available for health care providers and patients using the following websites: [email or web address]/Covid-19/HCP/NAAT/fact-sheet2 [email or web address]-19/Patients/NAAT/ fact-sheet2 This test has been authorized by the FDA under an Emergency Use Authorization (EUA) for use by authorized laboratories. Due to the current public health emergency, [facility] is receiving a high volume of samples from a wide variety of swabs and media for COVID-19 testing. In order to serve patients during this public health crisis, samples from appropriate clinical sources are being tested. Negative test results derived from specimens received in non-commercially manufactured viral collection and transport media, or in media and sample collection kits not yet authorized by FDA for COVID-19 testing should be cautiously evaluated and the patient potentially subjected to extra precautions such as additional clinical monitoring, including collection of an additional specimen. Methodology: Nucleic Acid Amplification Test (NAAT) includes RT-PCR or TMA Additional information about COVID-19 can be found at the [facility] website: [email or web address][email or web address]. Test performed at [facility] [address] [place] [address] Director: WOODROW RIVERA DO,MPH FIRST TEST YES 11/09/2020 11:10 AM [facility] EMPLOYED IN [facility] NO 11/09/2020 11:10 AM SENIOR MAINFRAME DEVELOPER [facility] SYMPTOMATIC DEFINED BY CDC NO 11/09/2020 11:10 AM SENIOR MAINFRAME DEVELOPER [facility] DATE OF SYMPTOM ONSET UNKNOWN 11/09/2020 12:05 PM SENIOR MAINFRAME DEVELOPER [facility] HOSPITALIZATION STATUS NO 11/09/2020 11:10 AM SENIOR MAINFRAME DEVELOPER [facility] PATIENT IN ICU NO 11/09/2020 11:10 AM SENIOR MAINFRAME DEVELOPER [facility] RESIDENT OF [facility] NO 11/09/2020 11:10 AM SENIOR MAINFRAME DEVELOPER [facility] PATIENT'S RACE WHITE OR 11/09/2020 11:10 AM SENIOR MAINFRAME DEVELOPER [facility] ETHNICITY NONHISPANIC 11/09/2020 11:10 AM SENIOR MAINFRAME DEVELOPER [facility] SOURCE (QST) NASOPHARYNGEAL SWAB 11/09/2020 11:10 AM SENIOR MAINFRAME DEVELOPER [facility] NASOPHARYNGEAL SWAB / Unknown 11/09/2020 10:25 AM SENIOR MAINFRAME DEVELOPER us Amol Marquez MD MICROBIOLOGY - GENERAL PSYCHIATRIC Final Result [facility] [address] [place] [address], [facility] [address] [address], documented in this encounter Visit Diagnoses Diagnosis Crohn's disease (CMS/HCC HHS/HCC)- Primary Regional enteritis of unspecified site documented in this encounter Additional Health Concerns Infection Onset Date Last Indicated Resolved Time COVID-19 Rule Out 11/09/2020 11/09/2020 11/10/2020 11:42 PM SENIOR MAINFRAME DEVELOPER documented as of this encounter Care Teams Roll Plugger Machine Operator Relationship Specialty Start Date End Date Trever Tineo MD [address] [facility] [address] [address] PCP - General 07/24/13 11/09/20 Beau Goodwin DO [address] [id number] PCP - General INTERNAL MEDICINE 11/10/20 Trever Tineo MD [facility] [address] [address] 11/10/20 documented as of this encounter
--- OUTSIDE RECORDS SUMMARY | 2025-02-05 13:21 | XMS_ITS | Clinical Summary ---
Author Organization [facility] Address [address] [facility] [place] [address] Care Team Providers Care Supervisor Delivery Department Name Role Phone Beau Goodwin Primary Care Provider [phone] Source Comments [facility],non-owned Affiliates and Associated Physician Practices is amultiple site organization consisting of ambulatory clinics and hospital sitesin [place], [place], [place] and [place]. This disclosure is being madepursuant to the Care Everywhere program and may not contain all information available regarding this patient. Last updated 18.[facility] Allergies No known active allergies Medications * Be aware that medications may not be up to date on this document. Alwaysverify current medications with the patient. aspirin (ASPIRIN) 81 MG chew tablet Take 81 mg by mouth once daily Active azaTHIOprine 75 MG Active carvedilol (COREG) 12.5 MG tablet Take 12.5 mg by mouth 2 times daily 0 Active doxazosin (CARDURA) 2 MG tablet Take 2 mg by mouth once daily Active hydrALAZINE (APRESOLINE) 10 MG tablet Take 10 mg by mouth 0 Active nitroGLYCERIN (NITROSTAT) 0.4 MG tablet Dissolve 0.4 mg under the tongue Active pioglitazone (ACTOS) 15 MG tablet 1 Active atorvastatin (LIPITOR) 40 MG tablet Take 40 mg by mouth as directed Active adalimumab (HUMIRA) 40 MG/0.8ML injection Inject 40 mg subcutaneously every 14 days Active valACYclovir (VALTREX) 500 MG tablet Take 500 mg by mouth once daily Active Cholecalcifero l (VITAMIN D3) 10 MCG (400 UNIT) tablet Take 2,000 Units by mouth once daily Active Active Problems Problem Noted Date Diagnosed Date CKD (chronic kidney disease) stage 5, GFR less than 15 ml/min 03/02/2021 Social History Tobacco Use Types Packs/Day Years Used Date Smoking Tobacco: Never Smokeless Tobacco: Never Alcohol Use Standard Drinks/Week Comments Not Currently 0 (1 standard drink = 0.6 oz pur e alcohol) Sex and Gender Information Value Date Recorded Sex Assigned at Not on file Legal Sex Male 6:42 AM DISK SANDER Gender Identity Not on file Sexual Orientation Not on file Last Filed Vital Signs Vital Sign Reading Time Taken Comments Blood Pressure 138/61 03/26/2021 10:58 AM CDT Pulse 71 03/26/2021 10:58 AM CDT Temperature 36.6 C (97.8 F) 03/26/2021 10:58 AM CDT Respiratory Rate 16 03/26/2021 10:58 AM CDT Oxygen Saturation 97% 03/26/2021 10:58 AM CDT Inhaled Oxygen Concentration - - Weight 93.9 kg (207 lb) 03/26/2021 10:58 AM CDT Height 172.7 cm (5' 8 ) 03/26/2021 10:58 AM CDT Body Mass Index 31.47 03/26/2021 10:58 AM CDT Plan of Treatment Health Maintenance Due Date Last Done Comments DTAP/TDAP/TD VACCINES (1 - Tdap) 1962 PNEUMOCOCCAL VACCINE 50+ (1 of 1 - PCV) 1993 ZOSTER VACCINE (1 of 2) 1993 Respiratory Syncytial Virus (RSV) Vaccine Pt: or over 60 yrs (1 - 1-dose 75+ series) 2018 COVID-19 VACCINE (2 - 2023-2 5 season) 2024 12/04/2020 DEPRESSION SCREENING 10/16/2024 INFLUENZA VACCINE (Season Ended) 2025 08/09/20 20 HEPATITIS B VACCINE Aged Out No longe r eligible based on patient's age to complete this topic HIB VACCINE Aged Out No longer eligi ble based on patient's age to complete this topic HPV VACCINE Aged Out No longer eligi ble based on patient's age to complete this topic MENINGOCOCCAL (Group B) VACC INE SHARED DECISION-MAKING Aged Out No longer eligibl e based on patient's age to complete this topic MENINGOCOCCAL GROUPS A/C/Y/W VACCINE Aged Out No longer eligible b ased on patient's age to complete this topic Insurance MEDICARE [facility] Care Teams Supervisor Delivery Department Relationship Specialty Start Date End Date Beau Goodwin DO [address] [place], [place] [id number] PCP - General 04/30/21
--- OUTSIDE RECORDS SUMMARY | 2025-02-05 13:21 | XMS_ITS | Clinical Summary ---
Author Organization [facility] Address [address] [place] [address] Phone Care Team Providers Care Community Organization Aide Name Role Phone Beau Goodwin Primary Care Provider [phone] Allergies No known active allergies Medications Multiple Vitamins-Minera ls (MULTIVITAMIN ADULT) tablet 1 daily 0 08/24/2018 Activ e doxazosin (CARDURA) 2 MG tablet 1 daily 0 08/24/2018 Active Multiple Vitamins-Minera ls (PRESERVISION AREDS 2) capsule 1 daily 0 08/24/2018 Active azaTHIOprine (IMURAN) 50 MG tablet 1.5 daily 0 08/27/2018 Active carvedilol (COREG) 12.5 MG tablet 1 bid 0 08/24/2018 Active adalimumab (HUMIRA) 40 MG/0.8ML Prefilled Syringe Kit Inject 40 mg under the skin Active aspirin 81 MG chewable tablet 81 mg 01/04/2017 Act neema pioglitazone (ACTOS) 15 MG tablet Take 15 mg by mouth 1 (one) time each day Active valACYclovir (VALTREX) 500 MG tablet TK 1 T PO QD PRF COLD SORE 09/27/2019 Active atorvastatin (LIPITOR) 40 MG tablet 08/15/2019 Active hydrALAZINE (APRESOLINE) 10 MG tablet 01/09/2020 Active triamcinolone (KENALOG) 0.1 % ointment 01/07/2020 Active pantoprazole (PROTONIX) 20 MG EC tablet TK 1 T PO QAM 04/28/2020 Active Cholecalciferol (Vitamin D3) 50 MCG (1999 UT) tablet Take by mouth Active nitroglycerin (NITROSTAT) 0.[address] 0.4 mg under the tongue Active HYDROcodone-lacie taminophen (NORCO) 5-325 MG per tablet Take 1-2 tablets by mouth every 6 (six) hours if needed for pain 02/20/2021 Active doxycycline (MONODOX) 50 MG capsule Take 50 mg by mouth 1 (one) time each day Take with at least 8 ounces (large glass) of water, do not lie down for 30 minutes after Active imiquimod (ALDARA) 5 % cream 08/11/2021 Active tamsulosin (FLOMAX) 0.4 MG 24 hr capsule Take 0.4 mg by mouth 1 (one) time each day Active Active Problems Problem Noted Date Diagnosed Date Acute kidney failure with lesion of tubular necr osis 09/14/2019 Glaucoma suspect 11/06/2018 Pseudophakia 11/06/2018 Chronic kidney disease stage 4 08/27/2018 Crohn's disease without complication 08/27/2018 Hyperlipidemia 08/27/2018 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, unsp ecified eye 11/10/2015 Hypertension 01/26/2011 Immunizations Immunization Administration Dates Next Due Fluzone High-Dose 08/10/2020 Influenza TIV (IM) 12/30/2021(Deferred: Patient Refused),08/09/2020 Moderna Sars-cov-2 Vaccination 12/04/2020 Family History Medical History Relation Comments Kidney disease Neg Hx Social History Tobacco Use Types Packs/Day Years Used Date Smoking Tobacco: Never Smokeless Tobacco: Never Alcohol Use Standard Drinks/Week Comments No 0 (1 standard drink = 0.6 oz pur e alcohol) Sex and Gender Information Value Date Recorded Sex Assigned at Male 01/21/2020 4:50 PM MDT Legal Sex Male 8:15 AM [facility] Gender Identity Male 01/21/2020 4:50 PM MDT Sexual Orientation Not on file Last Filed Vital Signs Vital Sign Reading Time Taken Comments Blood Pressure 122/70 05/12/2022 9:18 AM CDT Pulse 72 05/12/2022 9:18 AM CDT Temperature 36.2 C (97.2 F) 05/12/2022 9:18 AM CDT Respiratory Rate - - Oxygen Saturation - - Inhaled Oxygen Concentration - - Weight 94.8 kg (209 lb) 05/12/2022 9:18 AM CDT Height 172.7 cm (5' 8 ) 05/12/2022 9:18 AM CDT Body Mass Index 31.78 05/12/2022 9:18 AM CDT Plan of Treatment Health Maintenance Due Date Last Done Comments Pneumococcal PPSV23/PCV13 65 + Years / Low and Medium Risk (1 of 4 - PCV) 1993 COVID-19 Vaccine ( - season) 2024 12/25/2020, 12/04/2020, 12/04/2020 Influenza Vaccine (Season Ended) 2025 08/09/[address] [facility] Care Teams Community Organization Aide Relationship Specialty Start Date End Date Beau Goodwin DO [address] [place] [address] PCP - General Internal Medicine 05/20/19
--- OUTSIDE RECORDS SUMMARY | 2025-02-05 13:21 | XMS_ITS | Clinical Summary ---
Author Organization [facility] Care Team Providers Care Apartment Community Manager Name Role Phone Unavailable Primary Care Provider Unavailabl e Immunizations Immunization Administration Dates Next Due Covid-19, Mrna, Lnp-s, Pf, 30 Mcg/0.3 Ml Dose (P fizer) 12/25/2020,12/04/2020 Social History Tobacco Use Types Packs/Day Years Used Date Smoking Tobacco: Never Assessed Sex and Gender Information Value Date Recorded Sex Assigned at Not on file Legal Sex Male 12:12 PM CDT Gender Identity Not on file Sexual Orientation Not on file Plan of Treatment Health Maintenance Due Date Last Done Comments Hepatitis C Virus (HCV) Screening 1945 TdaP Immunization 1945 Pneumococcal Immunization (5 0+ years) (1 of 1 - PCV) 1993 Zoster Immunization (1 of 2) 1993 Respiratory Syncytial Virus (RSV) Immunization (Adult) (1 - 1-dose 75+ series) 2018 Influenza Immunization (#1) 2024 08/10/2020 SARS-COV-2 Immunization ( season) 2024 12/25/2020, 12/04/2020 Hepatitis B Immunization Aged Out No longer eligible based on patient's age to complete this topic Meningococcal Immunization (ACWY) Aged Out No longer eligible b ased on patient's age to complete this topic Rotavirus Immunization Aged Out No lo nger eligible based on patient's age to complete this topic
--- OUTSIDE RECORDS SUMMARY | 2025-02-05 13:21 | XMS_ITS | Referral Summary ---
Author Organization [facility] [address] Address [address] [place] [address] Care Team Providers Care Agricultural Equipment Salesperson Name Role Phone Kye Pierce MD Primary Care Provider [phone] Allergies No known active allergies Medications gxefpxov-sbz-VD-l ycopen-lutein (CENTRUM SILVER) 0.4-300-250 mg-mcg-mcg tablet take one daily 0 0 7 Active vit C-vit L-tzsqrq-ezi-om-3 (OCUVITE) 137-51-5-150 vh-vclh-yh-mg capsule take one daily 0 0 7 [...] (11/04/2021): Added automatically from request for surgery [id number] Glaucoma suspect of both eyes 11/06/2018 Pseudophakia of both eyes 11/06/2018 Exudative age-related macular degeneration 11/10 Hypertension 01/26/2011 Social History Tobacco Use Types Packs/Day Years [...] on file Legal Sex Male 12:44 PM SALES AND SUPPORT CENTER AGENT Gender Identity Male 11/02/2020 9:25 PM SALES [employer] SUPPORT CENTER AGENT Sexual Orientation Bisexual 11/02/2020 9: 25 PM SALES AND SUPPORT CENTER AGENT Last Filed Vital Signs Vital Sign Reading Time Taken Comments Blood Pressure 130/60 11/06/2024 11:06 AM SALES AND SUPPORT CENTER AGENT Pulse 70 11/06/2024 11:06 AM SALES AND SUPPORT CENTER AGENT Temperature 36.6 C (97.8 F) 08/30/2022 10:20 AM SALES AND SUPPORT CENTER AGENT Respiratory Rate 18 08/07/2024 3:46 PM CDT Oxygen Saturation 97% 11/06/2024 11:06 AM SALES AND SUPPORT CENTER AGENT Inhaled Oxygen Concentration - - Weight 97.5 kg (215 lb) 11/06/2024 11:06 AM SALES AND SUPPORT CENTER AGENT Height 172.7 cm (5' 8 ) 11/06/2024 11:06 AM SALES AND SUPPORT CENTER AGENT Body Mass Index 32.69 11/06/2024 11:06 AM SALES AND SUPPORT CENTER AGENT Plan of Treatment Not on file Insurance [facility] MEDICARE MEDICARE [facility] MEDICARE [facility] MEDICARE [facility] Address: [facility] [address] [place] [address] Advance Directives For more information, please contact: [phone] Documents on File Type Date Recorded Patient Director Of Field Service Expl anation ADVANCE DIRECTIVE 11/30/2021 7:07 AM ADVANCE DIRECTIVE 02/24/2013 12:00 AM [employer] FINANCIAL/MEDICAL Care Teams Agricultural Equipment Salesperson Relationship Specialty Start Date End Date Kye Pierce MD PCP - General Family Practice 08/31/23
== END 2025-02-05 11:21 | disposition home or self-care (01) ==
LOC: ANHLAB 11:22
PROVIDERS: PCP Nurse Practitioner Family; Visit Provider Orthopaedic Surgery
DX: B99.9 Unspecified infectious disease (principal)
CPT/HCPCS: 87070; 87075; 87181; 87205

== ENCOUNTER 2025-02-06 03:36 | Day surgery (SDC) | payer MEDICARE, SELFPAY ==
--- NOTE | 2025-02-05 14:37 | PC.NURSE ---
Report to the Outpatient Waiting Room, entrance under the green pavilion located off [facility], at time _0830 on date _02/06/25 . Planned Procedure Time: _1030 .? Time changes happen often and if your time is changed the preop area will call you the afternoon before. - You and your visitor will be asked to self-screen and do not enter if you have any COVID symptoms. Please call surgeon if you need to reschedule. - A mask is optional within the hospital at this time. Patients may have clear liquids (water, carbonated beverages, clear teas, apple juice) until 3 hours prior to surgery with a maximum of 20 ounces. - No food from midnight until time of surgery and no smoking, or chewing tobacco (or any form of nicotine). No chewing gum, candy or mints. - Infants may have breast milk until 4 hours before surgery, formula 6 hours prior to surgery. - Children will be allowed to drink immediately following surgery.? If applicable, please bring a bottle or sippy cup to assist with drinking. Juice, water, soda, and popsicles are readily available.? For infants on formula, please bring formula the day of surgery.? Pacifiers are allowed. Take only the following medications with a SIP of water on the morning of surgery: __Hydralazine, Coreg DO NOT STOP ANY OF YOUR OTHER PRESCRIPTION MEDICATIONS PRIOR TO SURGERY EXCEPT THE FOLLOWING Hold all vitamins and supplements for 3 days per anesthesiologist. Medications to discontinue per physician __N/A Date to take last dose_N/A Please no make-up, nail khmer, hairspray, perfume, deodorant, or body powder the day of surgery.? No jewelry (including any body piercings) or valuables the day of surgery, leave them at home.? Please take a shower or bath the night before, or the morning of, surgery with an antibacterial soap.? Wear comfortable, loose fitting clothing.? Children are encouraged to wear pajamas. - Jewelry must be removed prior to entering the operating room.? Rings and piercings that are not removed may be cut off. - The hospital will not accept responsibility for valuables.? - Please leave all valuables, including medications, at home the day of surgery. If you are going home after surgery, a licensed driver courier must drive you home.? - NO public transportation without another adult if you receive anesthesia. - We recommend that an adult stay with you for 24 hours following discharge. - We also recommend that you do not drive, make important decision, drink alcoholic beverages, or take any drugs that were not prescribed by your health care provider for at least 24 hours after your discharge time. For Pediatric surgeries, we recommend two adults accompany the child home. Follow any additional instructions given to you from your surgeon. Telephone instructions given to Valentina and asked if any additional questions and then verbalized understanding. Patient advised to call surgeon office or pre surgery nurse liaison [phone] if any additional questions.
[2025-02-05 14:44] VITALS: BMI 33.4
--- OUTSIDE RECORDS SUMMARY | 2025-02-06 03:40 | XMS_ITS | Clinical Summary ---
Author Organization [facility] Address [address] [place] [address] Phone Care Team Providers Care Jeweler Apprentice Name Role Phone Beau Goodwin Primary Care Provider [phone] Allergies No known active allergies Medications Multiple [...] Hyperlipidemia 08/27/2018 Atherosclerotic heart diseas e of [place] coronary artery without angina pectoris 08/27/2018 Exudative [...] PM MDT Legal Sex Male 8:15 AM [facility] Gender Identity Male 01/21/2020 4:50 PM MDT [...] (Season Ended) 2025 08/09/20 20 Insurance MEDICARE [facility] Care Teams Jeweler Apprentice Relationship Specialty Start Date End Date Beau Goodwin DO [address] [place] [id number] PCP - General Internal Medicine 05/20/19
--- OUTSIDE RECORDS SUMMARY | 2025-02-06 03:40 | XMS_ITS | Clinical Summary ---
Author Organization [facility] Address [address] [place] [address] Care Team Providers Care Car Dumper Operator Helper Name Role Phone Beau Goodwin DO Primary Care Provider [phone] Trever Tineo MD Unavailable [phone] Allergies No known active allergies Medications atorvastatin [...] age to complete this topic Insurance MEDICARE [facility] Advance Directives Documents on File Type Date Recorded Patient Air Twist Operator Expl anation Power of Animal Impersonator 02/14/2023 POA 2022 Care Teams Car Dumper Operator Helper Relationship Specialty Start Date End Date Beau Goodwin DO [address] [address] PCP - General INTERNAL MEDICINE 11/10/20 Trever Tineo MD [address] [facility] [address] [place] [address] 11/10/20
--- OUTSIDE RECORDS SUMMARY | 2025-02-06 03:40 | XMS_ITS | Referral Summary ---
Author Organization [facility] [place] [address] Address [address] [place] [address] Care Team Providers Care Manager Web Application Name Role Phone Kye Pierce MD Primary Care Provider [phone] Allergies No known active allergies Medications pegnupuy-dcw-AI-l ycopen-lutein (CENTRUM SILVER) 0.4-300-250 mg-mcg-mcg tablet take one daily 0 0 7 Active vit C-vit J-txinru-puu-om-3 (OCUVITE) 316-00-8-150 oj-shev-wc-mg capsule take one daily 0 0 7 [...] (11/04/2021): Added automatically from request for surgery [id number] Glaucoma suspect of both eyes 11/06/2018 Pseudophakia [...] on file Legal Sex Male 12:44 PM RV REPAIR TECHNICIAN Gender Identity Male 11/02/2020 9:25 PM RV REPAIR TECHNICIAN Sexual Orientation Bisexual 11/02/2020 9: 25 PM RV REPAIR TECHNICIAN Last Filed Vital Signs Vital Sign Reading Time Taken Comments Blood Pressure 130/60 11/06/2024 11:06 AM RV REPAIR TECHNICIAN Pulse 70 11/06/2024 11:06 AM RV REPAIR TECHNICIAN Temperature 36.6 C (97.8 F) 08/30/2022 10:20 AM RV REPAIR TECHNICIAN Respiratory Rate 18 08/07/2024 3:46 PM CDT Oxygen Saturation 97% 11/06/2024 11:06 AM RV REPAIR TECHNICIAN Inhaled Oxygen Concentration - - Weight 97.5 kg (215 lb) 11/06/2024 11:06 AM RV REPAIR TECHNICIAN Height 172.7 cm (5' 8 ) 11/06/2024 11:06 AM RV REPAIR TECHNICIAN Body Mass Index 32.69 11/06/2024 11:06 AM RV REPAIR TECHNICIAN Plan of Treatment Not on file Insurance [facility] MEDICARE MEDICARE [facility] MEDICARE [facility] MEDICARE Advance Directives For more information, please contact: [phone] Documents on File Type Date Recorded Patient Respiratory Care Faculty Expl anation ADVANCE DIRECTIVE 11/30/2021 7:07 AM ADVANCE DIRECTIVE 02/24/2013 12:00 AM VALERIO R OF [employer]AR[employer] INSTRUCTOR FINANCIAL/MEDICAL Care Teams Manager Web Application Relationship Specialty Start Date End Date Kye Pierce MD PCP - General Family Practice 08/31/23
--- OUTSIDE RECORDS SUMMARY | 2025-02-06 03:40 | XMS_ITS | Clinical Summary ---
[facility] Address [address] [place] [address] [place] [address] Care Team Providers Care Reimbursement Counselor Name Role Phone Unavailable Primary Care Provider [...] 2024 Insurance MEDICARE PART A AND B [facility] [id number]
--- OUTSIDE RECORDS SUMMARY | 2025-02-06 03:40 | XMS_ITS | Clinical Summary ---
Author Organization [facility] [employer] Address [address] [place] [address] Care Team Providers Care Wood Casket Assembler Name Role Phone Beau Goodwin Primary Care Provider [phone] Source Comments [facility] [employer],non-owned Affiliates and Associated Physician Practices is amultiple site organization consisting of ambulatory clinics and hospital sitesin [place], [place], [place] and [place]. This disclosure is being madepursuant to the Care Everywhere program and may not contain all information available regarding this patient. Last updated 18.[facility] [employer] Allergies No known active allergies Medications * [...] on file Legal Sex Male 6:42 AM BORDER PATROL OFFICER Gender Identity Not on file Sexual Orientation [...] age to complete this topic Insurance MEDICARE [facility] MEDICARE Care Teams Wood Casket Assembler Relationship Specialty Start Date End Date Beau Goodwin DO [address] [place], [place] [id number] PCP - General 04/30/21
--- OUTSIDE RECORDS SUMMARY | 2025-02-06 03:40 | XMS_ITS | Clinical Summary ---
Author Organization [facility] Care Team Providers Care Vendor Management Consultant Name Role Phone Unavailable Primary Care Provider [...]
--- OUTSIDE RECORDS SUMMARY | 2025-02-06 03:40 | XMS_ITS | Encounter Summary ---
Author Organization [facility] Address [address] [place] [address] Care Team Providers Care Boiler Setter Name Role Phone Trever Tineo MD Primary Care Provider + Beau Goodwin DO Primary Care Provider [phone] Trever Tineo MD Unavailable [phone] Encounter Details Date Type Department Care Team (Late st Contact Info) Description 11/09/2020 Prep for Procedure [facility] [place] [address] Amol Marquez MD [address] [id number] Social History Tobacco Use Types Packs/Day Years [...] COVID-19? No / Unsure 11/12/2020 10:17 AM [employer] documented as of this encounter Plan of Treatment Not on file documented as of this encounter Results * PRE-SURGICAL/PRE-PROCEDURE CORONAVIRUS (COVID 19) (11/09/2020 10:25 AM [employer]) CORONAVIRUS SARS COV 2 PCR (RESP) NOT DETECTED NOT DETECTED 11/10/2020 11:[address] [facility] Comment: A Not Detected (negative) test result [...] providers and patients using the following websites: https://www.Baofeng.Barburrito/home/Covid-19/HCP/NAAT/fact-sheet2 https://www.Baofeng.Barburrito/home/Covid-19/Patients/NAAT/ fact-sheet2 This test has been authorized by the FDA under an Emergency Use Authorization (EUA) for use by authorized laboratories. Due to the current public health emergency, [facility] is receiving a high volume of samples [...] about COVID-19 can be found at the [facility] website: www.2Nite2Nite.net.Barburrito/Covid19. Test performed at [facility] [address] [place] [address] Director: WOODROW RIVERA DO,MPH FIRST TEST YES 11/09/2020 11:10 AM [facility] EMPLOYED IN [facility] NO 11/09/2020 11:10 AM [employer] [facility] SYMPTOMATIC DEFINED BY CDC NO 11/09/2020 11:10 AM [employer] [facility] DATE OF SYMPTOM ONSET UNKNOWN 11/09/2020 12:05 PM [employer] [facility] HOSPITALIZATION STATUS NO 11/09/2020 11:10 AM [employer] [facility] PATIENT IN ICU NO 11/09/2020 11:10 AM [employer] [facility] RESIDENT OF [facility] NO 11/09/2020 11:10 AM [employer] [facility] PATIENT'S RACE WHITE OR 11/09/2020 11:10 AM [employer] [facility] ETHNICITY NONHISPANIC 11/09/2020 11:10 AM [employer] [facility] SOURCE (QST) NASOPHARYNGEAL SWAB 11/09/2020 11:10 AM [employer] [facility] NASOPHARYNGEAL SWAB / Unknown 11/09/2020 10:25 AM [employer] us Amol Marquez MD MICROBIOLOGY - [facility] Final Result [facility] [address] [place] [address], [facility] [address] [address], documented in this encounter Visit Diagnoses Diagnosis Crohn's disease (CMS/HCC HHS/HCC)- Primary Regional enteritis of unspecified site documented in this encounter Additional Health Concerns Infection Onset Date Last Indicated Resolved Time COVID-19 Rule Out 11/09/2020 11/09/2020 11/10/2020 11:42 PM [employer] documented as of this encounter Care Teams Boiler Setter Relationship Specialty Start Date End Date Trever Tineo MD [address] [facility] [address] [address] PCP - General 07/24/13 11/09/20 Beau Goodwin DO [address] [id number] PCP - General INTERNAL MEDICINE 11/10/20 Trever Tineo MD [facility] [address] [address] 11/10/20 documented as of this encounter
--- OUTSIDE RECORDS SUMMARY | 2025-02-06 03:40 | XMS_ITS | Clinical Summary ---
Author Organization [facility] [address] Address [address] [place] [address] Care Team Providers Care Computer Typesetter Keyliner Name Role Phone Kye Pierce MD Primary Care Provider [phone] Allergies No known active allergies Medications xhjayzej-pvn-EX-l ycopen-lutein (CENTRUM SILVER) 0.4-300-250 mg-mcg-mcg tablet take one daily 0 0 7 Active vit C-vit L-wxjtnt-rom-om-3 (OCUVITE) 977-35-6-150 ma-pwku-yg-mg capsule take one daily 0 0 7 [...] (11/04/2021): Added automatically from request for surgery [id number] Glaucoma suspect of both eyes 11/06/2018 Pseudophakia [...] on file Legal Sex Male 12:44 PM ELECTRODYNAMICIST Gender Identity Male 11/02/2020 9:25 PM ELECTRODYNAMICIST Sexual Orientation Bisexual 11/02/2020 9: 25 PM ELECTRODYNAMICIST Obstetrics History Last Filed Vital Signs Vital Sign Reading Time Taken Comments Blood Pressure 130/60 11/06/2024 11:06 AM ELECTRODYNAMICIST Pulse 70 11/06/2024 11:06 AM ELECTRODYNAMICIST Temperature 36.6 C (97.8 F) 08/30/2022 10:20 AM ELECTRODYNAMICIST Respiratory Rate 18 08/07/2024 3:46 PM CDT Oxygen Saturation 97% 11/06/2024 11:06 AM ELECTRODYNAMICIST Inhaled Oxygen Concentration - - Weight 97.5 kg (215 lb) 11/06/2024 11:06 AM ELECTRODYNAMICIST Height 172.7 cm (5' 8 ) 11/06/2024 11:06 AM ELECTRODYNAMICIST Body Mass Index 32.69 11/06/2024 11:06 AM ELECTRODYNAMICIST Plan of Treatment Health Maintenance Due Date [...] 08/09/2020 Zoster Vaccine Completed 10/18/2021, 07/14/2021 Insurance [facility] MEDICARE MEDICARE [facility] MEDICARE [facility] MEDICARE Advance Directives For more information, please contact: [phone] Documents on File Type Date Recorded Patient Automotive Tire Worker Expl anation ADVANCE DIRECTIVE 11/30/2021 7:07 AM ADVANCE DIRECTIVE 02/24/2013 12:00 AM VALERIO R OF SAFETY AND OCCUPATIONAL HEALTH MANAGER FINANCIAL/MEDICAL Care Teams Computer Typesetter Keyliner Relationship Specialty Start Date End Date Kye Pierce MD PCP - General Family Practice 08/31/23
--- NOTE | 2025-02-06 08:32 | WPDHPUPDATE1 ---
History and Physical Update Update Date/Time: 02/06/25 08:32 History and Physical has been reviewed, including an updated exam of the patient. There are NO changes in the patient's condition. Risks, benefits, and alternatives have been discussed and questions answered. Patient agrees to proceed with procedure.
--- NOTE | 2025-02-06 08:38 | ECG_ITS ---
Test Date: 2025-02-06 09:33:22 Measurements Intervals [place] Rate: 63 P: 43 [place]: 210 QRS: -15 QRSD: 105 T: 39 QT: 401 QTc: 411 Interpretive Statements SINUS RHYTHM WITH FIRST DEGREE AV BLOCK BASELINE ARTIFACT- II, III, AVR, AVF, V1 BORDERLINE ECG No previous ECG available for comparison Electronically Signed On 02-06-2025 09:35:10 CDT by Anil Irizarry D.O.
[2025-02-06 08:47] VITALS: BP 133/57; PULSE 65; RESP 16; TEMP 36.6; O2SAT 98
[2025-02-06 09:25] LABS: Hematocrit 34.3 % (42.0-52.0); Hemoglobin 10.9 g/dL (14.0-18.0)
[2025-02-06] MEDS: ACETAMINOPHEN 500 MG TABLET 1000 MG PO (09:25)
[2025-02-06 09:35] LABS: Anion Gap 12 mmol/L (4-12); Blood Urea Nitrogen 65 mg/dL (9-20); Calcium 8.6 mg/dL (8.4-10.2); Carbon Dioxide 17 mmol/L (22-30); Chloride 112 mmol/L (98-107); Estimated CRCL calculation 12 ml/min; Estimated Glomerular Filt Rate 10; Glucose 114 mg/dL (65-110); Potassium 4.6 mmol/L (3.4-5.0); Sodium 141 mmol/L (137-145)
[2025-02-06 09:36] LABS: Glucose Point of Care 111 mg/dl (65-105)
--- NOTE | 2025-02-06 09:41 | P.PNAN_ITS ---
Anes - Initial Pre Proc Eval Procedure: Operation Date: 02/06/25 10:30 Proposed Procedures p Left Ankle Debridement - Judah Alarcon MD Date/Time: 02/06/25 09:41 Surgeon: Judah Alarcon MD Pre Op Diagnosis: Left Ankle Infection Patient Data Age: 79 Gender: M Height: 1.73 m Weight: 99.79 kg Allergies Allergy/AdvReac Type Severity Reaction Status Date / Time No Known Allergies Allergy Verified 02/05/25 13:52 Home Medications ?Medication ?Instructions ?Recorded ?Confirmed ?Type aspirin 81 mg tablet,delayed 81 mg PO DAILY 09/03/19 02/05/25 History release (Adult Low Dose Aspirin) multivitamin (Daily Multi-Vitamin 1 tablet PO DAILY 09/03/19 02/05/25 History tablet) vit C 50 mg-E 15 unit-zinc cit 4.5 1 tablet PO DAILY 10/18/19 02/05/25 History mg-lutein 2.5 mg-zeaxan chew tablet ([employer]) cholecalciferol (vitamin D3) 50 2,000 unit PO DAILY 02/24/21 02/05/25 History mcg (2,000 unit) capsule (Vitamin D3) valacyclovir 500 mg tablet 500 mg PO .prn PRN FEVER BLISTERS 05/24/22 02/05/25 History carvedilol 12.5 mg tablet 12.5 mg PO Q12H 02/19/24 02/05/25 History atorvastatin 80 mg tablet See Rx Instructions .Route 07/04/24 02/05/25 Rx .COMPLEX #90 tabs doxazosin 2 mg tablet See Rx Instructions .Route 07/04/24 02/05/25 Rx .COMPLEX #90 tabs adalimumab 40 mg/0.8 mL 40 mg (0.8 mL) subcut [id number] #2 ea 08/29/24 02/05/25 Rx subcutaneous syringe kit (Humira) ferrous sulfate 325 mg (65 mg 325 mg PO WEEKLY 11/11/24 02/05/25 History iron) tablet (Feosol) hydralazine 10 mg tablet See Rx Instructions .Route 11/18/24 02/05/25 Rx .COMPLEX #180 tabs pioglitazone 15 mg tablet 15 mg PO DAILY #90 tabs 11/18/24 02/05/25 Rx fluticasone propionate 50 2 spray intranasal DAILY #48 mL 11/28/24 02/05/25 Rx mcg/actuation nasal spray,suspension (Flonase Allergy Relief) empagliflozin 10 mg tablet 10 mg PO DAILY 12/05/24 02/05/25 History (Jardiance) Laboratory Tests 02/06/25 02/06/25 09:20 09:25 Hgb 10.9 L g/dL (14.0-18.0) Hct 34.3 L % (42.0-52.0) PT Pending INR Pending APTT Pending Sodium 141 mmol/L (137-145) Potassium 4.6 mmol/L (3.4-5.0) Chloride 112 H mmol/L (98-107) Carbon Dioxide 17 L mmol/L (22-30) Anion Gap 12 mmol/L (4-12) BUN 65 H D mg/dL (9-20) Creatinine 5.35 H mg/dL (0.7-1.3) Estim Creat Clear Calc 12 ml/min Estimated GFR 10 L (59 - ) Glucose 114 H mg/dL (65-110) POC Capillary Glucose 111 H mg/dl (65-105) Calcium 8.6 mg/dL (8.4-10.2) Patient hx anesthesia problems: none Family hx anesthesia problems: none Results Review: All pre-operative results and documents have been reviewed as part of the pre- operative evaluation. 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 Alarcon History of coronary artery stent placement x1 2017 History of hemicolectomy due to Crohn's Hx of cataract extraction Family History Family History Mother Family history of heart disease in male family member before age 55 Family history of cardiovascular disease Patient's mother is Diabetes mellitus Heart disease Hypertension Father Family history of heart disease in male family member before age 55 Patient's father is Heart disease Sibling Family history of malignant neoplasm Patient's sister is Breast cancer Other High cholesterol Social History Social History Social History: the patient is single and never . He has no children. He is a lifelong nonsmoker. He denies any alcohol marijuana or illicit drugs. He states that his sister is his durable power managing attorney for healthcare. The patient desires to be a full code. He is retired from [employer]. He lives alone. Smoking status: Never smoker Second hand tobacco smoke exposure: No Alcohol intake: never Substance use: never Substance use type: does not use Do You Feel Safe in your Home?: Yes Lack of Transportation: No Lack of Food: Never True Current Housing: I Have Housing Concerned About Future Housing: No Difficulty Paying Gas/Electric Bills: No Difficulty Paying for Meds: No Currently Unemployed: No Education: Associate Degree Difficulty w/ Childcare or Family Care: No Living arrangements: alone Occupation/Education: retired Gender identity (if verbalized by the patient): Male Sexual Orientation (if Verbalized by the Patient): Straight or Heterosexual Spiritual care concerns: No Agree to blood products: Yes Anes - Eval Final PreProcedure Day of Procedure 02/06/25 09:41 Patient weight: obese Heart: regular rate and rhythm Lungs: clear to auscultation Airway: Mallampati scale class II Neurological: alert and oriented Last oral intake: >/= 8 hours ASA classification: IV Emergent: no Anesthetic plan: proceed Anesthesia type and monitoring: general LMA and standard monitoring Results Review: All pre-operative results and documents have been reviewed as part of the pre- operative evaluation. Informed Consent: The patient's anesthetic plan and its attendant risks and benefits were discussed with the patient/family/POA. Questions were solicited and answers provided to the satisfaction of the patient/family/POA.
[2025-02-06] MEDS: SODIUM CHLORIDE 0.9% IV 500 ML 30 ML IV CONT (10:04)
[2025-02-06 10:13] LABS: INR 1.1
[2025-02-06 10:14] LABS: Partial Thromboplastin Time 29.6 Seconds (22.3-36.8)
--- NOTE | 2025-02-06 10:38 | W.PM.PROC2 ---
Procedure Note - Detailed Date of Procedure 02/06/25 Pre-op Diagnosis Left Ankle Infection Post-op Diagnosis Other (Left calcaneal osteomyelitis, peroneal tenosynovitis) Procedure Performed Excisional debridement left ankle/excision osteomyelitis left calcaneus, left peroneal tenosynovectomy Surgeon Judah Alarcon MD Forging Press Lever Tender 1st assistant paralegal Anesthesia General Indications 79yo man with h/o of previous calc osteomyelitis and abscesses. Presents with lateral ankle ulcer with purulent drainage. Indicated for debridement Description of Procedure Patient identified in the preoperative holding. Informed consent given. Operative extremity marked. Patient received intravenous antibiotics. Patient brought to the operating room where underwent sedation anesthetic by anesthesia team. Positioned supine on operating room table. Time-out performed confirming the patient, site of the surgery and the plan. Left foot ankle prepped and draped usual sterile surgical fashion using a Betadine prep solution. Foot ankle exsanguinated and calf tourniquet inflated to 250 mmHg. Ulcer on the lateral aspect of the ankle posterior to the fibula was identified which was 1 cm length, 0.5 cm width with purulent drainage. The incision was extended proximally and distally with 15 blade knife after administering local anesthetic. Dissection carried down through the fascia. Infected appearing synovium around the peroneal tendons was noted. This was sharply excised with 15 blade knife and a rongeur. The peroneal tendons are otherwise intact. Wound was irrigated tendon sheath closed with 3-0 Monocryl interrupted suture. Peroneal is a retracted anteriorly which allowed exposure of the lateral calcaneus. Previous surgery with placement cement calcaneus noted. Rongeur used to debride the lateral calcaneus and the cement. Infected material was removed, excised and passed off. Curette was used to assist with this. No other infected material was noted. Deep cultures were taken and thorough irrigation was done. IV Ancef was then started. After wound irrigation the skin was closed with 0 Prolene interrupted suture. Tourniquet released. Sterile dressing applied. The patient was then woken from anesthesia, extubated and taken to the recovery room in stable condition. All sponge, needle, instrument counts were correct at the end of the case. Implants None Estimated Blood Loss 5 Tourniquet Time Total Tourniquet Time: 25 Drains No Packing No Pathology Yes (wound cultures and GS) Complications None Condition Stable Disposition PACU [facility] Billing Surgery - Charge Forward: Surgery Billing ([id number], [id number])
[2025-02-06] MEDS: ceFAZolin 2 GM/D5W 50 ML 2 GM/50 ML BAG IVPB (11:15)
[2025-02-06] MEDS: BUPIVACAINE/EPINEPHRINE 0.5% 30 ML VIAL INFILTRATE (11:16)
--- NOTE | 2025-02-06 11:16 | SUR.OPER ---
culture given to KIMI Hansen. Recieved in lab by Virginie at 4615
[2025-02-06] MEDS: ceFAZolin SODIUM 1 GM VIAL (11:17)
[2025-02-06 11:33] VITALS: BP 112/56; PULSE 58; RESP 12; O2SAT 94
[2025-02-06 12:00] VITALS: BP 152/64; PULSE 58; RESP 12; O2SAT 100
[2025-02-06 12:12] LABS: Glucose Point of Care 106 mg/dl (65-105)
[2025-02-06 12:30] VITALS: BP 141/65; PULSE 57; RESP 14
[2025-02-06 12:50] VITALS: BP 133/72; PULSE 57; RESP 14
== END 2025-02-06 13:00 | disposition home or self-care (01) ==
PROVIDERS: Anesthesiology; PCP Nurse Practitioner Family; Visit Provider Orthopaedic Surgery
PROC: (CPT 28120; principal; 2025-02-06 10:30)
DX: M65.072 Abscess of tendon sheath, left ankle and foot (principal); M86.8X7 Other osteomyelitis, ankle and foot; M17.12 Unilateral primary osteoarthritis, left knee; M76.72 Peroneal tendinitis, left leg; E78.5 Hyperlipidemia, unspecified; E11.69 Type 2 diabetes mellitus with other specified complication; E11.65 Type 2 diabetes mellitus with hyperglycemia; E11.22 Type 2 diabetes mellitus with diabetic chronic kidney disease; I12.9 Hypertensive chronic kidney disease with stage 1 through stage 4 chronic kidney disease, or unspecified chronic kidney disease; N18.4 Chronic kidney disease, stage 4 (severe); I25.2 Old myocardial infarction; K50.90 Crohn's disease, unspecified, without complications; E66.9 Obesity, unspecified; Z68.32 Body mass index [BMI] 32.0-32.9, adult; Z79.82 Long term (current) use of aspirin; Z79.620 Long term (current) use of immunosuppressive biologic; Z79.84 Long term (current) use of oral hypoglycemic drugs; Z98.890 Other specified postprocedural states; Z90.49 Acquired absence of other specified parts of digestive tract; Z95.5 Presence of coronary angioplasty implant and graft; Z85.828 Personal history of other malignant neoplasm of skin; Z80.3 Family history of malignant neoplasm of breast; Z82.49 Family history of ischemic heart disease and other diseases of the circulatory system
CPT/HCPCS: 28120; 27680; 36415; 80048; 82948; 85014; 85018; 85610; 85730; 87070; 87075; 87181; 87205; 93005; A9270; J0690; J2003; J2704; J3010; J3370; J7040

== ENCOUNTER 2025-02-20 13:43 | Outpatient (CLI) | payer MEDICARE, SELFPAY ==
--- OUTSIDE RECORDS SUMMARY | 2025-02-20 13:46 | XMS_ITS | Encounter Summary ---
Author Organization [facility] Address [address] [place] [address] Care Team Providers Care Sql Programmer Analyst Name Role Phone Trever Tineo MD Primary Care Provider + Beau Goodwin DO Primary Care Provider [phone] Trever Tineo MD Unavailable [phone] Encounter Details Date Type Department Care Team (Late st Contact Info) Description 11/09/2020 Prep for Procedure [facility] [place] [address] Amol Marquez MD [address] [id number] Social History Tobacco Use Types Packs/Day Years [...] COVID-19? 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 documented as of this encounter Plan of Treatment Not on file documented as of this encounter Results * PRE-SURGICAL/PRE-PROCEDURE CORONAVIRUS (COVID 19) (11/09/2020 10:25 AM DELIVERY SALES WORKER) CORONAVIRUS SARS COV 2 PCR (RESP) NOT DETECTED NOT DETECTED 11/10/2020 11:42 PM [facility] Comment: A Not Detected (negative) test [...] providers and patients using the following websites: https://www.fflick.[employer] [place]/home/Covid-19/HCP/NAAT/fact-sheet2 https://www.fflick.[employer] [place]/home/Covid-19/Patients/NAAT/ fact-sheet2 This test has been authorized by the FDA under an Emergency Use Authorization (EUA) for use by authorized laboratories. Due to the current public health emergency, [facility] is receiving a high volume of samples [...] about COVID-19 can be found at the [facility] website: www.WeFi.[employer] [place]/Covid19. Test performed at [facility] [employer] [address] [place] [address] Director: WOODROW RIVERA DO,MPH FIRST TEST YES 11/09/2020 11:[address] [facility] EMPLOYED IN [facility] NO 11/09/2020 11:10 AM DELIVERY SALES WORKER [facility] SYMPTOMATIC DEFINED BY CDC NO 11/09/2020 11:10 AM DELIVERY SALES WORKER [facility] DATE OF SYMPTOM ONSET UNKNOWN 11/09/2020 12:05 PM DELIVERY SALES WORKER [facility] HOSPITALIZATION STATUS NO 11/09/2020 11:10 AM DELIVERY SALES WORKER [facility] PATIENT IN ICU NO 11/09/2020 11:10 AM DELIVERY SALES WORKER [facility] RESIDENT OF [facility] NO 11/09/2020 11:10 AM DELIVERY SALES WORKER [facility] PATIENT'S RACE WHITE OR 11/09/2020 11:10 AM DELIVERY SALES WORKER [facility] ETHNICITY NONHISPANIC 11/09/2020 11:10 AM DELIVERY SALES WORKER [facility] SOURCE (QST) NASOPHARYNGEAL SWAB 11/09/2020 11:10 AM DELIVERY SALES WORKER [facility] NASOPHARYNGEAL SWAB / Unknown 11/09/2020 10:25 AM DELIVERY SALES WORKER us Amol Marquez MD [facility]CROBIOLOGY - [facility] Final Result [facility] [address] [place] [address], [facility] [address] [address], documented in this encounter Visit Diagnoses Diagnosis Crohn's disease (CMS/HCC HHS/HCC)- Primary Regional enteritis of unspecified site documented in this encounter Additional Health Concerns Infection Onset Date Last Indicated Resolved Time COVID-19 Rule Out 11/09/2020 11/09/2020 11/10/2020 11:42 PM DELIVERY SALES WORKER documented as of this encounter Care Teams Sql Programmer Analyst Relationship Specialty Start Date End Date Trever Tineo MD [address] [facility] [address] [address] PCP - General 07/24/13 11/09/20 Beau Goodwin DO [address] [id number] PCP - General INTERNAL MEDICINE 11/10/20 Trever Tineo MD [facility] [address] [address] 11/10/20 documented as of this encounter
--- OUTSIDE RECORDS SUMMARY | 2025-02-20 13:46 | XMS_ITS | Clinical Summary ---
Author Organization [facility] [address] Address [address] [place] [address] Care Team Providers Care Audioprosthologist Name Role Phone Kye Pierce MD Primary Care Provider [phone] Allergies No known active allergies Medications jjvjoxtv-uox-SV-l ycopen-lutein (CENTRUM SILVER) 0.4-300-250 mg-mcg-mcg tablet take one daily 0 0 7 Active vit C-vit U-dfpace-zrs-om-3 (OCUVITE) 445-56-7-150 ee-nzgn-dg-mg capsule take one daily 0 0 7 [...] (11/04/2021): Added automatically from request for surgery [id number] Glaucoma suspect of both eyes 11/06/2018 Pseudophakia [...] on file Legal Sex Male 12:44 PM SYSTEM CONTROLLER Gender Identity Male 11/02/2020 9:25 PM SYSTEM CONTROLLER Sexual Orientation Bisexual 11/02/2020 9: 25 PM SYSTEM CONTROLLER Obstetrics History Last Filed Vital Signs Vital Sign Reading Time Taken Comments Blood Pressure 130/60 11/06/2024 11:06 AM SYSTEM CONTROLLER Pulse 70 11/06/2024 11:06 AM SYSTEM CONTROLLER Temperature 36.6 C (97.8 F) 08/30/2022 10:20 AM SYSTEM CONTROLLER Respiratory Rate 18 08/07/2024 3:46 PM CDT Oxygen Saturation 97% 11/06/2024 11:06 AM SYSTEM CONTROLLER Inhaled Oxygen Concentration - - Weight 97.5 kg (215 lb) 11/06/2024 11:06 AM SYSTEM CONTROLLER Height 172.7 cm (5' 8 ) 11/06/2024 11:06 AM SYSTEM CONTROLLER Body Mass Index 32.69 11/06/2024 11:06 AM SYSTEM CONTROLLER Plan of Treatment Health Maintenance Due Date [...] 08/09/2020 Zoster Vaccine Completed 10/18/2021, 07/14/2021 Insurance [facility] [place] [address] MEDICARE [facility] MEDICARE [facility] MEDICARE Advance Directives For more information, please contact: [phone] Documents on File Type Date Recorded Patient Manager Construction Expl anation ADVANCE DIRECTIVE 11/30/2021 7:07 AM ADVANCE DIRECTIVE 02/24/2013 12:00 AM VALERIO R OF SUPPORT MERCHANDISER FINANCIAL/MEDICAL Care Teams Audioprosthologist Relationship Specialty Start Date End Date Kye Pierce MD PCP - General Family Practice 08/31/23
--- OUTSIDE RECORDS SUMMARY | 2025-02-20 13:46 | XMS_ITS | Clinical Summary ---
Author Organization [facility] Care Team Providers Care Hook Puller Name Role Phone Unavailable Primary Care Provider [...]
--- OUTSIDE RECORDS SUMMARY | 2025-02-20 13:46 | XMS_ITS | Clinical Summary ---
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
--- OUTSIDE RECORDS SUMMARY | 2025-02-20 13:46 | XMS_ITS | Clinical Summary ---
Author Organization [facility] Address [address] [place] [address] [place] [address] Care Team Providers Care Stores Naval Name Role Phone Unavailable Primary Care Provider [...] 2024 Insurance MEDICARE PART A AND B [facility] [id number]
--- OUTSIDE RECORDS SUMMARY | 2025-02-20 13:46 | XMS_ITS | Referral Summary ---
Author Organization [facility] [address] Address [address] [place] [address] Care Team Providers Care Typist Name Role Phone Kye Pierce MD Primary Care Provider [phone] Allergies No known active allergies Medications bqiuaroq-csw-VR-l ycopen-lutein (CENTRUM SILVER) 0.4-300-250 mg-mcg-mcg tablet take one daily 0 0 7 Active vit C-vit X-qvovoo-hre-om-3 (OCUVITE) 180-59-1-150 zh-seuc-ur-mg capsule take one daily 0 0 7 [...] (11/04/2021): Added automatically from request for surgery [id number] Glaucoma suspect of both eyes 11/06/2018 Pseudophakia [...] on file Legal Sex Male 12:44 PM MATH AND 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 Gender Identity Male 11/02/2020 9:25 PM MATH AND SCIENCES DEPARTMENT CHAIR Sexual Orientation Bisexual 11/02/2020 9: 25 PM MATH AND SCIENCES DEPARTMENT CHAIR Last Filed Vital Signs Vital Sign Reading Time Taken Comments Blood Pressure 130/60 11/06/2024 11:06 AM MATH AND SCIENCES DEPARTMENT CHAIR Pulse 70 11/06/2024 11:06 AM MATH AND SCIENCES DEPARTMENT CHAIR Temperature 36.6 C (97.8 F) 08/30/2022 10:20 AM MATH AND SCIENCES DEPARTMENT CHAIR Respiratory Rate 18 08/07/2024 3:46 PM CDT Oxygen Saturation 97% 11/06/2024 11:06 AM MATH AND SCIENCES DEPARTMENT CHAIR Inhaled Oxygen Concentration - - Weight 97.5 kg (215 lb) 11/06/2024 11:06 AM MATH AND SCIENCES DEPARTMENT CHAIR Height 172.7 cm (5' 8 ) 11/06/2024 11:06 AM MATH AND SCIENCES DEPARTMENT CHAIR Body Mass Index 32.69 11/06/2024 11:06 AM MATH AND SCIENCES DEPARTMENT CHAIR Plan of Treatment Not on file Insurance [facility] MEDICARE [facility]ICARE [facility] MEDICARE [facility] MEDICARE [facility] Address: [facility] [address] [place] [address] Advance Directives For more information, please contact: [phone] Documents on File Type Date Recorded Patient Woodworking Shop Laborer Expl anation ADVANCE DIRECTIVE 11/30/2021 7:07 AM ADVANCE DIRECTIVE 02/24/2013 12:00 AM VALERIO R OF GRID INSPECTOR FINANCIAL/MEDICAL Care Teams Typist Relationship Specialty Start Date End Date Kye Pierce MD PCP - General Family Practice 08/31/23
--- OUTSIDE RECORDS SUMMARY | 2025-02-20 13:46 | XMS_ITS | Clinical Summary ---
Author Organization [facility] Address [address] [facility] [place] [address] Care Team Providers Care Food Processing Plant Manager Name Role Phone Beau Goodwin Primary Care Provider [phone] Source Comments [facility],non-owned Affiliates and Associated Physician Practices is amultiple site organization consisting of ambulatory clinics and hospital sitesin [place], [place], [place] and [place]. This disclosure is being madepursuant to the Care Everywhere program and may not contain all information available regarding this patient. Last updated 18.[facility] Allergies No known active allergies Medications * [...] on file Legal Sex Male 6:42 AM COIL WINDER REPAIR Gender Identity Not on file Sexual Orientation [...] age to complete this topic Insurance MEDICARE [facility] MEDICARE Care Teams Food Processing Plant Manager Relationship Specialty Start Date End Date Beau Goodwin DO [address] [place], [place] [id number] PCP - General 04/30/21
--- OUTSIDE RECORDS SUMMARY | 2025-02-20 13:46 | XMS_ITS | Clinical Summary ---
Author Organization [facility] Address [address] [place] [address] Care Team Providers Care Allied Health Instructor Name Role Phone Buddy Beauriana Lechuga DO Primary Care Provider [phone] Trever Tineo MD Unavailable [phone] Allergies No known active allergies Medications atorvastatin [...] age to complete this topic Insurance MEDICARE [facility] Advance Directives Documents on File Type Date Recorded Patient Hydramatic Specialist Expl anation Power of Lime Plant Operator 02/14/2023 POA 2022 Care Teams Allied Health Instructor Relationship Specialty Start Date End Date Beau Goodwin DO [address] [address] PCP - General INTERNAL MEDICINE 11/10/20 Trever Tineo MD [address] [facility] [address] [place] [address] 11/10/20
[2025-02-20 15:13] LABS: MRSA (PCR) NOT DETECTED (NOT DETECTE)
== END 2025-02-20 13:44 | disposition home or self-care (01) ==
PROVIDERS: PCP Nurse Practitioner Family; Visit Provider Orthopaedic Surgery
DX: Z22.322 Carrier or suspected carrier of Methicillin resistant Staphylococcus aureus (principal)
CPT/HCPCS: 87641

== ENCOUNTER 2025-04-17 09:30 | Outpatient (CLI) | payer MEDICARE, SELFPAY ==
--- NOTE | ~2025-04-17 | MR_ITS ---
MRI of the left ankle Clinical history: Peroneal tendinitis Technique: Coronal proton-density and proton-density fat-sat images, axial proton-density and proton- density fat-sat images, and sagittal proton-density and proton-density fat-sat images were acquired. Findings: Syndesmotic ligaments are intact. Anterior and posterior talofibular ligaments are intact. Calcaneofibular ligaments are poorly delineated, probably intact. Medial flexor tendons, peroneus longus tendon, anterior extensor tendons are intact. Possible longitu dinal split tear other partial tearing of the peroneus brevis tendon. There is low signal thickening of the distal Achilles tendon, compatible tendinosis. There is susceptibility artifact at the peroneal tubercle region of the calcaneus, which could reflec t postoperative change. There is mild irregularity overall contour of the calcaneus which could refle ct chronic posttraumatic change. No acute fracture or dislocation seen. No osteochondral lesion of th e talar dome. Tibiotalar joint is intact. No acute bone marrow edema identified. Plantar fascia intact. No soft tissue mass or fluid collection evident. Impression: Presumed postoperative change in the peroneal tubercle region of the calcaneus. Correlate with surgic al history. No abnormal mass lesion or fluid collection evident. Possible longitudinal split tear other partial tearing of the peroneus brevis tendon. Low signal thickening of the distal Achilles tendon. Reviewed, dictated and finalized at [facility]. Impression: Presumed postoperative change in the peroneal tubercle region of the calcaneus. Correlate with surgical history. No abnormal mass lesion or fluid collection e vident. Possible longitudinal split tear other partial tearing of the peroneus brevis t endon. Low signal thickening of the distal Achilles tendon.
--- OUTSIDE RECORDS SUMMARY | 2025-04-17 09:34 | XMS_ITS | Clinical Summary ---
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 08/27/2018 Exudative [...] PM MDT Legal Sex Male 8:15 AM [facility] Gender Identity Male 01/21/2020 4:50 [...] 9:18 AM CDT Height 172.7 cm (5' 8) 05/12/2022 9:18 AM CDT Body Mass Index 31.78 05/12/2022 9:18 AM CDT Plan of Treatment Health Maintenance Due Date Last Done Comments Pneumococcal PPSV23/PCV13 65 + Years / Low and Medium Risk (1 of 2 - PCV) 1993 COVID-19 Vaccine ( season) 2024 12/25/2020, 12/04/2020, 12/04/2020 Influenza Vaccine (Season Ended) 2025 08/09/20 20 Insurance MEDICARE [facility] Care Teams Mid Level Provider Relationship Specialty Start Date End Date Beau Goodwin DO [address] [place] [address] PCP - General Internal Medicine 05/20/19
--- OUTSIDE RECORDS SUMMARY | 2025-04-17 09:34 | XMS_ITS | Clinical Summary ---
[facility] Organization [facility] Address [address] [place] [address] [place] [address] Care Team Providers Care Urology Physician Name Role Phone Unavailable Primary Care Provider [...] 1-dose 75+ series) 2018 INFLUENZA VACCINE (#1) 2025 Insurance MEDICARE PART A AND B [facility] [id number]
--- OUTSIDE RECORDS SUMMARY | 2025-04-17 09:34 | XMS_ITS | Clinical Summary ---
Author Organization [facility] Address [address] [facility] [place] [address] Care Team Providers Care Personal Banker Name Role Phone Baeu Goodwin Primary Care Provider Source Comments [facility],non-owned Affiliates and Associated Physician Practices is amultiple site organization consisting of ambulatory clinics and hospital sitesin [place], [place], [place] and [place]. This disclosure is being madepursuant to the Care Everywhere program and may not contain all information available regarding this patient. 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
--- OUTSIDE RECORDS SUMMARY | 2025-04-17 09:34 | XMS_ITS | Patient Health Record ---
Author Organization [facility] Address [address] [address] Care Team Providers Care Print Color Matcher Name Role Phone Jm Palomo Primary Care Provider Reason For Referral No Information Medications Medication SIG (Take, Route, Frequency, Duration) Notes Start Date End Date Status ZyrTEC Allergy 10MG PO daily prn [facility] [place] Ecotrin Low Strength 81MG PO DAILY [facility] Active Co Q-10 200MG PO bid prn [facility] Acti ve Lopressor 100MG PO BID [facility] Act neema Centrum Silver Adult 50+ 1TAB PO DAILY [facility] 12/12/2013 Active Fish Oil Burp-Less 1CAP PO DAILY [facility] Active Vitamin D [id number] PO WEEKLY [facility] Active Fenofibrate 160MG PO 1 tab 3 times a week [facility] 10/16/18 00 Active sulfaSALAzine 500MG PO 2 tab bid [facility] Active Doxazosin Mesylate 2MG PO BEDTIME [facility] Active Problems Problem Type SNOMED Code ICD Code Onset Dates Problem Status W/U Status Risk Notes Problem Vitamin D deficiency (14964335) Unspecified vitamin D deficiency (268.9) Active confirmed Problem Hyperlipidemia (52963081) Other and unspecified hyperlipidemia (272.4) Active confirmed Problem Allergic rhinitis (77730309) Allergic rhinitis, cause unspecified (477.9) Active confirmed Problem Otitis media (63406703) Unspecified otitis media (382.9) Active confirmed Problem Benign essential hypertension (9300057) Essential hypertension, benign (401.1) Active confirmed Problem Essential hypertension (23510952) Unspecified essential hypertension (401.9) Active confirmed Problem Carotid artery occlusion (975287781) Occlusion and stenosis of carotid artery (433.1) Active confirmed Problem Crohn's disease of large bowel (5722601) Regional enteritis of large intestine (555.1) Active confirmed Problem Chronic nonalcoholic liver disease (76581144) Other chronic nonalcoholic liver disease (571.8) Active confirmed Problem Chronic kidney disease stage 3 (290621163) Chronic kidney disease, Stage III (moderate) (585.3) Active confirmed Problem Hyperplasia of prostate (073187157) Hyperplasia of prostate (600) Active confirmed Problem Degeneration of cervical intervertebral disc (90088151) 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) Active confirmed Problem Impaired glucose tolerance test (943979717) Impaired glucose tolerance test (oral) (790.22) Active confirmed Problem Family history: Cardiac disorder (895948515) Family history of other cardiovascular diseases (V17.49) Active confirmed Plan Of Treatment No Information Insurance Providers Payer Name Payer Address Payer Phone Subscriber Number Group Number Insured Name Patient Relationship to Insured Coverage Start Date Coverage End Date MEDICARE PART AB [address] [place] [address] [id number] TRAVIS CHINCHILLA Self - patient is the insured [facility] [address] [place] [address] [id number] TRAVIS CHINCHILLA Self - patient is the insured Medical (General) History Surgical History Surgery Date(Month/Year) Cataract Surgery ; Colon Resection ; Foot Surgery ; Gallbladder Removal ; Rotator Cuff Surgery ;
--- OUTSIDE RECORDS SUMMARY | 2025-04-17 09:34 | XMS_ITS | Clinical Summary ---
Author Organization [facility] Care Team Providers Care Shot Blaster Name Role Phone Unavailable Primary Care Provider [...]
--- OUTSIDE RECORDS SUMMARY | 2025-04-17 09:34 | XMS_ITS | Clinical Summary ---
Author Organization [facility] Address [address] [place] [address] Care Team Providers Care Manager Group Name Role Phone Beau Goodwin DO Primary Care Provider [phone] Trever Tineo MD Unavailable [phone] Allergies No known active allergies Medications atorvastatin [...] 12:29 PM CDT Height 172.7 cm (5' 8) 02/08/2023 12:29 PM CDT Body Mass Index [...] age to complete this topic Insurance MEDICARE [facility] Advance Directives Documents on File Type Date Recorded Patient Blood Bank Calendar Control Clerk Expl anation Power of Product Safety And Standards Engineer 02/14/2023 POA 2022 Care Teams Manager Group Relationship Specialty Start Date End Date Beau Goodwin DO [address] [address] PCP - General INTERNAL MEDICINE 11/10/20 Trever Tineo MD [address] [facility] [address] [place] [address] 11/10/20
--- OUTSIDE RECORDS SUMMARY | 2025-04-17 09:34 | XMS_ITS | Referral Summary ---
Author Organization [facility] [address] Address [address] [place] [address] Care Team Providers Care Maintenance Mechanic Telephone Name Role Phone Kye Pierce MD Primary Care Provider [phone] Allergies No known active allergies Medications legwjrsy-kxi-SV-l ycopen-lutein (CENTRUM SILVER) 0.4-300-250 mg-mcg-mcg tablet take one daily 0 0 7 Active vit C-vit I-rfonvk-dbm-om-3 (OCUVITE) 082-76-0-150 jk-yjwu-ak-mg capsule take one daily 0 0 7 [...] (11/04/2021): Added automatically from request for surgery [id number] Glaucoma suspect of both eyes 11/06/2018 Pseudophakia [...] on file Legal Sex Male 12:44 PM INFORMATION SYSTEMS PROFESSOR Gender Identity Male 11/02/2020 9:25 PM INFORMATION SYSTEMS PROFESSOR Sexual Orientation Bisexual 11/02/2020 9: 25 PM INFORMATION SYSTEMS PROFESSOR Last Filed Vital Signs Vital Sign Reading Time Taken Comments Blood Pressure 130/60 11/06/2024 11:06 AM INFORMATION SYSTEMS PROFESSOR Pulse 70 11/06/2024 11:06 AM INFORMATION SYSTEMS PROFESSOR Temperature 36.6 C (97.8 F) 08/30/2022 10:20 AM INFORMATION SYSTEMS PROFESSOR Respiratory Rate 18 08/07/2024 3:46 PM CDT Oxygen Saturation 97% 11/06/2024 11:06 AM INFORMATION SYSTEMS PROFESSOR Inhaled Oxygen Concentration - - Weight 97.5 kg (215 lb) 11/06/2024 11:06 AM INFORMATION SYSTEMS PROFESSOR Height 172.7 cm (5' 8) 11/06/2024 11:06 AM INFORMATION SYSTEMS PROFESSOR Body Mass Index 32.69 11/06/2024 11:06 AM INFORMATION SYSTEMS PROFESSOR Plan of Treatment Not on file Insurance [facility] MEDICARE MEDICARE [facility] MEDICARE [facility] MEDICARE Advance Directives For more information, please contact: [phone] Documents on File Type Date Recorded Patient Cut Roll Machine Offbearer Expl anation ADVANCE DIRECTIVE 11/30/2021 7:07 AM ADVANCE DIRECTIVE 02/24/2013 12:00 AM VALERIO R OF PRINTING MACHINE OPERATOR [employer] FINANCIAL/MEDICAL Care Teams Maintenance Mechanic Telephone Relationship Specialty Start Date End Date Kye Pierce MD PCP - General Family Practice 08/31/23
--- OUTSIDE RECORDS SUMMARY | 2025-04-17 09:34 | XMS_ITS | Encounter Summary ---
Author Organization [facility] Address [address] [place] [address] Care Team Providers Care Stonehand Name Role Phone Trever Tineo MD Primary Care Provider + Beau Goodwin DO Primary Care Provider [phone] Trever Tineo MD Unavailable [phone] Encounter Details Date Type Department Care Team (Late st Contact Info) Description 11/09/2020 Prep for Procedure [facility] [place] [address] Amol Marquez MD [address] [id number] Social History Tobacco Use Types Packs/Day Years [...] COVID-19? No / Unsure 11/12/2020 10:17 AM IRRIGATOR OVERHEAD documented as of this encounter Plan of Treatment Not on file documented as of this encounter Results * PRE-SURGICAL/PRE-PROCEDURE CORONAVIRUS (COVID 19) (11/09/2020 10:25 AM IRRIGATOR OVERHEAD) CORONAVIRUS SARS COV 2 PCR (RESP) NOT DETECTED NOT DETECTED 11/10/2020 11:42 PM [facility] Comment: A Not Detected (negative) test result [...] providers and patients using the following websites: https://www.CapRally.Dali Wireless/home/Covid-19/HCP/NAAT/fact-sheet2 https://www.CapRally.Dali [employer]/home/Covid-19/Patients/NAAT/ fact-sheet2 This test has been authorized by the FDA under an Emergency Use Authorization (EUA) for use by authorized laboratories. Due to the current public health emergency, [employer] is receiving a high volume of samples [...] about COVID-19 can be found at the [employer] website: www.Toura.Dali Wireless/Covid19. Test performed at [facility] [address] [place] [address] Director: WOODROW RIVERA DO,MPH FIRST TEST YES 11/09/2020 11:10 AM [facility] EMPLOYED IN [facility] NO 11/09/2020 11:10 AM IRRIGATOR OVERHEAD [facility] SYMPTOMATIC DEFINED BY CDC NO 11/09/2020 11:10 AM IRRIGATOR OVERHEAD [facility] DATE OF SYMPTOM ONSET UNKNOWN 11/09/2020 12:05 PM IRRIGATOR OVERHEAD [facility] HOSPITALIZATION STATUS NO 11/09/2020 11:10 AM IRRIGATOR OVERHEAD [facility] PATIENT IN ICU NO 11/09/2020 11:10 AM IRRIGATOR OVERHEAD [facility] RESIDENT OF [facility] NO 11/09/2020 11:10 AM IRRIGATOR OVERHEAD [facility] PATIENT'S RACE WHITE OR 11/09/2020 11:10 AM IRRIGATOR OVERHEAD [facility] ETHNICITY NONHISPANIC 11/09/2020 11:10 AM IRRIGATOR OVERHEAD [facility] SOURCE (QST) NASOPHARYNGEAL SWAB 11/09/2020 11:10 AM IRRIGATOR OVERHEAD [facility] NASOPHARYNGEAL SWAB / Unknown 11/09/2020 10:25 AM IRRIGATOR OVERHEAD us Amol Marquez MD MICROBIOLOGY - GENERAL [facility] Final Result [facility] [address] [place] [address], [facility] [address] [address], documented in this encounter Visit Diagnoses Diagnosis Crohn's disease (CMS/HCC HHS/HCC)- Primary Regional enteritis of unspecified site documented in this encounter Additional Health Concerns Infection Onset Date Last Indicated Resolved Time COVID-19 Rule Out 11/09/2020 11/09/2020 11/10/2020 11:42 PM IRRIGATOR OVERHEAD documented as of this encounter Care Teams Stonehand Relationship Specialty Start Date End Date Trever Tineo MD 46[address] [facility] [address] [address] PCP - General 07/24/13 11/09/20 Beau Goodwin DO [address] [id number] PCP - General INTERNAL MEDICINE 11/10/20 Trever Tineo MD [facility] [address] [address] 11/10/20 documented as of this encounter
--- OUTSIDE RECORDS SUMMARY | 2025-04-17 09:34 | XMS_ITS | Clinical Summary ---
Author Organization [facility] [address] Address [address] [place] [address] Care Team Providers Care Baker Head Name Role Phone Kye Pierce MD Primary Care Provider [phone] Allergies No known active allergies Medications eyrzatzk-ekt-VY-l ycopen-lutein (CENTRUM SILVER) 0.4-300-250 mg-mcg-mcg tablet take one daily 0 0 7 Active vit C-vit N-kmxnfy-omb-om-3 (OCUVITE) 728-74-2-150 ah-zvbv-dz-mg capsule take one daily 0 0 7 [...] (11/04/2021): Added automatically from request for surgery [id number] Glaucoma suspect of both eyes 11/06/2018 Pseudophakia [...] on file Legal Sex Male 12:44 PM HORTICULTURE INSTRUCTOR Gender Identity Male 11/02/2020 9:25 PM HORTICULTURE INSTRUCTOR Sexual Orientation Bisexual 11/02/2020 9: 25 PM HORTICULTURE INSTRUCTOR Obstetrics History Last Filed Vital Signs Vital Sign Reading Time Taken Comments Blood Pressure 130/60 11/06/2024 11:06 AM HORTICULTURE INSTRUCTOR Pulse 70 11/06/2024 11:06 AM HORTICULTURE INSTRUCTOR Temperature 36.6 C (97.8 F) 08/30/2022 10:20 AM HORTICULTURE INSTRUCTOR Respiratory Rate 18 08/07/2024 3:46 PM CDT Oxygen Saturation 97% 11/06/2024 11:06 AM HORTICULTURE INSTRUCTOR Inhaled Oxygen Concentration - - Weight 97.5 kg (215 lb) 11/06/2024 11:06 AM HORTICULTURE INSTRUCTOR Height 172.7 cm (5' 8) 11/06/2024 11:06 AM HORTICULTURE INSTRUCTOR Body Mass Index 32.69 11/06/2024 11:06 AM HORTICULTURE INSTRUCTOR Plan of Treatment Health Maintenance Due Date [...] 08/09/2020 Zoster Vaccine Completed 10/18/2021, 07/14/2021 Insurance [facility] MEDICARE MEDICARE [facility] MEDICARE [facility] MEDICARE Advance Directives For more information, please contact: [phone] Documents on File Type Date Recorded Patient Ui Software Engineer Expl anation ADVANCE DIRECTIVE 11/30/2021 7:07 AM ADVANCE DIRECTIVE 02/24/2013 12:00 AM VALERIO R OF [employer] FINANCIAL/MEDICAL Care Teams Baker Head Relationship Specialty Start Date End Date Kye Pierce MD PCP - General Family Practice 08/31/23
== END 2025-04-17 09:31 | disposition home or self-care (01) ==
LOC: CHSIMG 09:31
PROVIDERS: PCP Nurse Practitioner Family; Visit Provider Orthopaedic Surgery
DX: M76.72 Peroneal tendinitis, left leg (principal)
CPT/HCPCS: 73721

== ENCOUNTER 2025-05-22 09:47 | Outpatient (CLI) | payer MEDICARE, SELFPAY ==
--- OUTSIDE RECORDS SUMMARY | 2025-05-22 10:01 | XMS_ITS | Encounter Summary ---
Author Organization [facility] Address [address] [place] [address] Care Team Providers Care Wet Cotton Feeder Name Role Phone Trever Tineo MD Primary Care Provider + Beau Goodwin DO Primary Care Provider [phone] Trever Tineo MD Unavailable [phone] Encounter Details Date Type Department Care Team (Late st Contact Info) Description 11/09/2020 Prep for Procedure [facility] [place] [address] Amol Marquez MD [address] [id number] Social History Tobacco Use Types Packs/Day Years [...] COVID-19? No / Unsure 11/12/2020 10:17 AM MOSS PICKER documented as of this encounter Plan of Treatment Not on file documented as of this encounter Results * PRE-SURGICAL/PRE-PROCEDURE CORONAVIRUS (COVID 19) (11/09/2020 10:25 AM MOSS PICKER) CORONAVIRUS SARS COV 2 PCR (RESP) NOT DETECTED NOT DETECTED 11/10/2020 11:42 PM [facility] Comment: A Not Detected (negative) test [...] providers and patients using the following websites: https://www.Coship Electronics.GoPollGo/home/Covid-19/HCP/NAAT/fact-sheet2 https://www.[employer].GoPollGo/home/Covid-19/Patients/NAAT/ fact-sheet2 This test has been authorized by the FDA under an Emergency Use Authorization (EUA) for use by authorized laboratories. Due to the current public health emergency, [facility] [employer] is receiving a high volume of samples [...] about COVID-19 can be found at the [employer] website: www.Fur and Mask.GoPollGo/Covid19. Test performed at [facility] [address] [place] [address] Director: WOODROW RIVERA DO,MPH FIRST TEST YES 11/09/2020 11:10 AM [facility] EMPLOYED IN [facility] NO 11/09/2020 11:10 AM MOSS PICKER [facility] SYMPTOMATIC DEFINED BY CDC NO 11/09/2020 11:10 AM MOSS PICKER [facility] DATE OF SYMPTOM ONSET UNKNOWN 11/09/2020 12:05 PM MOSS PICKER [facility] HOSPITALIZATION STATUS NO 11/09/2020 11:10 AM MOSS PICKER [facility] PATIENT IN ICU NO 11/09/2020 11:10 AM MOSS PICKER [facility] RESIDENT OF [facility] NO 11/09/2020 11:10 AM MOSS PICKER [facility] PATIENT'S RACE WHITE OR 11/09/2020 11:10 AM MOSS PICKER [facility] ETHNICITY NONHISPANIC 11/09/2020 11:10 AM MOSS PICKER [facility] SOURCE (QST) NASOPHARYNGEAL SWAB 11/09/2020 11:10 AM MOSS PICKER [facility] NASOPHARYNGEAL SWAB / Unknown 11/09/2020 10:25 AM MOSS PICKER us Amol Marquez MD MICROBIOLOGY - [facility]AL [facility] Final Result [facility] [address] [place] [address], [facility] [address] [address], documented in this encounter Visit Diagnoses Diagnosis Crohn's disease (CMS/HCC HHS/HCC)- Primary Regional enteritis of unspecified site documented in this encounter Additional Health Concerns Infection Onset Date Last Indicated Resolved Time COVID-19 Rule Out 11/09/2020 11/09/2020 11/10/2020 11:42 PM MOSS PICKER documented as of this encounter Care Teams Wet Cotton Feeder Relationship Specialty Start Date End Date Trever Tineo MD 4600 [facility] [address] [address] PCP - General 07/24/13 11/09/20 Beau Goodwin DO [address] [id number] PCP - General INTERNAL MEDICINE 11/10/20 Trever Tineo MD [facility] [address] [address] 11/10/20 documented as of this encounter
--- OUTSIDE RECORDS SUMMARY | 2025-05-22 10:01 | XMS_ITS | Clinical Summary ---
Author Organization [facility] Address [address] [place] [address] Care Team Providers Care Geothermal Operating Engineer Name Role Phone Beau Goodwin DO Primary Care Provider [phone] Trever Tineo MD Unavailable [phone] Allergies No known active allergies Medications atorvastatin [...] age to complete this topic Insurance MEDICARE [facility] Advance Directives Documents on File Type Date Recorded Patient Dining Room Tables Set Up Attendant Expl anation Power of Staff Forester 02/14/2023 POA 2022 Care Teams Geothermal Operating Engineer Relationship Specialty Start Date End Date Beau Goodwin DO [address] [address] PCP - General INTERNAL MEDICINE 11/10/20 Trever Tineo MD 4600 [facility] [address] [place] [address] 11/10/20
--- OUTSIDE RECORDS SUMMARY | 2025-05-22 10:01 | XMS_ITS | Clinical Summary ---
Author Organization [facility] Address [address] [place] [address] [place] [address] Care Team Providers Care Crusher Loader Equipment Operator Name Role Phone Unavailable Primary Care Provider [...] 2025 Insurance MEDICARE PART A AND B [facility] [id number]
--- OUTSIDE RECORDS SUMMARY | 2025-05-22 10:01 | XMS_ITS | Clinical Summary ---
Author Organization [facility] Address [address] [place] [address] Phone Care Team Providers Care Solar Installer Pv Name Role Phone Beau Goodwin Primary Care Provider [phone] Allergies No known active allergies Medications Multiple [...] Hyperlipidemia 08/27/2018 Atherosclerotic heart diseas e of [place] coronary artery without angina pectoris 08/27/2018 Exudative [...] PM MDT Legal Sex Male 8:15 AM [facility] Gender Identity Male 01/21/2020 4:50 PM [...] season) 2024 12/25/2020, 12/04/2020, 12/04/2020 Influenza Vaccine (#1) 2025 08/09/2020 Insurance MEDICARE [facility] Care Teams Solar Installer Pv Relationship Specialty Start Date End Date Beau Goodwin DO [address] [place] [address] PCP - General Internal Medicine 05/20/19
--- OUTSIDE RECORDS SUMMARY | 2025-05-22 10:01 | XMS_ITS | Patient Health Record ---
Author Organization [facility] Address [address] [address] Care Team Providers Care Management Professionals Name Role Phone Jm Palomo Primary Care Provider [phone] Reason For Referral No Information Medications Medication [place] [id number] PO [facility] [place] [facility] [...] Problem Status W/U Status Risk Notes Problem Family history: Cardiovascular disease (situation) (853214325) Family history of other cardiovascular diseases (V17.49) Active confirmed Problem Impaired glucose tolerance test (145927572) Impaired glucose tolerance test (oral) (790.22) Active confirmed Problem Degeneration of cervical intervertebral disc (75851181) 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) Active confirmed Problem Hyperplasia of prostate (849241030) Hyperplasia of prostate (600) Active confirmed Problem Chronic kidney disease stage 3 (553729823) Chronic kidney disease, Stage III (moderate) (585.3) Active confirmed Problem Chronic nonalcoholic liver disease (80427718) Other chronic nonalcoholic liver disease (571.8) Active confirmed Problem Crohn's disease of large bowel (0340517) Regional enteritis of large intestine (555.1) Active confirmed Problem Carotid artery occlusion (572132674) Occlusion and stenosis of carotid artery (433.1) Active confirmed Problem Essential hypertension (11449083) Unspecified essential hypertension (401.9) Active confirmed Problem Benign essential hypertension (7057903) Essential hypertension, benign (401.1) Active confirmed Problem Otitis media (06483270) Unspecified otitis media (382.9) Active confirmed Problem Allergic rhinitis (82100058) Allergic rhinitis, cause unspecified (477.9) Active confirmed Problem Hyperlipidemia (70565134) Other and unspecified hyperlipidemia (272.4) Active confirmed Problem Vitamin D deficiency (86307588) Unspecified vitamin D deficiency (268.9) Active confirmed Plan Of Treatment No Information Insurance Providers Payer Name Payer Address Payer Phone Subscriber Number Group Number Insured Name Patient Relationship to Insured Coverage Start Date Coverage End Date MEDICARE PART AB [address] [place] [address] [id number] TRAVIS CHINCHILLA Self - patient is the insured [facility] [address] [place] [address] [phone] [id number] TRAVIS CHINCHILLA Self - patient is the insured Medical (General) History Surgical History Surgery Date(Month/Year) Cataract Surgery ; Colon Resection ; Foot Surgery ; Gallbladder Removal ; Rotator Cuff Surgery ;
--- OUTSIDE RECORDS SUMMARY | 2025-05-22 10:01 | XMS_ITS | Clinical Summary ---
Author Organization [facility] [employer] Address [address] [place] [address] Care Team Providers Care Casting Operator Helper Name Role Phone Beau Goodwin Primary Care Provider Source Comments [facility] [employer],non-owned Affiliates and Associated Physician Practices is amultiple site organization consisting of ambulatory clinics and hospital sitesin [place], [place], [place] and [place]. This disclosure is being madepursuant to the Care Everywhere program and may not contain all information available regarding this patient. Last updated 18.[facility] [employer] Allergies No known active allergies Medications * [...] on file Legal Sex Male 6:42 AM CLOTH SHADER Gender Identity Not on file Sexual Orientation [...] 2024 12/04/2020 DEPRESSION SCREENING 10/16/2024 INFLUENZA VACCINE (#1) 2025 08/09/2020 HEPATITIS B VACCINE Aged Out No longe [...] age to complete this topic Insurance MEDICARE [facility] MEDICARE Care Teams Casting Operator Helper Relationship Specialty Start Date End Date Beau Goodwin DO [address] [place] [address] PCP - General 04/30/21
--- OUTSIDE RECORDS SUMMARY | 2025-05-22 10:01 | XMS_ITS | Clinical Summary ---
Author Organization [facility] [address] Address [address] [place] [address] Care Team Providers Care Loader Unloader Name Role Phone Kye Pierce MD Primary Care Provider [phone] Allergies No known active allergies Medications gnepxsni-mbg-AW-l ycopen-lutein (CENTRUM SILVER) 0.4-300-250 mg-mcg-mcg tablet take one daily 0 0 7 Active vit C-vit T-klzhdu-jgz-om-3 (OCUVITE) 532-10-0-150 kr-gvfk-wn-mg capsule take one daily 0 0 7 [...] (11/04/2021): Added automatically from request for surgery [id number] Glaucoma suspect of both eyes 11/06/2018 Pseudophakia of both eyes 11/06/2018 Exudative age-related macular degeneration 11/10 Hypertension 01/26/2011 Encounters Date Type Department Care Team Description 05/07/2025 10:30 AM CDT Office Visit [facility] Cardiology [address] [facility] [address] [place] [phone] David Harvey MD Coronary artery disease involving [place] coronary artery of [place] heart without angina pectoris (Primary Dx); History of non-ST elevation myocardial infarction (NSTEMI); Status post angioplasty with stent; Chronic diastolic congestive heart failure (HCC); CKD (chronic kidney disease) stage 4, GFR 15-29 ml/min ([facility]) from Last 3 Months Surgical History Surgery Date Site/Laterality Comments CATARACT [...] on file Legal Sex Male 12:44 PM ELECTRICIAN'S ASSISTANT Gender Identity Male 11/02/2020 9:25 PM ELECTRICIAN'S ASSISTANT Sexual Orientation Bisexual 11/02/2020 9: 25 PM ELECTRICIAN'S ASSISTANT Obstetrics History Last Filed Vital Signs Vital Sign Reading Time Taken Comments Blood Pressure 116/64 05/07/2025 10:26 AM CDT Pulse 71 05/07/2025 10:26 AM CDT Temperature 36.6 C (97.8 F) 08/30/2022 10:20 AM ELECTRICIAN'S ASSISTANT Respiratory Rate 18 08/07/2024 3:46 PM CDT Oxygen Saturation 94% 05/07/2025 10:26 AM CDT Inhaled Oxygen Concentration - - Weight 97.1 kg (214 lb) 05/07/2025 10:26 AM CDT Height 172.7 cm (5' 8) 05/07/2025 10:26 AM CDT Body Mass Index 32.54 05/07/2025 10:26 AM CDT Plan of Treatment Health Maintenance Due Date Last Done Comments Depression Screening 1945 DTaP/Tdap/Td Vaccine (1 - Tdap) 1954 Hepatitis B Screening 1961 Pneumococcal vaccine 65+ (1 of 2 - PCV) 1962 Well Visit 65+ 2008 Fall Risk Assessment 11/30/2022 11/30/2021 Covid-19 Vaccine ( - 2023-2 5 season) 2024 08/16/2021, 12/25/2020, 12/04/2020, Additional history exists Influenza Vaccine (#1) 2025 08/10/2020, 2019 Zoster Vaccine Completed 10/18/2021, 07/14/2021 Insurance [facility] MEDICARE MEDICARE [facility] MEDICARE [facility] MEDICARE Advance Directives For more information, please contact: [phone] Documents on File Type Date Recorded Patient Wire Lather Expl anation ADVANCE DIRECTIVE 11/30/2021 7:07 AM ADVANCE DIRECTIVE 02/24/2013 12:00 AM VALERIO R OF DRAWING OPERATOR FINANCIAL/MEDICAL Care Teams Loader Unloader Relationship Specialty Start Date End Date Kye Pierce MD PCP - General Family Practice 08/31/23
--- OUTSIDE RECORDS SUMMARY | 2025-05-22 10:01 | XMS_ITS | Clinical Summary ---
Author Organization [facility] Care Team Providers Care Metal Mockup Maker Name Role Phone Unavailable Primary Care Provider [...] (Adult) (1 - 1-dose 75+ series) 2018 SARS-COV-2 Immunization ( - season) 2024 12/25/2020, 12/04/2020 Influenza Immunization (#1) 2025 08/10/2020 Hepatitis B Immunization Aged Out No longer eligible based on patient's age to complete this topic Human Papillomavirus (HPV) Immunization Aged Out No longer eligible b ased on patient's age to complete this topic Meningococcal Immunization (ACWY) Aged Out No longer eligible b ased on patient's age to complete this topic Rotavirus Immunization Aged Out No lo nger eligible based on patient's age to complete this topic
[2025-05-22 10:32] LABS: Hematocrit 33.2 % (42.0-52.0); Hemoglobin 10.3 g/dL (14.0-18.0)
[2025-05-22 10:45] LABS: INR 1.1; Prothrombin Time 14.4 Seconds (11.1-14.7)
[2025-05-22 10:46] LABS: Partial Thromboplastin Time 27.4 Seconds (22.3-36.8)
== END 2025-05-22 09:48 | disposition home or self-care (01) ==
LOC: ANHSURGERY 09:55
PROVIDERS: Anesthesiology; PCP Nurse Practitioner Family; Visit Provider Orthopaedic Surgery
DX: D64.9 Anemia, unspecified (principal); N18.9 Chronic kidney disease, unspecified
CPT/HCPCS: 36415; 85014; 85018; 85610; 85730

== ENCOUNTER 2025-05-29 01:44 | Day surgery (SDC) | payer MEDICARE, SELFPAY ==
--- NOTE | 2025-05-19 14:26 | PC.NURSE ---
Report to the Outpatient Waiting Room, entrance under the green pavilion located off [facility], at time _10 AM on date _05/29/25 . Planned Procedure Time: _1200 NOON .? Time changes happen often and if your time is changed the preop area will call you the afternoon before. - You and your visitor will be asked to self-screen and do not enter if you have any COVID symptoms. Please call surgeon if you need to reschedule. - A mask is optional within the hospital at this time. Patients may have clear liquids (water, carbonated beverages, clear teas, apple juice) until 3 hours prior to surgery ( 9AM) with a maximum of 20 ounces. - No food from midnight until time of surgery and no smoking, or chewing tobacco (or any form of nicotine). No chewing gum, candy or mints. Take only the following medications with a SIP of water on the morning of surgery: __CARVEDILOL,HYDRALAZINE DO NOT STOP ANY OF YOUR OTHER PRESCRIPTION MEDICATIONS PRIOR TO SURGERY EXCEPT THE FOLLOWING Hold all vitamins and supplements for 3 days per anesthesiologist.LAST DOSE 05/25/25 Medications to discontinue per physician ASPIRIN PER DR KANG Please no make-up, nail beninese, hairspray, perfume, deodorant, or body powder the day of surgery.? No jewelry (including any body piercings) or valuables the day of surgery, leave them at home.? Please take a shower or bath the night before, or the morning of, surgery with an antibacterial soap.? Wear comfortable, loose fitting clothing.? Children are encouraged to wear pajamas. - Jewelry must be removed prior to entering the operating room.? Rings and piercings that are not removed may be cut off. - The hospital will not accept responsibility for valuables.? - Please leave all valuables, including medications, at home the day of surgery. If you are going home after surgery, a licensed coach driver must drive you home.? - NO public transportation without another adult if you receive anesthesia. - We recommend that an adult stay with you for 24 hours following discharge. - We also recommend that you do not drive, make important decision, drink alcoholic beverages, or take any drugs that were not prescribed by your health care provider for at least 24 hours after your discharge time. Follow any additional instructions given to you from your surgeon. Telephone instructions given to _PATIENT and asked if any additional questions and then verbalized understanding. Patient advised to call surgeon office or pre surgery nurse liaison [phone] if any additional questions.
[2025-05-19 14:48] VITALS: BMI 33.4
[2025-05-29] VITALS (7 sets, daily range): BP systolic 125–160; BP diastolic 57–78; PULSE 58–65; RESP 14–18; TEMP 36.5–36.6; O2SAT 96–100; BMI 32.2
--- OUTSIDE RECORDS SUMMARY | 2025-05-29 01:53 | XMS_ITS | Encounter Summary ---
Author Organization [facility] Address [address] [place] [address] Care Team Providers Care Acetylene Torch Operator Name Role Phone Trever Tineo MD Primary Care Provider + Beau Goodwin DO Primary Care Provider [phone] Trever Tineo MD Unavailable [phone] Encounter Details Date Type Department Care Team (Late st Contact Info) Description 11/09/2020 Prep for Procedure [facility] [place] [address] Amol Marquez MD [address] [id number] Social History Tobacco Use Types Packs/Day Years [...] COVID-19? No / Unsure 11/12/2020 10:17 AM ADJUNCT PROFESSOR OF VOICE documented as of this encounter Plan of Treatment Not on file documented as of this encounter Results * PRE-SURGICAL/PRE-PROCEDURE CORONAVIRUS (COVID 19) (11/09/2020 10:25 AM ADJUNCT PROFESSOR OF VOICE) CORONAVIRUS SARS COV 2 PCR (RESP) NOT DETECTED NOT DETECTED 11/10/2020 11:42 PM [facility] Comment: A Not Detected (negative) test [...] providers and patients using the following websites: https://www.[employer]home/Covid-19/HCP/NAAT/fact-sheet2 https://www.[employer]home/Covid-19/Patients/NAAT/ fact-sheet2 This test has been authorized by the FDA under an Emergency Use Authorization (EUA) for use by authorized laboratories. Due to the current public health emergency, [facility] is receiving a high volume of samples [...] about COVID-19 can be found at the [facility] website: www.[employer]Covid19. Test performed at [facility] [address] [place] [address] Director: WOODROW RIVERA DO,MPH FIRST TEST YES 11/09/2020 11:10 AM [facility] EMPLOYED IN [facility] NO 11/09/2020 11:10 AM ADJUNCT PROFESSOR OF VOICE [facility] SYMPTOMATIC DEFINED BY CDC NO 11/09/2020 11:10 AM ADJUNCT PROFESSOR OF VOICE [facility] DATE OF SYMPTOM ONSET UNKNOWN 11/09/2020 12:05 PM ADJUNCT PROFESSOR OF VOICE [facility] HOSPITALIZATION STATUS NO 11/09/2020 11:10 AM ADJUNCT PROFESSOR OF VOICE [facility] PATIENT IN ICU NO 11/09/2020 11:10 AM ADJUNCT PROFESSOR OF VOICE [facility] RESIDENT OF [facility] NO 11/09/2020 11:10 AM ADJUNCT PROFESSOR OF VOICE [facility] PATIENT'S RACE WHITE OR 11/09/2020 11:10 AM ADJUNCT PROFESSOR OF VOICE [facility] ETHNICITY NONHISPANIC 11/09/2020 11:10 AM ADJUNCT PROFESSOR OF VOICE [facility] SOURCE (QST) NASOPHARYNGEAL SWAB 11/09/2020 11:10 AM ADJUNCT PROFESSOR OF VOICE [facility] NASOPHARYNGEAL SWAB / Unknown 11/09/2020 10:25 AM ADJUNCT PROFESSOR OF VOICE us Amol Marquez MD MICROBIOLOGY - [facility] Final Result [facility] [address] [place] [address], [facility] [address] [address], documented in this encounter Visit Diagnoses Diagnosis Crohn's disease (CMS/HCC HHS/HCC)- Primary Regional enteritis of unspecified site documented in this encounter Additional Health Concerns Infection Onset Date Last Indicated Resolved Time COVID-19 Rule Out 11/09/2020 11/09/2020 11/10/2020 11:42 PM ADJUNCT PROFESSOR OF VOICE documented as of this encounter Care Teams Acetylene Torch Operator Relationship Specialty Start Date End Date Trever Tineo MD [address] [facility] [address] [address] PCP - General 07/24/13 11/09/20 Beau Goodwin DO [address] [id number] PCP - General INTERNAL MEDICINE 11/10/20 Trever Tineo MD [facility] [address] [address] 11/10/20 documented as of this encounter
--- OUTSIDE RECORDS SUMMARY | 2025-05-29 01:53 | XMS_ITS | Patient Health Record ---
Author Organization [facility] Address [address] [address] Care Team Providers Care Data Processing Consultant Name Role Phone Jm Palomo Primary Care Provider Reason For Referral No Information Medications Medication SIG (Take, Route, Frequency, Duration) Notes Start Date End Date Status ZyrTEC Allergy 10MG PO daily prn [facility] Active Ecotrin Low Strength 81MG PO DAILY [facility] Active Co Q-10 200MG PO bid prn [facility] Acti ve Lopressor 100MG PO BID [facility] Act neema Centrum Silver Adult 50+ 1TAB PO DAILY [facility]- 12/12/2013 Active Fish Oil Burp-Less 1CAP PO DAILY [facility] Active Vitamin D 67100ONSZ PO WEEKLY [facility] Active Fenofibrate 160MG PO 1 tab 3 times a week [facility]- 10/16/18 00 Active sulfaSALAzine 500MG PO 2 tab bid [facility] Active Doxazosin Mesylate 2MG PO BEDTIME [facility] Active Problems Problem Type SNOMED Code ICD Code Onset Dates Problem Status W/U Status Risk Notes Problem Vitamin D deficiency (84880620) Unspecified vitamin D deficiency (268.9) Active confirmed Problem Hyperlipidemia (22463792) Other and unspecified hyperlipidemia (272.4) Active confirmed Problem Allergic rhinitis (77757267) Allergic rhinitis, cause unspecified (477.9) Active confirmed Problem Otitis media (87177850) Unspecified otitis media (382.9) Active confirmed Problem Benign essential hypertension (5962455) Essential hypertension, benign (401.1) Active confirmed Problem Essential hypertension (57962598) Unspecified essential hypertension (401.9) Active confirmed Problem Carotid artery occlusion (411722161) Occlusion and stenosis of carotid artery (433.1) Active confirmed Problem Crohn's disease of large bowel (6409696) Regional enteritis of large intestine (555.1) Active confirmed Problem Chronic nonalcoholic liver disease (15621860) Other chronic nonalcoholic liver disease (571.8) Active confirmed Problem Chronic kidney disease stage 3 (897350859) Chronic kidney disease, Stage III (moderate) (585.3) Active confirmed Problem Hyperplasia of prostate (466410795) Hyperplasia of prostate (600) Active confirmed Problem Degeneration of cervical intervertebral disc (70442413) 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) Active confirmed Problem Impaired glucose tolerance test (122293300) Impaired glucose tolerance test (oral) (790.22) Active confirmed Problem Family history: Cardiovascular disease (situation) (219055548) Family history of other cardiovascular diseases (V17.49) Active confirmed Plan Of Treatment No Information Insurance Providers Payer Name Payer Address Payer Phone Subscriber Number Group Number Insured Name Patient Relationship to Insured Coverage Start Date Coverage End Date MEDICARE PART AB [address] [place] [address] [id number] TRAVIS CHINCHILLA Self - patient is the insured [facility] [address] [place] [address] [id number] TRAVIS CHINCHILLA Self - patient is the insured Medical (General) History Surgical History Surgery Date(Month/Year) Cataract Surgery ; Colon Resection ; Foot Surgery ; Gallbladder Removal ; Rotator Cuff Surgery ;
--- OUTSIDE RECORDS SUMMARY | 2025-05-29 01:53 | XMS_ITS | Clinical Summary ---
Author Organization [facility] Care Team Providers Care Electricians Top Helper Name Role Phone Unavailable Primary Care Provider [...]
--- OUTSIDE RECORDS SUMMARY | 2025-05-29 01:53 | XMS_ITS | Clinical Summary ---
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
--- OUTSIDE RECORDS SUMMARY | 2025-05-29 01:53 | XMS_ITS | Clinical Summary ---
Author Organization [facility] Address [address] [place] [address] Care Team Providers Care Safety Investigator Name Role Phone Beau Goodwin DO Primary Care Provider [phone] Trever Tineo MD Unavailable [phone] Allergies No known active allergies Medications atorvastatin [...] age to complete this topic Insurance MEDICARE [facility] Advance Directives Documents on File Type Date Recorded Patient Hvac Field Service Technician Expl anation Power of Wildlife Conservation Officer 02/14/2023 POA 2022 Care Teams Safety Investigator Relationship Specialty Start Date End Date Beau Goodwin DO [address] [address] PCP - General INTERNAL MEDICINE 11/10/20 Trever Tineo MD [address] [facility] [address] [place] [address] 11/10/20
--- OUTSIDE RECORDS SUMMARY | 2025-05-29 01:53 | XMS_ITS | Clinical Summary ---
Author Organization [facility] [address] Address [address] [place] [address] Care Team Providers Care Curing Finisher Name Role Phone Kye Pierce MD Primary Care Provider [phone] Allergies No known active allergies Medications wfueafvm-bpu-FZ-l ycopen-lutein (CENTRUM SILVER) 0.4-300-250 mg-mcg-mcg tablet take one daily 0 0 7 Active vit C-vit S-vbenbz-qof-om-3 (OCUVITE) 146-83-7-150 at-rnqh-ra-mg capsule take one daily 0 0 7 [...] (11/04/2021): Added automatically from request for surgery [id number] Glaucoma suspect of both eyes 11/06/2018 Pseudophakia of both eyes 11/06/2018 Exudative age-related macular degeneration 11/10 Hypertension 01/26/2011 Encounters Date Type Department Care Team Description 05/07/2025 10:30 AM CDT Office Visit 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 Gender Identity Male 11/02/2020 9:25 PM HEATING AND VENTILATION ENGINEER Sexual Orientation Bisexual 11/02/2020 9: 25 PM HEATING AND VENTILATION ENGINEER Obstetrics History Last Filed Vital Signs Vital Sign Reading Time Taken Comments Blood Pressure 116/64 05/07/2025 10:26 AM CDT Pulse 71 05/07/2025 10:26 AM CDT Temperature 36.6 C (97.8 F) 08/30/2022 10:20 AM HEATING AND VENTILATION ENGINEER Respiratory Rate 18 08/07/2024 3:46 PM CDT [...] 2019 Zoster Vaccine Completed 10/18/2021, 07/14/2021 Insurance [facility] MEDICARE MEDICARE [facility] MEDICARE [facility] MEDICARE Advance Directives For more information, please contact: [phone] Documents on File Type Date Recorded Patient Mud Jack Operator Expl anation ADVANCE DIRECTIVE 11/30/2021 7:07 AM ADVANCE DIRECTIVE 02/24/2013 12:00 AM VALERIO R OF MARKET SALES MANAGER FINANCIAL/MEDICAL Care Teams Curing Finisher Relationship Specialty Start Date End Date Kye Pierce MD PCP - General Family Practice 08/31/23
--- OUTSIDE RECORDS SUMMARY | 2025-05-29 01:54 | XMS_ITS | Clinical Summary ---
Author Organization [facility] Address [address] [facility] [place] [address] Care Team Providers Care Nailing Machine Operator Name Role Phone Beau Goodwin Primary Care Provider [phone] Source Comments [facility],non-owned Affiliates and Associated Physician Practices is amultiple site organization consisting of ambulatory clinics and hospital sitesin [place], [place], [place] and [place]. This disclosure is being madepursuant to the Care Everywhere program and may not contain all information available regarding this patient. 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
--- OUTSIDE RECORDS SUMMARY | 2025-05-29 01:54 | XMS_ITS | Clinical Summary ---
[facility] Address [address] [place] [address] [place] [address] Care Team Providers Care Armature Winder [employer]otive Name Role Phone Unavailable Primary Care Provider [...] 2025 Insurance MEDICARE PART A AND B [facility] [id number]
--- NOTE | 2025-05-29 08:24 | WPDHPUPDATE1 ---
History and Physical Update Update Date/Time: 05/29/25 08:24 History and Physical has been reviewed, including an updated exam of the patient. There are NO changes in the patient's condition. Risks, benefits, and alternatives have been discussed and questions answered. Patient agrees to proceed with procedure.
[2025-05-29] MEDS: ACETAMINOPHEN 500 MG TABLET 1000 MG PO (09:40)
--- NOTE | 2025-05-29 10:11 | P.PNAN_ITS ---
Anes - Initial Pre Proc Eval Procedure: Operation Date: 05/29/25 11:00 Proposed Procedures p Left Ankle Peroneal Tendon Reconstruction - Judah Alarcon MD Date/Time: 05/29/25 10:11 Surgeon: Judah Alarcon MD Pre Op Diagnosis: left ankle peroneal tendon tear Patient Data Age: 80 Gender: M Height: 1.73 m Weight: 96.2 kg Last Vital Signs Temp 36.5 C 05/29/25 09:01 Pulse 62 05/29/25 09:01 Resp 18 05/29/25 09:01 BP 125/57 L 05/29/25 09:01 Pulse Ox 96 05/29/25 09:01 O2 Del Method Room Air 05/29/25 09:01 Allergies Allergy/AdvReac Type Severity Reaction Status Date / Time No Known Allergies Allergy Verified 05/29/25 09:44 Home Medications ?Medication ?Instructions ?Recorded ?Confirmed ?Type aspirin 81 mg tablet,delayed 81 mg PO DAILY 09/03/19 05/29/25 History release (Adult Low Dose Aspirin) multivitamin (Daily Multi-Vitamin 1 tablet PO DAILY 09/03/19 05/29/25 History tablet) vit C 50 mg-E 15 unit-zinc cit 4.5 1 tablet PO DAILY 10/18/19 05/29/25 History mg-lutein 2.5 mg-zeaxan chew tablet ([facility]) cholecalciferol (vitamin D3) 50 2,000 unit PO DAILY 02/24/21 05/29/25 History mcg (2,000 unit) capsule (Vitamin D3) carvedilol 12.5 mg tablet 12.5 mg PO Q12H 02/19/24 05/29/25 History adalimumab 40 mg/0.8 mL 40 mg (0.8 mL) subcut [id number] #2 ea 08/29/24 05/21/25 Rx subcutaneous syringe kit (Humira) ferrous sulfate 325 mg (65 mg 325 mg PO WEEKLY 11/11/24 05/29/25 History iron) tablet (Feosol) fluticasone propionate 50 2 spray intranasal DAILY #48 mL 11/28/24 05/21/25 Rx mcg/actuation nasal spray,suspension (Flonase Allergy Relief) empagliflozin 10 mg tablet 10 mg PO DAILY 12/05/24 05/21/25 History (Jardiance) atorvastatin 80 mg tablet See Rx Instructions .Route 05/01/25 05/29/25 Rx .COMPLEX #90 tabs doxazosin 2 mg tablet See Rx Instructions .Route 05/01/25 05/21/25 Rx .COMPLEX #90 tabs valacyclovir 1 gram tablet 2,000 mg (2 x 1 gram) PO BID PRN 05/01/25 05/21/25 Rx cold sores #28 tabs hydralazine 10 mg tablet See Rx Instructions .Route 05/08/25 05/29/25 Rx .COMPLEX #180 tabs pioglitazone 15 mg tablet 15 mg PO HS 05/19/25 05/21/25 History doxycycline hyclate 100 mg capsule 100 mg PO BID #20 caps 05/29/25 Rx hydrocodone 7.5 mg-acetaminophen 1 tablet PO Q6H PRN pain #30 tabs 05/29/25 Rx 325 mg tablet Laboratory Tests 05/29/25 09:28 POC Capillary Glucose 113 H mg/dl (65-105) Patient hx anesthesia problems: none Family hx anesthesia problems: none Results Review: All pre-operative results and documents have been reviewed as part of the pre- operative evaluation. [facility] Past Medical History Medical History MRSA (methicillin resistant staph aureus) culture positive Abscess of tendon sheath, left ankle and foot Left hand pain 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 Alarcon History of coronary artery stent placement x1 2017 History of hemicolectomy due to Crohn's Hx of cataract extraction Family History Family History Mother Family history of heart disease in male family member before age 55 Family history of cardiovascular disease Patient's mother is Diabetes mellitus Heart disease Hypertension Father Family history of heart disease in male family member before age 55 Patient's father is Heart disease Sibling Family history of malignant neoplasm Patient's sister is Breast cancer Other High cholesterol Social History Social History Social History: the patient is single and never . He has no children. He is a lifelong nonsmoker. He denies any alcohol marijuana or illicit drugs. He states that his sister is his durable power civil rights attorney for healthcare. The patient desires to be a full code. He is retired from [employer]. He lives alone. Smoking status: Never smoker Second hand tobacco smoke exposure: No Alcohol intake: never Substance use: never Substance use type: does not use Do You Feel Safe in your Home?: Yes Lack of Transportation: No Lack of Food: Never True Current Housing: I Have Housing Concerned About Future Housing: No Difficulty Paying Gas/Electric Bills: No Difficulty Paying for Meds: No Currently Unemployed: No Education: Associate Degree Difficulty w/ Childcare or Family Care: No Living arrangements: alone Occupation/Education: retired Gender identity (if verbalized by the patient): Male Sexual Orientation (if Verbalized by the Patient): Straight or Heterosexual Spiritual care concerns: No Agree to blood products: Yes Anes - Eval Final PreProcedure Day of Procedure 05/29/25 10:11 Patient weight: obese Heart: regular rate and rhythm Lungs: clear to auscultation Airway: Mallampati scale class III Neurological: alert and oriented Last oral intake: >/= 8 hours ASA classification: III Emergent: no Anesthetic plan: proceed Anesthesia type and monitoring: general LMA and standard monitoring Results Review: All pre-operative results and documents have been reviewed as part of the pre- operative evaluation. Informed Consent: The patient's anesthetic plan and its attendant risks and benefits were discussed with the patient/family/POA. Questions were solicited and answers provided to the satisfaction of the patient/family/POA.
[2025-05-29] MEDS: ceFAZolin 2 GM in SODIUM CHLORIDE 0.9% IV 50 ML 100 ML IVPB (10:50)
[2025-05-29] MEDS: VANCOMYCIN HCL 1,000 MG VIAL 1000 MG TOPICAL (11:09)
[2025-05-29] MEDS: LACTATED RINGERS 1,000 ML 30 ML IV CONT (11:38)
--- NOTE | 2025-05-29 11:51 | W.PM.PROC2 ---
Procedure Note - Detailed Date of Procedure 05/29/25 Pre-op Diagnosis left ankle peroneal tendon tear Post-op Diagnosis Other (Left calcaneal cyst with retained cement) Procedure Performed Partial excision of left calcaneus Surgeon Judah Alarcon MD Municipal Firefighter 1st housekeeper and laundry assistant Anesthesia General Indications 80-year-old with left lateral hindfoot swelling and chronic drainage. MRI demonstrates peroneal tendinitis. Due to the continued swelling and drainage he presents for operative treatment. Findings Left ankle peroneal tendon sheath intact. Peroneal brevis and longus tendons intact without tear or evidence of tenosynovitis. Sinus tract from lateral hindfoot incision which continued posterior to the peroneal tendon sheath to the lateral calcaneus site of previous bone cement placement. Small amount of purulent appearing fluid and necrotic appearing tissue. Description of Procedure Patient identified in the preoperative holding. Informed consent given. Operative extremity marked. Patient received intravenous antibiotics. Patient brought to the operating room where underwent sedation anesthetic by anesthesia team. Positioned supine on operating room table. Time-out performed confirming the patient, site of the surgery and the plan. Left foot ankle prepped and draped usual sterile surgical fashion using a Betadine prep solution. Foot ankle exsanguinated and calf tourniquet inflated to 250 mmHg. Ulcer on the lateral aspect of the ankle posterior to the fibula was identified which was 1 cm length, 0.5 cm width with purulent drainage. The incision was extended proximally and distally with 15 blade knife after administering local anesthetic. Dissection carried down through the fascia. Peroneal retinaculum noted to be intact. The superficial peroneal retinaculum was incised in line with the skin incision the peroneal tendons inspected. There were noted to be intact without inflammation or tear. This was sharply excised with 15 blade knife and a rongeur. The peroneal tendons are otherwise intact. Wound was irrigated tendon sheath closed with 3-0 Monocryl interrupted suture. The ulcer through the incision that was present was followed down posterior to the peroneal tendon sheath and the sinus tract was noted to be coming from the lateral calcaneus. Peroneals retracted anteriorly which allowed exposure of the lateral calcaneus. Previous surgery with placement cement calcaneus noted. Rongeur used to debride the lateral calcaneus and the cement. Osteotomes used to remove the cement and curette used to debride the space where the cement was. Infected material was removed, excised and passed off. Curette was used to assist with this. After curette the defect in the calcaneus measured 4 cm anteriorly, 3 cm posteriorly and 3 cm dorsal to plantar. No other infected material was noted. Deep cultures were taken and thorough irrigation was done. Vancomycin powder was then placed into the bone cavity as previous culture showed MRSA. The defect was then filled with cancellous chips allograft bone. Deep tissue was closed with 2-0 Vicryl interrupted suture. Subcutaneous tissue repair 3-0 Monocryl interrupted suture. After wound irrigation the skin was closed with interrupted 4-0 nylon suture. Tourniquet released. Sterile dressing applied. The patient was then woken from anesthesia, extubated and taken to the recovery room in stable condition. All sponge, needle, instrument counts were correct at the end of the case. Implants Cancellous allograft bone Estimated Blood Loss 5 Tourniquet Time Total Tourniquet Time: 40 Drains No Packing No Pathology Other (Cultures from lateral hindfoot wound) Complications None Condition Stable Disposition PACU [facility] Billing Surgery - Charge Forward: Surgery Billing ([id number])
== END 2025-05-29 13:10 | disposition home or self-care (01) ==
PROVIDERS: PCP Nurse Practitioner Family; Visit Provider Orthopaedic Surgery
PROC: (CPT 28120; principal; 2025-05-29 11:00)
DX: M76.72 Peroneal tendinitis, left leg (principal); E78.5 Hyperlipidemia, unspecified; E11.65 Type 2 diabetes mellitus with hyperglycemia; E11.22 Type 2 diabetes mellitus with diabetic chronic kidney disease; I12.9 Hypertensive chronic kidney disease with stage 1 through stage 4 chronic kidney disease, or unspecified chronic kidney disease; N18.4 Chronic kidney disease, stage 4 (severe); I25.2 Old myocardial infarction; K50.90 Crohn's disease, unspecified, without complications; M17.0 Bilateral primary osteoarthritis of knee; E66.9 Obesity, unspecified; Z68.32 Body mass index [BMI] 32.0-32.9, adult; Z79.82 Long term (current) use of aspirin; Z79.620 Long term (current) use of immunosuppressive biologic; Z79.84 Long term (current) use of oral hypoglycemic drugs; Z79.891 Long term (current) use of opiate analgesic; Z98.890 Other specified postprocedural states; Z95.5 Presence of coronary angioplasty implant and graft; Z90.49 Acquired absence of other specified parts of digestive tract; Z85.828 Personal history of other malignant neoplasm of skin; Z80.3 Family history of malignant neoplasm of breast; Z82.49 Family history of ischemic heart disease and other diseases of the circulatory system
CPT/HCPCS: 28120; 82948; 87070; 87075; 87205; J0690; A9270; C1713; J1100; J2003; J2405; J2704; J3010; J3373; J7120

== ENCOUNTER 2025-06-09 07:30 | Outpatient (RCR) | payer MEDICARE, SELFPAY ==
--- NOTE | 2025-06-03 08:46 | PM.PNORT ---
Progress Note: A&P Assessment and Plan (1) Peroneal tendinitis of left lower leg: Code(s): M76.72 - Peroneal tendinitis, left leg Status: Acute (2) Acute osteomyelitis of left calcaneus: Code(s): M86.172 - Other acute osteomyelitis, left ankle and foot Status: Acute Assessment and Plan: 5 days status post debridement of left calcaneus, removal of bone cement and bone grafting. Operative findings and treatment reviewed with patient. Total contact cast for offloading and protection of calcaneus and wound incision. Continue with oral antibiotics. Continue follow cultures. Follow-up in 2 weeks for cast change and suture removal. Plan to cast for 1 more week after the suture removal and then transition to fracture boot if wound healed. Subjective Subjective Date/Time Seen: 06/03/25 08:46 Post Op day: 5 Principal diagnosis: Left calcaneal osteomyelitis Interval history: postop visit in the [facility] for left calcaneus osteomyelitis. Status post debridement. Was in a splint. No complaints. Exam Const: General: No confusion Orientation/consciousness: No confusion HENMT: Head: normal to inspection, normocephalic and atraumatic Neck: Neck: supple and nontender Resp: Effort & Inspection: normal respiratory effort and no audible wheezes Cardio: Rate: regular rate Rhythm: regular rhythm Neuro: General: No confusion Extrem: General: capillary refill normal Right upper extremity: normal to inspection Left upper extremity: normal to inspection Right lower extremity: normal to inspection and hip/thigh Details: normal to inspection Left lower extremity: hip/thigh, knee, ankle (no calf tenderness) and foot Other: Incision on the lateral aspect of the ankle with previous noted wound dehiscence now completely closed. Small dried blood blister on the distal aspect of the hindfoot incision. No open wounds underlying scab. No purulence, no malodor. No surrounding erythema. No signigicant swelling. Capillary refill in the toes and sensation intact to light touch. Negative Homans sign. Psych: Affect: normal affect
--- NOTE | 2025-06-03 08:49 | WPDWOUNDNOTE ---
Wound Care Note Date/Time: 06/03/25 08:49 Fracture/Casting/Strapping Pre Procedure Consent was obtained, Procedures/risks were explained, Questions were answered, Correct patient identified and Correct side and site confirmed Casting Cast: Total Contact Leg Cast (left) Modification and Status: Diabetic Application Exam of Affected Area: Color: Normal, Temp: Normal, Pulse: Normal, Blanching: Normal, Capillary Refill: Normal and Sensory Exam: Normal Swelling: Yes (mild) and Tenderness: No Skin Apperance: Clean and Dry and Intact Care: Alcohol Wipes Patient Tolerated Procedure Well: Yes Post Procedure Patient tolerated the procedure well?: Tolerated procedure well
[2025-06-03 13:07] VITALS: BMI 32.2
--- NOTE | 2025-06-09 07:52 | WNDPHOTO ---
PHOTO ONLY - See Nursing Notes and/ or assessments for documentation.
== END 2025-08-18 09:17 | disposition home or self-care (01) ==
LOC: ANHWOC 07:30
PROVIDERS: PCP Nurse Practitioner Family; Visit Provider Orthopaedic Surgery
DX: M65.072 Abscess of tendon sheath, left ankle and foot (principal); H83.8X9 Other specified diseases of inner ear, unspecified ear
CPT/HCPCS: 29445; 99214; G0463; L2116

== ENCOUNTER 2025-09-28 11:51 | Emergency (ER) | payer MEDICARE, SELFPAY ==
--- NOTE | ~2025-09-28 | XR_ITS ---
Examination: XR chest 1V portable Clinical History: CP Comparison: 12/01/2022 Technique: Portable AP Findings: Heart size normal. Mild bibasilar atelectasis and/or scarring. No acute bony abnormality. IMPRESSION: 1. No acute cardiopulmonary findings given portable technique. Reviewed, dictated and finalized at location R. RVISOR DRYING
--- NOTE | ~2025-09-28 | CT_ITS ---
CT HEAD NON-CONTRAST Clinical History: bad headache with vertigo yday, now resolved Comparison: 11/27/2024 Technique: Unenhanced axial images skull base to vertex Coronal, sagittal reformats CT images acquired with automatic exposure control for dose reduction DLP: 681 mGy-cm Findings: Age-related atrophy. Mild white matter changes, typically chronic microvascular ischemic disease. Sulci, ventricles: Unremarkable. No intracerebral hemorrhage. No evidence acute territorial infarct. No mass effect, midline shift. Bony calvarium intact. Visualized paranasal sinuses: Clear. Mastoid air cells: Clear. Vertebral artery V4 segment atherosclerotic disease. IMPRESSION: 1. No acute intracranial findings. Reviewed, dictated and finalized at location R. K GRADER
--- NOTE | 2025-09-28 11:53 | ECG_ITS ---
Test Date: 2025-09-28 11:58:18 Measurements Intervals [place] Rate: 69 P: 48 MT: 175 QRS: -14 QRSD: 99 T: 50 QT: 374 QTc: 402 Interpretive Statements SINUS RHYTHM CONSIDER ANTERIOR INFARCT, AGE INDETERMINATE BASELINE WANDER I, III ABNORMAL ECG Compared to ECG 02/06/2025 09:33:22 First degree AV block no longer present Electronically Signed On 09-28-2025 15:40:29 SECURITY ASSURANCE ANALYST by Anil Irizarry D.O.
[2025-09-28 11:58] VITALS: BP 127/62; PULSE 67; RESP 16; TEMP 36.5; O2SAT 100
[2025-09-28] MEDS: ASPIRIN 81 MG CHEWABLE TABLET 324 MG PO (12:08)
[2025-09-28 12:10] LABS: Hematocrit 30.9 % (42.0-52.0); Hemoglobin 9.9 g/dL (14.0-18.0); Immature Granulocyte Percent A 0.6 % (0-0.5); Lymphocytes Absolute Auto 3.02 K/mm3 (0.9-3.2); Mean Corpuscular HGB Conc 32.0 g/dl (32-36); Mean Corpuscular Hemoglobin 31.3 pg (26-34); Mean Corpuscular Volume 97.8 fl (80-100); Nucleated Red Blood Cells Absolute Auto 0.000 K/mm3 (0.0-0.012); Nucleated Red Blood Cells Perc 0.0 % (0.0-0.2); Platelet Count Result 155 k/mm3 (150-375); Red Blood Count 3.16 M/mm3 (4.6-6.20); White Blood Count 8.5 K/mm3 (4.5-10.0)
[2025-09-28 12:23] LABS: Alanine Aminotransferase 23 U/L (6-50); Albumin Level 3.7 g/dL (3.5-5.1); Alkaline Phosphatase 87 U/L (38-126); Anion Gap 9 mmol/L (4-12); Aspartate Amino Transferase 29 U/L (17-59); Bilirubin,Total 0.5 mg/dL (0.2-1.3); Blood Urea Nitrogen 57 mg/dL (9-20); Calcium 8.9 mg/dL (8.4-10.2); Carbon Dioxide 15 mmol/L (22-30); Chloride 114 mmol/L (98-107); Estimated CRCL calculation 12 ml/min; Estimated Glomerular Filt Rate 11; Glucose 104 mg/dL (65-110); INR 1.2; Lipase 201 U/L (23-300); Potassium 4.2 mmol/L (3.4-5.0); Prothrombin Time 15.1 Seconds (11.1-14.7); Sodium 138 mmol/L (137-145); Total Protein 7.2 g/dL (6.3-8.2)
[2025-09-28 12:24] LABS: Partial Thromboplastin Time 26.8 Seconds (22.3-36.8)
[2025-09-28 12:34] LABS: Troponin I < 0.012 ng/mL (0.000-0.034)
[2025-09-28 12:41] VITALS: PULSE 58
[2025-09-28 12:42] VITALS: BP 135/62; PULSE 58; RESP 16; O2SAT 100
--- NOTE | 2025-09-28 13:10 | PC.NURSE ---
Pt to CT scan via stretcher at this time.
[2025-09-28 14:17] VITALS: BP 147/72; PULSE 59; RESP 15; O2SAT 100
--- NOTE | 2025-09-28 14:22 | ECG_ITS ---
Test Date: 2025-09-28 14:47:57 Measurements Intervals [place] Rate: 62 P: 35 RI: 189 QRS: -12 QRSD: 98 T: 34 QT: 394 QTc: 403 Interpretive Statements SINUS RHYTHM WITH OCCASIONAL SUPRAVENTRICULAR PREMATURE COMPLEXES CONSIDER ANTERIOR INFARCT, AGE INDETERMINATE BASELINE ARTIFACT- I, II, III, AVR, AVL, AVF ABNORMAL ECG Compared to ECG 09/28/2025 11:58:18 NO SIGNIFICANT CHANGE Electronically Signed On 09-28-2025 15:45:09 PERIOPERATIVE EDUCATOR by Anil Irizarry D.O.
[2025-09-28 15:18] LABS: Troponin I < 0.012 ng/mL (0.000-0.034)
[2025-09-28 15:27] VITALS: PULSE 64; RESP 12; O2SAT 100
--- NOTE | 2025-09-28 15:31 | ED.CHESTPAIN ---
HPI - Chest Pain General Chief Complaint: Chest Pain Stated Complaint: CHEST PAIN X1D Time Seen by Provider: 09/28/25 12:02 History of Present Illness HPI narrative: Yesterday patient had an episode where he felt like he heard a pop in his head, and very dizzy. The episode resolved quickly. He also has been having some chest pain, unsure if it started yesterday along with the dizziness at the same time but it definitely is worse now, describes it being on both sides, does not radiate, no shortness of breath, nausea or vomiting. No focal numbness or weakness Related Data Home Medications ?Medication ?Instructions ?Recorded ?Confirmed ?Last Taken ?Type aspirin 81 mg tablet,delayed 81 mg PO DAILY 09/03/19 09/17/25 05/28/25 History release (Adult Low Dose Aspirin) multivitamin (Daily Multi-Vitamin 1 tablet PO DAILY 09/03/19 09/17/25 05/25/25 History tablet) vit C 50 mg-E 15 unit-zinc cit 4.5 1 tablet PO DAILY 10/18/19 09/17/25 05/25/25 History mg-lutein 2.5 mg-zeaxan chew tablet ([facility]) cholecalciferol (vitamin D3) 50 2,000 unit PO DAILY 02/24/21 09/17/25 05/25/25 History mcg (2,000 unit) capsule (Vitamin D3) carvedilol 12.5 mg tablet 12.5 mg PO Q12H 02/19/24 09/17/25 05/29/25 History ferrous sulfate 325 mg (65 mg 325 mg PO WEEKLY 11/11/24 09/17/25 05/26/25 History iron) tablet (Feosol) pioglitazone 15 mg tablet 15 mg PO HS 05/19/25 09/17/25 Unknown History finasteride 5 mg tablet mg PO 09/17/25 09/17/25 Unknown History Allergies Allergy/AdvReac Type Severity Reaction Status Date / Time No Known Allergies Allergy Verified 09/28/25 11:52 Review of Systems Review of Systems: All systems reviewed & are unremarkable except as noted in HPI and below PMFSH Past Medical History Medical History MRSA (methicillin resistant staph aureus) culture positive Abscess of tendon sheath, left ankle and foot Left hand pain 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 Alarcon History of coronary artery stent placement x1 2017 History of hemicolectomy due to Crohn's Hx of cataract extraction Family History Family History Mother Family history of heart disease in male family member before age 55 Family history of cardiovascular disease Patient's mother is Diabetes mellitus Heart disease Hypertension Father Family history of heart disease in male family member before age 55 Patient's father is Heart disease Sibling Family history of malignant neoplasm Patient's sister is Breast cancer Other High cholesterol Social History Social History Social History: the patient is single and never . He has no children. He is a lifelong nonsmoker. He denies any alcohol marijuana or illicit drugs. He states that his sister is his durable power cable television access coordinator for healthcare. The patient desires to be a full code. He is retired from [employer]. He lives alone. Smoking status: Never smoker Second hand tobacco smoke exposure: No Alcohol intake: never Substance use: never Substance use type: does not use Lack of Transportation: No Lack of Food: Never True Current Housing: I Have Housing Concerned About Future Housing: No Difficulty Paying Gas/Electric Bills: No Difficulty Paying for Meds: No Currently Unemployed: No Education: Associate Degree Difficulty w/ Childcare or Family Care: No Living arrangements: alone Occupation/Education: retired Gender identity (if verbalized by the patient): Male Sexual Orientation (if Verbalized by the Patient): Straight or Heterosexual Spiritual care concerns: No Agree to blood products: Yes Exam Narrative: EXAMINATION OF ORGAN SYSTEMS/BODY AREAS: Constitutional: Vital signs per nursing GENERAL:No acute distress, non-toxic appearing. HEAD: Normal with no signs of head trauma. EYES: EOMI, conjunctiva normal ENT: Hearing grossly intact LUNGS: Nonlabored breathing. Clear auscultation bilaterally HEART: Regular rate and rhythm; regular DP and radial pulses bilaterally ABD: Soft, nontender to palpation EXT: Normal range of motion SKIN: No rashes or lesions. NEURO: Alert. No gross focal sensory or strength deficits. PSYCH: Normal affect Course Vital Signs Vital signs: Vital Signs Temperature 97.7 F 09/28/25 11:58 Pulse Rate 67 09/28/25 11:58 Respiratory Rate 16 09/28/25 11:58 Blood Pressure 127/62 09/28/25 11:58 Pulse Oximetry 100 09/28/25 11:58 Oxygen Delivery Room Air 09/28/25 11:58 Temperature 97.7 F 09/28/25 11:58 Pulse Rate 64 09/28/25 15:27 Respiratory Rate 12 09/28/25 15:27 Blood Pressure 147/72 H 09/28/25 14:17 Pulse Oximetry 100 09/28/25 15:27 Oxygen Delivery Room Air 09/28/25 12:11 MDM MDM Narrative Medical decision making narrative: ED COURSE AND MEDICAL DECISION MAKIN-year-old male presenting with chest pain. EKG done in triage negative for acute ischemic changes. Cardiac workup is initiated. EKG: Performed in triage and interpreted by me. Normal sinus rhythm. Rate 69. Normal axis. MN normal. QRS duration normal. QTc normal. No pathologic Q waves. No ST segment elevation or depression to suggest acute ischemia. No RV strain pattern. HEART score is 3 with no acute ischemic changes on EKG and negative troponin making ACS unlikely. Wells low risk with no shortness of breath making PE unlikely. Presentation not consistent with dissection or aneurysm without radiation of pain or pulse deficits. CXR negative for mediastinal widening. No abdominal pain or signs of sepsis that would be concerning for esophageal perforation or mediastinitis. No cardiomegaly or JVD to suggest pericardial effusion/tamponade. Repeat troponin is negative. EKG - 12-Lead: Performed at 1447. Interpreted by me. Sinus rhythm with PVCs. Rate 62. Normal axis. MN-interval normal. QRS duration normal. QTc normal. No ST segment elevation or depression. T-wave normal. Impression: No EKG evidence of acute ischemia or dysrhythmia. CT brain without acute abnormality. Given the patient's risk factors, I did offer admission for Cardiology consultation, patient declines this and would rather go home, I have asked her to follow-up with his route sales specialist and come back to the ER for any further issues. With shared decision making I did offer CT scan with contrast which he declined to to his kidney function. I did let him know if he changes mind he can always return to the ER or his symptoms return or worsen. On repeat evaluation just prior to discharge, the patient is no acute distress. I had a long discussion with the patient and with shared decision making, he is comfortable with outpatient management. He was given clear return instructions by myself in person as well as on discharge paperwork. Differential Diagnosis Differential Diagnosis: ACS, pneumonia, MSK, etc. Lab Data 09/28/25 12:05 09/28/25 12:05 Labs: Lab Results 09/28/25 09/28/25 Range/Units 12: 14:50 WBC 8.5 (4.5-10.0) K/mm3 RBC 3.16 L (4.6-6.20) M/mm3 Hgb 9.9 L (14.0-18.0) g/dL Hct 30.9 L (42.0-52.0) % MCV 97.8 (80-100) fl MCH 31.3 (26-34) pg MCHC 32.0 (32-36) g/dl RDW 15.2 H (11.5-14.5) % Plt Count 155 (150-375) k/mm3 MPV 9.0 (7.4-10.4) fl Immature Gran % (Auto) 0.6 H (0-0.5) % Neut % (Auto) 48.8 (45.5-73.1) % Lymph % (Auto) 35.6 (18.3-44.2) % Crawford % (Auto) 11.4 H (2.6-8.5) % Eos % (Auto) 3.2 (0-4.4) % Baso % (Auto) 0.4 (0.2-1.2) % Lymph # (Auto) 3.02 (0.9-3.2) K/mm3 Crawford # (Auto) 1.0 H (0.1-0.6) K/mm3 Eos # (Auto) 0.3 (0-0.3) K/mm3 Baso # (Auto) 0.0 (0.0-0.1) K/mm3 Abs Immat Gran (auto) 0.05 H (0.00-0.031) K/mm3 Absolute Neuts (auto) 4.1 (1.3-6.7) K/mm3 Absolute Nucleated RBC 0.000 (0.0-0.012) K/mm3 Nucleated RBC % 0.0 (0.0-0.2) % PT 15.1 H (11.1-14.7) Seconds INR 1.2 APTT 26.8 (22.3-36.8) Seconds Sodium 138 (137-145) mmol/L Potassium 4.2 (3.4-5.0) mmol/L Chloride 114 H (98-107) mmol/L Carbon Dioxide 15 L (22-30) mmol/L Anion Gap 9 (4-12) mmol/L BUN 57 H (9-20) mg/dL Creatinine 5.05 H (0.7-1.3) mg/dL Estim Creat Clear Calc 12 ml/min Estimated GFR 11 L (59 - ) Glucose 104 (65-110) mg/dL Calcium 8.9 (8.4-10.2) mg/dL Total Bilirubin 0.5 (0.2-1.3) mg/dL AST 29 (17-59) U/L ALT 23 (6-50) U/L Alkaline Phosphatase 87 (38-126) U/L Troponin I < 0.012 < 0.012 (0.000-0.034) ng/mL Total Protein 7.2 (6.3-8.2) g/dL Albumin 3.7 (3.5-5.1) g/dL Lipase 201 (23-300) U/L Imaging Data Radiologist's impression: ITS Impressions Chest X-Ray 09/28/25 12:23 IMPRESSION: 1. No acute cardiopulmonary findings given portable technique. Head CT 09/28/25 13:20 IMPRESSION: 1. No acute intracranial findings. Discharge Plan Discharge Clinical Impression: Chest pain Patient Disposition: Home Condition: Stable Instructions: Chest Pain (ED) Additional Instructions: Your labs and imaging today thankfully look normal. Please follow up with your route sales specialist. If your pain worsens or if you change your mind about staying in the hospital, please come back to the ER Patient Language: Telugu Prescriptions: No Action multivitamin [Daily Multi-Vitamin] Tablet 1 tablet PO DAILY aspirin [Adult Low Dose Aspirin] 81 mg tablet,delayed release (DR/EC) 81 mg PO DAILY ferrous sulfate [Feosol] 325 mg (65 mg iron) tablet 325 mg PO WEEKLY Patient Comments: TAKES ON MONDAYS Humira 40 mg/0.8 mL syringe kit 40 mg SUB-Q [id number] Qty: 2 11RF Rx Instructions: Every 2 weeks on a Monday atorvastatin 80 mg tablet See Rx Instructions .ROUTE .COMPLEX Qty: 90 3RF Dose Instruction: TAKE 1 TABLET BY MOUTH DAILY Rx Instructions: TAKE 1 TABLET BY MOUTH DAILY doxazosin 2 mg tablet See Rx Instructions .ROUTE .COMPLEX Qty: 90 3RF Dose Instruction: TAKE 1 TABLET BY MOUTH EVERY EVENING Rx Instructions: TAKE 1 TABLET BY MOUTH EVERY EVENING finasteride 5 mg tablet PO carvedilol 12.5 mg tablet 12.5 mg PO Q12H Rx Instructions: must administer with a meal/food Ocuvite Eye Health 50 mg-15 unit- 4.5 mg-2.5 mg Tablet,Chewable 1 tablet PO DAILY pioglitazone 15 mg tablet 15 mg PO HS hydrocodone-acetaminophen 7.5-325 mg tablet 1 tablet PO Q6H PRN (Reason: pain) Qty: 30 0RF sennosides-docusate sodium [Senna with Docusate Sodium] 8.6-50 mg tablet 1 tab-cap PO BID PRN (Reason: constipation) Qty: 20 1RF cholecalciferol (vitamin D3) [Vitamin D3] 50 mcg (2,000 unit) Capsule 2,000 unit PO DAILY fluticasone propionate [Flonase Allergy Relief] 50 mcg/actuation spray,suspension 2 spray intranasal DAILY Qty: 48 1RF Rx Instructions: administer into each nostril hydralazine 10 mg tablet See Rx Instructions .ROUTE .COMPLEX Qty: 180 1RF Dose Instruction: TAKE 1 TABLET BY MOUTH EVERY 12 HOURS Rx Instructions: TAKE 1 TABLET BY MOUTH EVERY 12 HOURS valacyclovir 1 gram tablet 2,000 mg PO BID PRN (Reason: cold sores) Qty: 28 0RF Rx Instructions: take 2 tablets by mouth twice a day for one day for outbreak Follow-up/Referrals: David Harvey MD [Physician, Cardiology] - 3 Days Krystina Mckeon APRN [Primary Care Provider, Internal Medicine]
[2025-09-28] MEDS: ACETAMINOPHEN 500 MG TABLET 1000 MG PO (15:51)
== END 2025-09-28 15:58 | disposition home or self-care (01) ==
PROVIDERS: Emergency Provider Emergency Medicine; PCP Nurse Practitioner Family
DX: R07.9 Chest pain, unspecified (principal); E11.22 Type 2 diabetes mellitus with diabetic chronic kidney disease; I12.9 Hypertensive chronic kidney disease with stage 1 through stage 4 chronic kidney disease, or unspecified chronic kidney disease; N18.4 Chronic kidney disease, stage 4 (severe); I25.2 Old myocardial infarction; E78.5 Hyperlipidemia, unspecified; K50.90 Crohn's disease, unspecified, without complications; M17.12 Unilateral primary osteoarthritis, left knee; Z95.5 Presence of coronary angioplasty implant and graft; Z86.14 Personal history of Methicillin resistant Staphylococcus aureus infection; Z85.828 Personal history of other malignant neoplasm of skin; Z90.49 Acquired absence of other specified parts of digestive tract; Z98.49 Cataract extraction status, unspecified eye; Z79.82 Long term (current) use of aspirin; Z79.899 Other long term (current) drug therapy; Z79.84 Long term (current) use of oral hypoglycemic drugs; Z79.620 Long term (current) use of immunosuppressive biologic; I49.1 Atrial premature depolarization; R94.31 Abnormal electrocardiogram [ECG] [EKG]
CPT/HCPCS: 36415; 70450; 71045; 80053; 83690; 84484; 85025; 85610; 85730; 93005; 99284; A9270